=== PATIENT | female | born 1990 | race African-American/Black ===

== ENCOUNTER 2016-09-23 07:05 | Emergency (ER) | payer SELFPAY ==
[~2016-09-23] VITALS: Ht 162.6 cm; Wt 122.5 kg
[~2016-09-23 07:05] MED LIST: PANT40TA3 PO; PENI500T PO; TRAM-29 PO
[2016-09-23 07:33] VITALS: BP 146/69
[2016-09-23] MEDS ORDERED: IBUPROFEN 600 MG TABLET. PO ONE (07:45)
--- NOTE | 2016-09-23 08:17 | PHYS DOC ---
Past Medical History Past Medical History: Asthma, Hypertension Past Surgical History: , Tonsillectomy Additional Information: Nonsmoker Alcohol Use: Occasionally Drug Use: None Adult General Chief Complaint Chief Complaint: FLU SYMPTOM HPI HPI Patient is a 25 year old female who presents with fever and cough for 4 days. She's had a fever up to 102F. She has productive cough with nasal congestion and sore throat. She's had posttussive emesis without nausea, vomiting, or abdominal pain. She reports diffuse body aches. She denies difficulty breathing or ear pain. She has an inhaler that she has used approximately once daily. She last took Tylenol at 0200. She did not receive a flu shot this year. She does have multiple coworkers who have been diagnosed with the flu. She does not have a PCP. Review of Systems Review of Systems Constitutional: Reports fever. Eyes: Denies change in visual acuity, redness, or eye pain. [] HENT: Denies ear pain. Reports nasal congestion and sore throat. Respiratory: Denies shortness of breath. Reports productive cough. Cardiovascular: Denies chest pain, palpitations or edema. [] GI: Denies abdominal pain, nausea, bloody stools or diarrhea. Reports posttussive emesis. Musculoskeletal: Denies back pain or joint pain. Reports diffuse myalgias. Integument: Denies rash or skin lesions. [] Neurologic: Denies headache, focal weakness or sensory changes. [] Endocrine: Denies polyuria or polydipsia. [] Psych: Denies anxiety or depression. [] All systems reviewed and negative unless otherwise stated in the HPI. Current Medications Current Medications Current Medications Medications (Trade) Dose Ordered Sig/Kirti Start Time Stop Time Status Last Admin Dose Admin Ibuprofen (Motrin) 600 mg 1X ONCE 09/23/16 07:45 09/23/16 07:46 DC 09/23/16 07:49 600 MG Allergies Allergies Allergies Coded Allergies Type Severity Reaction Last Updated Verified No Known Drug Allergies 08/05/13 No Physical Exam Physical Exam Constitutional: Well developed, well nourished, no acute distress, non-toxic appearance. [] HENT: Normocephalic, atraumatic, bilateral external ears normal, oropharynx moist, no oral exudates, nose normal. Bilateral TMs without erythema or bulging. There is no posterior pharyngeal erythema or tonsillar edema. Bilateral nasal turbinates are swollen and erythematous with purulent drainage. Eyes: PERRLA, EOMI, conjunctiva normal, no discharge. [] Neck: Normal range of motion, no tenderness, supple, no stridor. [] Cardiovascular: Heart rate regular rhythm, no murmur [] Lungs & Thorax: Bilateral breath sounds clear to auscultation without wheezes, rales, or rhonchi. Skin: Warm, dry, no erythema, no rash. [] Neurologic: Alert and oriented X 3, normal motor function, normal sensory function, no focal deficits noted. [] Psychologic: Affect normal, judgement normal, mood normal. [] Current Patient Data Vital Signs Vital Signs Date Time Temp Pulse Resp B/P Pulse Ox O2 Delivery O2 Flow Rate FiO2 09/23/16 07:33 99.0 81 18 98 Room Air 99.0 Lab Values Laboratory Tests Test 09/23/16 07:30 Influenza Type A Antigen Negative (NEGATIVE) Influenza Type B Antigen Negative (NEGATIVE) EKG EKG [] Radiology/Procedures Radiology/Procedures [] Course & Med Decision Making Course & Med Decision Making Pertinent Labs and Imaging studies reviewed. (See chart for details) [] Dragon Disclaimer Dragon Disclaimer This electronic medical record was generated, in whole or in part, using a voice recognition dictation system. Departure Departure Impression: Primary Impression: Influenza-like illness Disposition: 01 HOME, SELF-CARE Condition: STABLE Referrals: NO PCP (PCP) Patient Instructions: Viral Infections, [id number], Viral Syndrome Additional Instructions: Your flu test was negative today. You appear to have another viral illness. Antibiotics do not help to treat viral infections. Please continue to use your inhaler as needed for cough or shortness of breath. Use as directed. Please take the prescribed cough medication as directed. Please take [id number] Tylenol and ibuprofen for fever and pain control. Please drink lots of water to stay hydrated and get plenty of rest. Please follow up with a primary care provider within the next week. Return to the emergency department if you have high fevers, difficulty breathing , or other new or concerning symptoms. Scripts Benzonatate 200 Mg Capsule1 Cap PO TID #30 CAP Prov:SONG MYERS 09/23/16 SONG MYERS Sep 23, 2016 08:17
[2016-09-23 08:18] LABS: OBC FLU VALID
[2016-09-23] MEDS ORDERED: BENZ200C39 PO (08:31)
== END 2016-09-23 09:11 | disposition home or self-care (01) ==
LOC: ER 07:05
DX: J11.1 Influenza due to unidentified influenza virus with other respiratory manifestations (principal); J45.909 Unspecified asthma, uncomplicated; I10 Essential (primary) hypertension; Z90.89 Acquired absence of other organs
CPT/HCPCS: 87804; 99284

== ENCOUNTER 2016-10-31 19:34 | Emergency (ER) | payer SELFPAY ==
[~2016-10-31] VITALS: Ht 162.6 cm; Wt 127.0 kg
[~2016-10-31 19:34] MED LIST changes: +BENZ200C39 PO
[2016-10-31 20:33] VITALS: BP 149/100
[2016-10-31] MEDS ORDERED: NAPR550T PO (21:03)
[2016-10-31] MEDS ORDERED: TRAM1TAB4 PO (21:03)
--- NOTE | 2016-10-31 21:03 | PHYS DOC ---
Past Medical History Past Medical History: Asthma, Hypertension Past Surgical History: , Tonsillectomy Alcohol Use: Occasionally Drug Use: None Adult General Chief Complaint Chief Complaint: KNEE SWELLING HPI HPI Patient is a 25 year old female presents with atraumatic left knee pain and swelling for the past 3 days. 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 She denies any history of bone forming disorders. She denies any history of inflammatory arthritide's. Review of Systems Review of Systems Constitutional: Denies fever or chills [] Eyes: Denies change in visual acuity, redness, or eye pain [] HENT: Denies nasal congestion or sore throat [] Respiratory: Denies cough or shortness of breath [] Cardiovascular: No additional information not addressed in HPI [] GI: Denies abdominal pain, nausea, vomiting, bloody stools or diarrhea [] : Denies dysuria or hematuria [] Musculoskeletal: Denies back pain or joint pain [] Integument: Denies rash or skin lesions [] Neurologic: Denies headache, focal weakness or sensory changes [] Endocrine: Denies polyuria or polydipsia [] Allergies Allergies Allergies Coded Allergies Type Severity Reaction Last Updated Verified No Known Drug Allergies 08/05/13 No Physical Exam Physical Exam Constitutional: Well developed, well nourished, no acute distress, non-toxic appearance. [] HENT: Normocephalic, atraumatic, bilateral external ears normal, oropharynx moist, no oral exudates, nose normal. [] Eyes: PERRLA, EOMI, conjunctiva normal, no discharge. [] Neck: Normal range of motion, no tenderness, supple, no stridor. [] Cardiovascular:Heart rate regular rhythm, no murmur [] Lungs & Thorax: Bilateral breath sounds clear to auscultation [] Abdomen: Bowel sounds normal, soft, no tenderness, no masses, no pulsatile masses. [] Skin: Warm, dry, no erythema, no rash. [] Back: No tenderness, no CVA tenderness. [] Extremities: Left knee with swelling and tenderness to the suprapatellar region. There is no palpable defect. Extensor mechanism is intact. There is no fusiform swelling or erythema. Neurologic: Alert and oriented X 3, normal motor function, normal sensory function, no focal deficits noted. [] Psychologic: Affect normal, judgement normal, mood normal. [] Current Patient Data Vital Signs Vital Signs Date Time Temp Pulse Resp B/P Pulse Ox O2 Delivery O2 Flow Rate FiO2 10/31/16 20:33 97.6 78 16 99 Room Air 97.6 Lab Values Laboratory Tests Test 10/31/16 19:31 POC Urine HCG, Qualitative Hcg negative (Negative) EKG EKG [] Radiology/Procedures Radiology/Procedures [] Course & Med Decision Making Course & Med Decision Making Pertinent Labs and Imaging studies reviewed. (See chart for details) [] Dragon Disclaimer Dragon Disclaimer This electronic medical record was generated, in whole or in part, using a voice recognition dictation system. Departure Departure Impression: Primary Impression: Bursitis Condition: GOOD Referrals: NO PCP (PCP) Patient Instructions: Bursitis, [id number] Additional Instructions: 1. Take the medication as prescribed. 2. Review the discharge instructions for self-care and reasons to return the emergency department. 3. Follow-up with a primary care doctor within the next 10-14 days. Use the pamphlet provided for assistance in finding one. Scripts Tramadol Hcl/Acetaminophen (Tramadol-Acetaminophn 37.5-325)1 Each Tablet1 Tab PO Q6H PAIN #20 TAB Ref 0 Prov:MARCOS HOWARD 10/31/16 Naproxen Sodium (Anaprox Ds)550 Mg [id number] Mg PO BID #30 Prov:MARCOS HOWARD 10/31/16 MARCOS HOWARD Oct 31, 2016 21:03
== END 2016-10-31 21:16 | disposition home or self-care (01) ==
LOC: ER 19:34
DX: M70.52 Other bursitis of knee, left knee (principal); J45.909 Unspecified asthma, uncomplicated; I10 Essential (primary) hypertension
CPT/HCPCS: 81025; 99283

== ENCOUNTER 2017-02-16 10:23 | Observation (INO) | payer SELFPAY ==
[~2017-02-16] VITALS: Ht 162.6 cm; Wt 127.0 kg
[~2017-02-16 10:23] MED LIST changes: -BENZ200C39 PO; +BENZ200C47 PO; +NAPR550T PO; -TRAM-29 PO; +TRAM-48 PO; +TRAM1TAB4 PO
[2017-02-16] MEDS ORDERED: PROMETHAZINE 12.5 MG in IV NORMAL SALINE 50ML 50 ML IV PRN (11:15)
[2017-02-16 11:26] LABS: BILIRUBIN,URINE NEGATIVE (NEG); GLUCOSE,URINE NEGATIVE (NEG); NITRITE,URINE NEGATIVE (NEG); PH,URINE 7.5; PROTEIN,URINE NEGATIVE (NEG-TRACE); UROBILINOGEN,URINE 0.2 mg/dL (0.2 mg/dL)
[2017-02-16] MEDS ORDERED: MORPHINE SULFATE 4 MG/ML DISP.SYRIN. IV ONE ×2 (11:30→13:45)
[2017-02-16 11:32] LABS: BACTERIA,URINE FEW /HPF (0-FEW); SQUAMOUS EPITHELIAL CELL,UR MANY /LPF
[2017-02-16 11:37] LABS: BASO # 0.1 x10^3/uL (0.0-0.2); BASO % 1 % (0-3); EOS % 1 % (0-3); HEMATOCRIT 40.9 % (36.0-47.0); HEMOGLOBIN 13.4 g/dL (12.0-15.5); LYMPH # 1.7 x10^3/uL (1.0-4.8); LYMPH % 13 % (24-48); MEAN CORPUSCULAR HEMOGLOBIN 29 pg (25-35); MEAN CORPUSCULAR HGB CONC 33 g/dL (31-37); MEAN CORPUSCULAR VOLUME 88 fL (79-100); MONO % 5 % (0-9); NEUT % 81 % (31-73); PLATELET COUNT 362 x10^3/uL (140-400); RED BLOOD COUNT 4.63 x10^6/uL (3.50-5.40); RED CELL DISTRIBUTION WIDTH 14.5 % (11.5-14.5); WHITE BLOOD COUNT 12.9 x10^3/uL (4.0-11.0)
[2017-02-16 11:43] LABS: CREATININE 0.8 mg/dL (0.6-1.0); GFR 103.3; POTASSIUM 3.7 mmol/L (3.5-5.1)
[2017-02-16 11:48] LABS: NEG OBC SER NEG; POS OBC SER POS
[2017-02-16 11:49] LABS: ALBUMIN 3.5 g/dL (3.4-5.0); ALBUMIN/GLOBULIN RATIO 0.8 (1.0-1.7); C-REACTIVE PROTEIN 12.8 mg/L (0-3.3); TOTAL BILIRUBIN 0.2 mg/dL (0.2-1.0); TOTAL PROTEIN 7.7 g/dL (6.4-8.2)
[2017-02-16] MEDS ORDERED: IOHEXOL 300 MG/ML 75 ML VIAL IV ONE (12:00)
[2017-02-16] MEDS ORDERED: CONTRAST GIVEN MC PRN (12:15)
--- NOTE | 2017-02-16 12:32 | ED.ADGEN ---
Past Medical History Past Medical History: Asthma, Hypertension Past Surgical History: , Tonsillectomy Alcohol Use: Occasionally Drug Use: None Adult General Chief Complaint Chief Complaint: ABDOMINAL PAIN HPI HPI Patient is a 26 year old -[place] female presents with diffuse umbilical pain with nausea vomiting, and diarrhea. Patient states symptom onset was several hours ago while at work. Patient reports persistence of diffuse abdominal pain. Nausea and diarrhea have gradually subsided. No fever chills or sweats. No urinary frequency urgency. No other acute symptoms or complaints. Patient has an IUD in place and does not have regular menstrual periods. No prior abdominal surgeries. Review of Systems Review of Systems ROS as per HPI. Current Medications Current Medications Current Medications Medications (Trade) Dose Ordered Sig/Kirti Start Time Stop Time Status Last Admin Dose Admin Info (Do NOT chart on this entry -- for MONITORING) 1 each PRN DAILY PRN 02/16/17 12:15 02/18/17 12:14 Iohexol (Omnipaque 300 Mg/ml) 75 ml 1X ONCE 02/16/17 12:00 02/16/17 12:01 DC 02/16/17 12:26 75 ML Morphine Sulfate 4 mg 1X ONCE 02/16/17 13:45 02/16/17 13:46 DC 02/16/17 13:44 4 MG Ondansetron HCl (Zofran) 8 mg 1X ONCE 02/16/17 14:00 02/16/17 14:01 DC 02/16/17 14:10 8 MG Promethazine HCl 12.5 mg/Sodium Chloride 50.5 ml @ 151.5 mls/ hr PRN Q6HRS PRN 02/16/17 11:15 02/16/17 11:32 151.5 MLS/HR Allergies Allergies Allergies Coded Allergies Type Severity Reaction Last Updated Verified No Known Drug Allergies 08/05/13 No Physical Exam Physical Exam Constitutional: Well developed, well nourished, moderate discomfort. HENT: Normocephalic, atraumatic, bilateral external ears normal, oropharynx moist, nose normal. Eyes: PERRLA, EOMI, conjunctiva normal. Neck: Normal range of motion, no tenderness, supple. Cardiovascular:Heart rate regular rhythm, no murmur. Lungs & Thorax: Bilateral breath sounds clear to auscultation. Abdomen: Bowel sounds normal, soft, these, diffuse abdominal pain and tenderness , mild distension with increased bowel sounds. Skin: Warm, dry, no erythema, no rash. Back: No tenderness. Extremities: No tenderness. Neurologic: Alert and oriented X 3, normal motor function, normal sensory function, no focal deficits noted. Psychologic: Affect normal, judgement normal, mood normal. Current Patient Data Vital Signs Vital Signs Date Time Temp Pulse Resp B/P (MAP) Pulse Ox O2 Delivery O2 Flow Rate FiO2 02/16/17 13:44 20 99 Room Air 02/16/17 12:00 70 150/87 (108) 02/16/17 10:35 98.5 98.5 Lab Values Laboratory Tests Test 02/16/17 09:48 02/16/17 10:36 02/16/17 11:25 POC Urine HCG, Qualitative Hcg negative (Negative) Urine Collection Type Void Urine Color Yellow Urine Clarity Cloudy Urine pH 7.5 Urine Specific [place] 1.020 Urine Protein Negative mg/dL (NEG-TRACE) Urine Glucose (UA) Negative mg/dL (NEG) Urine Ketones (Stick) Negative mg/dL (NEG) Urine Blood Trace (NEG) Urine Nitrite Negative (NEG) Urine Bilirubin Negative (NEG) Urine Urobilinogen Dipstick 0.2 mg/dL (0.2 mg/dL) Urine Leukocyte Esterase Negative (NEG) Urine RBC 3-5 /HPF (0-2) Urine WBC 1-4 /HPF (0-4) Urine Squamous Epithelial Cells Many /LPF Urine Amorphous Sediment Present /HPF Urine Bacteria Few /HPF (0-FEW) Urine Mucus Slight /LPF White Blood Count 12.9 x10^3/uL (4.0-11.0) H Red Blood Count 4.63 x10^6/uL (3.50-5.40) Hemoglobin 13.4 g/dL (12.0-15.5) Hematocrit 40.9 % (36.0-47.0) Mean Corpuscular Volume 88 fL (79-100) Mean Corpuscular Hemoglobin 29 pg (25-35) Mean Corpuscular Hemoglobin Concent 33 g/dL (31-37) Red Cell Distribution Width 14.5 % (11.5-14.5) Platelet Count 362 x10^3/uL (140-400) Neutrophils (%) (Auto) 81 % (31-73) H Lymphocytes (%) (Auto) 13 % (24-48) L Monocytes (%) (Auto) 5 % (0-9) Eosinophils (%) (Auto) 1 % (0-3) Basophils (%) (Auto) 1 % (0-3) Neutrophils # (Auto) 10.4 x10^3uL (1.8-7.7) H Lymphocytes # (Auto) 1.7 x10^3/uL (1.0-4.8) Monocytes # (Auto) 0.7 x10^3/uL (0.0-1.1) Eosinophils # (Auto) 0.1 x10^3/uL (0.0-0.7) Basophils # (Auto) 0.1 x10^3/uL (0.0-0.2) Sodium Level 140 mmol/L (136-145) Potassium Level 3.7 mmol/L (3.5-5.1) Chloride Level 105 mmol/L (98-107) Carbon Dioxide Level 31 mmol/L (21-32) Anion Gap 4 (6-14) L Blood Urea Nitrogen 9 mg/dL (7-20) Creatinine 0.8 mg/dL (0.6-1.0) Estimated GFR (Cockcroft-Gault) 103.3 BUN/Creatinine Ratio 11 (6-20) Glucose Level 117 mg/dL (70-99) H Calcium Level 8.0 mg/dL (8.5-10.1) L Total Bilirubin 0.2 mg/dL (0.2-1.0) Aspartate Amino Transferase (AST) 21 U/L (15-37) Alanine Aminotransferase (ALT) 16 U/L (14-59) Alkaline Phosphatase 49 U/L (46-116) C-Reactive Protein, Quantitative 12.8 mg/L (0-3.3) H Total Protein 7.7 g/dL (6.4-8.2) Albumin 3.5 g/dL (3.4-5.0) Albumin/Globulin Ratio 0.8 (1.0-1.7) L Lipase 86 U/L (73-393) Serum Test, Qualitative Negative (NEG) Laboratory Tests 02/16/17 11:25 Laboratory Tests 02/16/17 11:25 EKG EKG [] Radiology/Procedures Radiology/Procedures [CT abd/pelvis: Probable mild gallbladder wall thickening. Cholelithiasis present.] Course & Med Decision Making Course & Med Decision Making Pertinent Labs and Imaging studies reviewed. (See chart for details) [With persistent abdominal pain nausea vomiting despite repeated IV antiemetics. Lab work, CT reviewed and suggestive of possible cholecystitis. Will admit to the hospital service for further evaluation and treatment.] Dragon Disclaimer Dragon Disclaimer This electronic medical record was generated, in whole or in part, using a voice recognition dictation system. FREDIS WILD DO Feb 16, 2017 12:32
--- NOTE | 2017-02-16 13:23 | RAD ---
CT of the abdomen and pelvis with contrast, 02/16/2017: History: Abdominal pain Multidetector CT imaging was performed following an IV bolus injection of iodinated contrast material. No oral contrast material was administered for this study. No hepatic abnormality is seen. No dense gallstones are seen. A previous ultrasound study did demonstrate the presence of gallstones. There is a suggestion of mild gallbladder wall thickening. No pancreatic abnormality is detected. The spleen is of normal size. No renal abnormality is detected. The abdominal aorta is unremarkable. No adenopathy is seen in the abdomen or pelvis. An IUD is present centrally in the uterus. The bowel loops are not dilated. The appendix is visualized and shows no abnormality. No free fluid or free air is evident in the abdomen or pelvis. IMPRESSION: 1. An IUD is present centrally in the uterus. 2. Probable mild gallbladder wall thickening. Cholelithiasis was described on a prior gallbladder ultrasound exam. 3. Otherwise no acute abdominal or pelvic abnormality is detected. PQRS Compliance Statement: One or more of the following individualized dose reduction techniques were utilized for this examination: 1. Automated exposure control 2. Adjustment of the mA and/or kV according to patient size 3. Use of iterative reconstruction technique
[2017-02-16] MEDS ORDERED: ONDANSETRON PF 4 MG/2 ML VIAL. IV ONE (14:00)
[2017-02-16] MEDS ORDERED: ONDANSETRON PF 4 MG/2 ML VIAL. IV PRN ×2 (14:15→16:30)
[2017-02-16] MEDS: IV NORMAL SALINE 1000ML BAG 1,000 ML IV SCH ×3 (14:17→21:17)
[2017-02-16] MEDS ORDERED: CIPROFLOXACIN 400MG PREMIX 200 ML IV ONE (14:30)
--- NOTE | 2017-02-16 15:31 | PDOC2 ---
GI CONSULT Reason For Consult: Abd pain HPI: HPI: 26 y/o female under house arrest evaluated in ER w/ pending admission. Overnight onset of epigastric pain w/ some radiation to chest and back w/ associated n/v; occurred while at work at [place] [facility]. Fourth occurrence of similar symptoms, most recently 2 weeks ago (resolved), also twice during pregnancies. At that time apparently diagnosed w/ gallstones at . This episode is much worse; she feels like she's in labor. Says had EGD and colonoscopy at at some point, reportedly unrevealing. No diarrhea or constipation; no hematemesis, melena, or hematochezia. Occasional heartburn, untreated/not concerning to her. No dysphagia or weight loss. Occasional ibuprofen use. Labs w/ elevated WBC, glucose, and CRP. Normal Hgb, LFTs, and lipase. hCG neg. CT w/ mild gallbladder wall thickening, note IUD. Started on IV Cipro and Flagyl. PMH: PMH: HTN, asthma, tonsillectomy, x 2, IUD Social History: Smoke: No ALCOHOL: rare Drugs: None ROS: GEN: Denies fevers, chills, sweats HEENT: Denies blurred vision, sore throat CV: +chest pain RESP: Denies shortness of air, cough GI: Per HPI : Denies hematuria, dysuria ENDO: Denies weight changes NEURO: Denies confusion, dizziness MSK: +back pain SKIN: Denies jaundice, pruritus Vitals: Vitals: Vital Signs Date Time Temp Pulse Resp B/P (MAP) Pulse Ox O2 Delivery O2 Flow Rate FiO2 02/16/17 13:44 20 99 Room Air 02/16/17 12:00 70 150/87 (108) 02/16/17 10:35 98.5 98.5 Labs: Labs: Laboratory Tests Test 02/16/17 09:48 02/16/17 10:36 02/16/17 11:25 Bedside Urine HCG, Qualitative Hcg negative (Negative) Urine Collection Type Void Urine Color Yellow Urine Clarity Cloudy Urine pH 7.5 Urine Specific [place] 1.020 Urine Protein Negative mg/dL (NEG-TRACE) Urine Glucose (UA) Negative mg/dL (NEG) Urine Ketones (Stick) Negative mg/dL (NEG) Urine Blood Trace (NEG) Urine Nitrite Negative (NEG) Urine Bilirubin Negative (NEG) Urine Urobilinogen Dipstick 0.2 mg/dL (0.2 mg/dL) Urine Leukocyte Esterase Negative (NEG) Urine RBC 3-5 /HPF (0-2) Urine WBC 1-4 /HPF (0-4) Urine Squamous Epithelial Cells Many /LPF Urine Amorphous Sediment Present /HPF Urine Bacteria Few /HPF (0-FEW) Urine Mucus Slight /LPF White Blood Count 12.9 x10^3/uL (4.0-11.0) Red Blood Count 4.63 x10^6/uL (3.50-5.40) Hemoglobin 13.4 g/dL (12.0-15.5) Hematocrit 40.9 % (36.0-47.0) Mean Corpuscular Volume 88 fL (79-100) Mean Corpuscular Hemoglobin 29 pg (25-35) Mean Corpuscular Hemoglobin Concent 33 g/dL (31-37) Red Cell Distribution Width 14.5 % (11.5-14.5) Platelet Count 362 x10^3/uL (140-400) Neutrophils (%) (Auto) 81 % (31-73) Lymphocytes (%) (Auto) 13 % (24-48) Monocytes (%) (Auto) 5 % (0-9) Eosinophils (%) (Auto) 1 % (0-3) Basophils (%) (Auto) 1 % (0-3) Neutrophils # (Auto) 10.4 x10^3uL (1.8-7.7) Lymphocytes # (Auto) 1.7 x10^3/uL (1.0-4.8) Monocytes # (Auto) 0.7 x10^3/uL (0.0-1.1) Eosinophils # (Auto) 0.1 x10^3/uL (0.0-0.7) Basophils # (Auto) 0.1 x10^3/uL (0.0-0.2) Sodium Level 140 mmol/L (136-145) Potassium Level 3.7 mmol/L (3.5-5.1) Chloride Level 105 mmol/L (98-107) Carbon Dioxide Level 31 mmol/L (21-32) Anion Gap 4 (6-14) Blood Urea Nitrogen 9 mg/dL (7-20) Creatinine 0.8 mg/dL (0.6-1.0) Estimated GFR (Cockcroft-Gault) 103.3 BUN/Creatinine Ratio 11 (6-20) Glucose Level 117 mg/dL (70-99) Calcium Level 8.0 mg/dL (8.5-10.1) Total Bilirubin 0.2 mg/dL (0.2-1.0) Aspartate Amino Transf (AST/SGOT) 21 U/L (15-37) Alanine Aminotransferase (ALT/SGPT) 16 U/L (14-59) Alkaline Phosphatase 49 U/L (46-116) C-Reactive Protein, Quantitative 12.8 mg/L (0-3.3) Total Protein 7.7 g/dL (6.4-8.2) Albumin 3.5 g/dL (3.4-5.0) Albumin/Globulin Ratio 0.8 (1.0-1.7) Lipase 86 U/L (73-393) Serum Test, Qualitative Negative (NEG) Allergies: Coded Allergies: No Known Drug Allergies (Unverified , 08/05/13) Medications: Current Medications Medications (Trade) Dose Ordered Sig/Kirti Route PRN Reason Start Time Stop Time Status Last Admin Dose Admin Promethazine HCl 12.5 mg/Sodium Chloride 50.5 ml @ 151.5 mls/ hr PRN Q6HRS PRN IV NAUSEA/VOMITING 02/16/17 11:15 02/16/17 11:32 Morphine Sulfate 4 mg 1X ONCE IV 02/16/17 11:30 02/16/17 11:31 DC 02/16/17 11:32 Iohexol (Omnipaque 300 Mg/ml) 75 ml 1X ONCE IV 02/16/17 12:00 02/16/17 12:01 DC 02/16/17 12:26 Morphine Sulfate 4 mg 1X ONCE IV 02/16/17 13:45 02/16/17 13:46 DC 02/16/17 13:44 Ondansetron HCl (Zofran) 8 mg 1X ONCE IV 02/16/17 14:00 02/16/17 14:01 DC 02/16/17 14:10 Imaging: Imaging: CT A/P w/ IV contrast No hepatic abnormality is seen. No dense gallstones are seen. A previous ultrasound study did demonstrate the presence of gallstones. There is a suggestion of mild gallbladder wall thickening. No pancreatic abnormality is detected. The spleen is of normal size. No renal abnormality is detected. The abdominal aorta is unremarkable. No adenopathy is seen in the abdomen or pelvis. An IUD is present centrally in the uterus. The bowel loops are not dilated. The appendix is visualized and shows no abnormality. No free fluid or free air is evident in the abdomen or pelvis. IMPRESSION: 1. An IUD is present centrally in the uterus. 2. Probable mild gallbladder wall thickening. Cholelithiasis was described on a prior gallbladder ultrasound exam. 3. Otherwise no acute abdominal or pelvic abnormality is detected. PE: GEN: looks uncomfortable HEENT: Atraumatic, PERRL LUNGS: CTAB HEART: RRR ABD: S/ND, epigastric tenderness, obese EXTREMITY: No edema SKIN: No rashes, no jaundice NEURO/PSYCH: A & O 3 A/P: A/P: Upper abd pain, n/v H/o gallstones -three previous "attacks" - more severe this time Abnormal CT -as above, GB wall thickening Heartburn -occasionally, not concerning -reports previously normal EGD -occasional NSAID use CRC screen -reports previously normal colonoscopy, average risk Leukocytosis, HTN, obesity -- Check abd US, consult surgery. Keep NPO, will add acid legal receptionist empirically. MICHAEL GONZALEZ Feb 16, 2017 15:31
[2017-02-16 16:15] VITALS: BP 171/102
--- NOTE | 2017-02-16 16:18 | PDOC1 ---
History and Physical Date of Admission Date of Admission 02/16/2017 4:15 PM Identification/Chief Complaint Chief Complaint Chief complaint abdominal pain and epigastric region Problems: History of Present Illness History of Present Illness History of present illness: A 26-year-old -[place] female patient with prior history of gallstones presented to the ER with complaints of acute abdominal pain started last night with intractable nausea and vomiting. Symptoms improved with the IV medications in the ER however patient still complains of some more epigastric abdominal pain, got worse with food she ate in the restaurant. Patient had similar episodes in the past however her symptoms resolved by itself but this time pain is intractable in nature, 10 over 10, worse with food, located in the epigastric region. Denies any fever or chills or hematemesis or hematochezia denies any Past medical history gallstones, hypertension, asthma, Past surgical history: , Tonsillectomy Personal history no smoking, no alcohol, no drug abuse Family history: Unknown to patient no cancers as of her knowledge. Allergies NKDA Social History Smoke: No ALCOHOL: rare Drugs: None Current Problem List Problem List Problems Medical Problems: (1) Abdominal pain Status: Acute (2) Nausea and vomiting Status: Acute Current Medications Current Medications Current Medications Medications (Trade) Dose Ordered Sig/Kirti Start Time Stop Time Status Last Admin Dose Admin Ciprofloxacin Lactate 200 ml @ 200 mls/hr ONCE ONCE 02/16/17 14:30 02/16/17 15:29 DC 02/16/17 14:19 200 MLS/HR Famotidine (Pepcid) 20 mg QHS 02/16/17 21:00 Info (Do NOT chart on this entry -- for MONITORING) 1 each PRN DAILY PRN 02/16/17 12:15 02/18/17 12:14 Iohexol (Omnipaque 300 Mg/ml) 75 ml 1X ONCE 02/16/17 12:00 02/16/17 12:01 DC 02/16/17 12:26 75 ML Metronidazole 100 ml @ 100 mls/hr 1X ONCE 02/16/17 14:15 02/16/17 15:14 DC 02/16/17 15:35 100 MLS/HR Morphine Sulfate 2 mg PRN Q2HR PRN 02/16/17 14:15 02/17/17 14:14 Ondansetron HCl (Zofran) 4 mg PRN Q8HRS PRN 02/16/17 14:15 02/17/17 14:14 Promethazine HCl 12.5 mg/Sodium Chloride 50.5 ml @ 151.5 mls/ hr PRN Q6HRS PRN 02/16/17 11:15 02/16/17 11:32 151.5 MLS/HR Sodium Chloride 1,000 ml @ 150 mls/hr Q6H40M 02/16/17 14:30 02/17/17 14:29 02/16/17 14:17 150 MLS/HR Allergies Allergies Allergies Coded Allergies Type Severity Reaction Last Updated Verified No Known Drug Allergies 08/05/13 No ROS Review of System CONSTITUTIONAL: No fever or chills EYES: No recent changes SKIN: No rash or itching CARDIOVASCULAR: No chest pain, syncope, palpitations, or edema RESPIRATORY: No SOB or cough GASTROINTESTINAL: nausea, vomiting or abdominal pain NEUROLOGICAL: No headaches or weakness ENDOCRINE: No cold or heat intolerance GENITOURINARY: No urgency or frequency of urination MUSCULOSKELETAL: No back pain or joint pain LYMPHATICS: No enlarged lymph nodes PSYCHIATRIC: No anxiety or depression Physical Exam Physical Exam GEN.: Obese. Alert and oriented. 3 in mild distress HEENT: Head is normocephalic, atraumatic NECK: Supple. LUNGS: Clear to auscultation. HEART: RRR, S1, S2 present. Peripheral pulses intact ABDOMEN: Soft, epigastric tender. Positive bowel sounds. EXTREMITIES: Without any cyanosis. NEUROLOGIC: Normal speech, normal tone PSYCHIATRIC: Normal affect, normal mood. SKIN: No visible ulcerations Vitals Vitals Vital Signs Date Time Temp Pulse Resp B/P (MAP) Pulse Ox O2 Delivery O2 Flow Rate FiO2 02/16/17 13:44 20 99 Room Air 02/16/17 12:00 70 150/87 (108) 02/16/17 10:35 98.5 98.5 Labs Labs Laboratory Tests Test 02/16/17 09:48 02/16/17 10:36 02/16/17 11:25 Bedside Urine HCG, Qualitative Hcg negative (Negative) Urine Collection Type Void Urine Color Yellow Urine Clarity Cloudy Urine pH 7.5 Urine Specific [place] 1.020 Urine Protein Negative mg/dL (NEG-TRACE) Urine Glucose (UA) Negative mg/dL (NEG) Urine Ketones (Stick) Negative mg/dL (NEG) Urine Blood Trace (NEG) Urine Nitrite Negative (NEG) Urine Bilirubin Negative (NEG) Urine Urobilinogen Dipstick 0.2 mg/dL (0.2 mg/dL) Urine Leukocyte Esterase Negative (NEG) Urine RBC 3-5 /HPF (0-2) Urine WBC 1-4 /HPF (0-4) Urine Squamous Epithelial Cells Many /LPF Urine Amorphous Sediment Present /HPF Urine Bacteria Few /HPF (0-FEW) Urine Mucus Slight /LPF White Blood Count 12.9 x10^3/uL (4.0-11.0) Red Blood Count 4.63 x10^6/uL (3.50-5.40) Hemoglobin 13.4 g/dL (12.0-15.5) Hematocrit 40.9 % (36.0-47.0) Mean Corpuscular Volume 88 fL (79-100) Mean Corpuscular Hemoglobin 29 pg (25-35) Mean Corpuscular Hemoglobin Concent 33 g/dL (31-37) Red Cell Distribution Width 14.5 % (11.5-14.5) Platelet Count 362 x10^3/uL (140-400) Neutrophils (%) (Auto) 81 % (31-73) Lymphocytes (%) (Auto) 13 % (24-48) Monocytes (%) (Auto) 5 % (0-9) Eosinophils (%) (Auto) 1 % (0-3) Basophils (%) (Auto) 1 % (0-3) Neutrophils # (Auto) 10.4 x10^3uL (1.8-7.7) Lymphocytes # (Auto) 1.7 x10^3/uL (1.0-4.8) Monocytes # (Auto) 0.7 x10^3/uL (0.0-1.1) Eosinophils # (Auto) 0.1 x10^3/uL (0.0-0.7) Basophils # (Auto) 0.1 x10^3/uL (0.0-0.2) Sodium Level 140 mmol/L (136-145) Potassium Level 3.7 mmol/L (3.5-5.1) Chloride Level 105 mmol/L (98-107) Carbon Dioxide Level 31 mmol/L (21-32) Anion Gap 4 (6-14) Blood Urea Nitrogen 9 mg/dL (7-20) Creatinine 0.8 mg/dL (0.6-1.0) Estimated GFR (Cockcroft-Gault) 103.3 BUN/Creatinine Ratio 11 (6-20) Glucose Level 117 mg/dL (70-99) Calcium Level 8.0 mg/dL (8.5-10.1) Total Bilirubin 0.2 mg/dL (0.2-1.0) Aspartate Amino Transf (AST/SGOT) 21 U/L (15-37) Alanine Aminotransferase (ALT/SGPT) 16 U/L (14-59) Alkaline Phosphatase 49 U/L (46-116) C-Reactive Protein, Quantitative 12.8 mg/L (0-3.3) Total Protein 7.7 g/dL (6.4-8.2) Albumin 3.5 g/dL (3.4-5.0) Albumin/Globulin Ratio 0.8 (1.0-1.7) Lipase 86 U/L (73-393) Serum Test, Qualitative Negative (NEG) Laboratory Tests Test 02/16/17 09:48 02/16/17 10:36 02/16/17 11:25 Bedside Urine HCG, Qualitative Hcg negative (Negative) Urine Collection Type Void Urine Color Yellow Urine Clarity Cloudy Urine pH 7.5 Urine Specific [place] 1.020 Urine Protein Negative mg/dL (NEG-TRACE) Urine Glucose (UA) Negative mg/dL (NEG) Urine Ketones (Stick) Negative mg/dL (NEG) Urine Blood Trace (NEG) Urine Nitrite Negative (NEG) Urine Bilirubin Negative (NEG) Urine Urobilinogen Dipstick 0.2 mg/dL (0.2 mg/dL) Urine Leukocyte Esterase Negative (NEG) Urine RBC 3-5 /HPF (0-2) Urine WBC 1-4 /HPF (0-4) Urine Squamous Epithelial Cells Many /LPF Urine Amorphous Sediment Present /HPF Urine Bacteria Few /HPF (0-FEW) Urine Mucus Slight /LPF White Blood Count 12.9 x10^3/uL (4.0-11.0) Red Blood Count 4.63 x10^6/uL (3.50-5.40) Hemoglobin 13.4 g/dL (12.0-15.5) Hematocrit 40.9 % (36.0-47.0) Mean Corpuscular Volume 88 fL (79-100) Mean Corpuscular Hemoglobin 29 pg (25-35) Mean Corpuscular Hemoglobin Concent 33 g/dL (31-37) Red Cell Distribution Width 14.5 % (11.5-14.5) Platelet Count 362 x10^3/uL (140-400) Neutrophils (%) (Auto) 81 % (31-73) Lymphocytes (%) (Auto) 13 % (24-48) Monocytes (%) (Auto) 5 % (0-9) Eosinophils (%) (Auto) 1 % (0-3) Basophils (%) (Auto) 1 % (0-3) Neutrophils # (Auto) 10.4 x10^3uL (1.8-7.7) Lymphocytes # (Auto) 1.7 x10^3/uL (1.0-4.8) Monocytes # (Auto) 0.7 x10^3/uL (0.0-1.1) Eosinophils # (Auto) 0.1 x10^3/uL (0.0-0.7) Basophils # (Auto) 0.1 x10^3/uL (0.0-0.2) Sodium Level 140 mmol/L (136-145) Potassium Level 3.7 mmol/L (3.5-5.1) Chloride Level 105 mmol/L (98-107) Carbon Dioxide Level 31 mmol/L (21-32) Anion Gap 4 (6-14) Blood Urea Nitrogen 9 mg/dL (7-20) Creatinine 0.8 mg/dL (0.6-1.0) Estimated GFR (Cockcroft-Gault) 103.3 BUN/Creatinine Ratio 11 (6-20) Glucose Level 117 mg/dL (70-99) Calcium Level 8.0 mg/dL (8.5-10.1) Total Bilirubin 0.2 mg/dL (0.2-1.0) Aspartate Amino Transf (AST/SGOT) 21 U/L (15-37) Alanine Aminotransferase (ALT/SGPT) 16 U/L (14-59) Alkaline Phosphatase 49 U/L (46-116) C-Reactive Protein, Quantitative 12.8 mg/L (0-3.3) Total Protein 7.7 g/dL (6.4-8.2) Albumin 3.5 g/dL (3.4-5.0) Albumin/Globulin Ratio 0.8 (1.0-1.7) Lipase 86 U/L (73-393) Serum Test, Qualitative Negative (NEG) VTE Prophylaxis Ordered VTE Prophylaxis Devices: Yes VTE Pharmacological Prophylaxi: No Assessment/Plan Assessment/Plan Acute epigastric abdominal pain likely due to gallstones/questionable cholecystitis. Hypertension Asthma Obesity BMI 48 Plan Keep patient nothing by mouth, started on IV hydration with normal saline at 100 mL / hr Pain control with IV morphine 2 mg every 2 hours Continue ciprofloxacin and Flagyl. Consult gastroenterology and general surgery Symptomatic treatment for vomiting with IV Zofran When necessary hydralazine for hypertension, also start her on a low-dose metoprolol. When necessary nebulizations Ultrasound abdomen ordered and result pending Discharge planning based on patient's clinical improvement and the surgical recommendations and hemodynamic stability. Patient wants to go home tomorrow however it DC depends symptomatology and imaging studies. Labs, images reviewed Case discussed with ER physician. YOSELIN SHRESTHA MD Feb 16, 2017 16:18
[2017-02-16] MEDS ORDERED: hydrALAZINE 20 MG/ML VIAL. IVP PRN (16:30)
[2017-02-16] MEDS ORDERED: ACETAMINOPHEN 325 MG TABLET. PO PRN (16:30)
[2017-02-16] MEDS ORDERED: ALBUTEROL SULFATE 2.5 MG/3 ML NEBU. NEB PRN (16:30)
--- NOTE | 2017-02-16 16:34 | RAD ---
Gallbladder ultrasound, 02/16/2017: History: Abdominal pain, cholelithiasis There are multiple echogenic foci along the posterior wall the gallbladder. Posterior acoustic shadowing is not clearly seen due to adjacent bowel. These gallstones were also evident on an old study from 2009. The gallbladder wall is mildly thickened, best seen anteriorly. No pericholecystic edema is seen. The common hepatic duct is of normal caliber. No hepatic mass is seen. The liver was incompletely visualized in this large patient. The pancreas was obscured by overlying bowel. The visualized portions of the right kidney are unremarkable. IMPRESSION: Cholelithiasis with mild gallbladder wall thickening. The gallbladder wall thickening can be due to a variety of causes including acute or chronic cholecystitis, hypoproteinemia, liver disease or renal disease.
[2017-02-16] MEDS: HYDROcodone/APAP 5/325MG 1 TAB TABLET PO PRN ×2 (16:45→22:50)
[2017-02-16 17:05] VITALS: BP 151/104
[2017-02-16] MEDS: MORPHINE SULFATE 2 MG/ML DISP.SYRIN. IV PRN ×3 (18:06→22:56)
[2017-02-16 19:55] VITALS: BP 138/84
[2017-02-16] MEDS: METOPROLOL TART IMMED RELEASE 25 MG TABLET. PO SCH (20:17)
[2017-02-16] MEDS ORDERED: FAMOTIDINE 20 MG/2 ML VIAL IVP SCH (21:00)
[2017-02-16] MEDS: CIPROFLOXACIN 400MG PREMIX 200 ML IV SCH (22:50)
[2017-02-16 23:14] VITALS: BP 146/90
[2017-02-17] MEDS: MORPHINE SULFATE 2 MG/ML DISP.SYRIN. IV PRN ×3 (02:23→08:08)
[2017-02-17 03:16] VITALS: BP 132/67
[2017-02-17] MEDS: IV NORMAL SALINE 1000ML BAG 1,000 ML IV SCH ×2 (06:21→13:00)
[2017-02-17 07:00] VITALS: BP 149/93
[2017-02-17 07:10] LABS: CALCIUM 8.4 mg/dL (8.5-10.1); CREATININE 0.8 mg/dL (0.6-1.0); GFR 103.3; POTASSIUM 3.7 mmol/L (3.5-5.1)
[2017-02-17] MEDS ORDERED: SURGICEL HEMOSTAT 4X8 EACH. ONE (07:30)
[2017-02-17] MEDS ORDERED: BUPIVACAINE-EPI 0.25%-1:200000 50 ML VIAL. ONE (07:31)
[2017-02-17] MEDS ORDERED: IOHEXOL 300 MG/ML 50 ML VIAL. ONE (07:31)
[2017-02-17 07:37] LABS: BASO % 0 % (0-3); EOS % 2 % (0-3); HEMATOCRIT 38.1 % (36.0-47.0); HEMOGLOBIN 12.9 g/dL (12.0-15.5); LYMPH # 2.3 x10^3/uL (1.0-4.8); LYMPH % 22 % (24-48); MEAN CORPUSCULAR HEMOGLOBIN 29 pg (25-35); MEAN CORPUSCULAR HGB CONC 34 g/dL (31-37); MEAN CORPUSCULAR VOLUME 87 fL (79-100); MONO % 9 % (0-9); NEUT % 67 % (31-73); PLATELET COUNT 359 x10^3/uL (140-400); RED BLOOD COUNT 4.38 x10^6/uL (3.50-5.40); RED CELL DISTRIBUTION WIDTH 14.7 % (11.5-14.5); WHITE BLOOD COUNT 10.2 x10^3/uL (4.0-11.0)
[2017-02-17] MEDS: CIPROFLOXACIN 400MG PREMIX 200 ML IV SCH (08:07)
[2017-02-17] MEDS: METOPROLOL TART IMMED RELEASE 25 MG TABLET. PO SCH (08:08)
--- NOTE | 2017-02-17 08:42 | PDOC2 ---
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 Yesterday the pain returned after having chipotle for dinner. The pain was worse, associated nausea and emesis. Discussed surgery options, she is wanting to discharge home and return for surgery at later time Past Medical History Past Medical History obesity, cholelithiasis Past Surgical History Past Surgical History: (x2) Family History Family History: Hypertension Social History No ALCOHOL: rare Drugs: None Lives: with Family Current Problem List Problem List Problems Medical Problems: (1) Abdominal pain Status: Acute (2) Nausea and vomiting Status: Acute Current Medications Current Medications Current Medications Promethazine HCl 12.5 mg/Sodium Chloride 50.5 ml @ 151.5 mls/ hr PRN Q6HRS PRN IV NAUSEA/VOMITING Last administered on 02/16/17 11:32; Start 02/16/17 at 11:15 Morphine Sulfate 4 mg 1X ONCE IV Last administered on 02/16/17 11:32; Start 02/16/17 at 11:30; Stop 02/16/17 at 11:31; Status DC Iohexol (Omnipaque 300 Mg/ml) 75 ml 1X ONCE IV Last administered on 02/16/17 12:26; Start 02/16/17 at 12:00; Stop 02/16/17 at 12:01; Status DC Info (Do NOT chart on this entry -- for MONITORING) 1 each PRN DAILY PRN MC SEE COMMENTS; Start 02/16/17 at 12:15; Stop 02/18/17 at 12:14 Morphine Sulfate 4 mg 1X ONCE IV Last administered on 02/16/17 13:44; Start 02/16/17 at 13:45; Stop 02/16/17 at 13:46; Status DC Ondansetron HCl (Zofran) 8 mg 1X ONCE IV Last administered on 02/16/17 14:10 ; Start 02/16/17 at 14:00; Stop 02/16/17 at 14:01; Status DC Ciprofloxacin Lactate 200 ml @ 200 mls/hr Q12HR IV Last administered on 08:07; Start 02/16/17 at 23:00 Metronidazole 100 ml @ 100 mls/hr 1X ONCE IV Last administered on 02/16/17 15:35; Start 02/16/17 at 14:15; Stop 02/16/17 at 15:14; Status DC Ciprofloxacin Lactate 200 ml @ 200 mls/hr ONCE ONCE IV Last administered on 14:19; Start 02/16/17 at 14:30; Stop 02/16/17 at 15:29; Status DC Ondansetron HCl (Zofran) 4 mg PRN Q8HRS PRN IV NAUSEA/VOMITING Last administered on 02/16/17 20:24; Start 02/16/17 at 14:15; Stop 02/17/17 at 14:14 Morphine Sulfate 2 mg PRN Q2HR PRN IV PAIN Last administered on 02/17/17 08:08 ; Start 02/16/17 at 14:15; Stop 02/17/17 at 14:14 Sodium Chloride 1,000 ml @ 150 mls/hr Q6H40M IV Last administered on 14:17; Start 02/16/17 at 14:30; Stop 02/16/17 at 22:47; Status DC Famotidine (Pepcid) 20 mg QHS IVP Last administered on 02/16/17 20:16; Start 02/16/17 at 21:00 Metoprolol Tartrate (Lopressor) 12.5 mg BID PO Last administered on 02/17/17 08:08; Start 02/16/17 at 21:00 Acetaminophen (Tylenol) 325 mg PRN Q6HRS PRN PO MILD PAIN / TEMP; Start at 16:30 Acetaminophen/ Hydrocodone Bitart (Lortab 5/325) 1 tab PRN Q6HRS PRN PO MODERATE TO SEVERE PAIN Last administered on 02/16/17 22:50; Start 02/16/17 at 16:30 Hydralazine HCl (Apresoline) 10 mg PRN Q4HRS PRN IVP ELEVATED BP, SEE COMMENTS Last administered on 7/13/17at 17:36; Start 02/16/17 at 16:30 Ondansetron HCl (Zofran) 4 mg PRN Q8HRS PRN IV NAUSEA/VOMITING; Start 02/16/17 at 16:30 Albuterol Sulfate (Ventolin Neb Soln) 2.5 mg PRN Q4HRS PRN NEB SHORTNESS OF BREATH; Start 02/16/17 at 16:30 Sodium Chloride 1,000 ml @ 100 mls/hr Q10H IV Last administered on 02/17/17t 06:21; Start 02/16/17 at 17:00 Cefazolin Sodium/ Dextrose 50 ml @ 100 mls/hr 1X PREOP IV ; Start 02/17/17 at 06:15; Stop 02/18/17 at 18:00 Cellulose 1 each STK-MED ONCE .ROUTE ; Start 02/17/17 at 07:30; Stop 02/17/17 at 07:31; Status DC Iohexol (Omnipaque 300 Mg/ml) 50 ml STK-MED ONCE .ROUTE ; Start 02/17/17 at 07: 31; Stop 02/17/17 at 07:32; Status DC Bupivacaine HCl/ Epinephrine Bitart (Marcaine-Epi 0.25%-1:[id number]) 50 ml STK-MED ONCE .ROUTE ; Start 02/17/17 at 07:31; Stop 02/17/17 at 07:32; Status DC Active Scripts Active Tramadol-Acetaminophn 37.5-325 (Tramadol Hcl/Acetaminophen) 1 Each Tablet 1 Tab PO Q6H Anaprox Ds (Naproxen Sodium) 550 Mg Tablet 550 Mg PO BID Benzonatate 200 Mg Capsule 1 Cap PO TID Ultram (Tramadol Hcl) 50 Mg Tablet 50 Mg PO Q6H PRN Penicillin V Potassium 500 Mg Tablet 1 Tab PO TID Protonix (Pantoprazole Sodium) 40 Mg Tablet.dr 40 Mg PO DAILY Allergies Allergies: Coded Allergies: No Known Drug Allergies (Unverified , 08/05/13) ROS General: No: Chills, Other (fevers) PSYCHOLOGICAL ROS: No: Anxiety, Depression Eyes: No Blurry vision, No Double vision HEENT: No: Heacaches, Sore Throat Hematological and Lymphatic: No: Bleeding Problems, Blood Clots Respiratory: YES: Shortness of breath, No: Cough Cardiovascular: yes Chest Pain (acute abdominal pain), No Palpitations Gastrointestinal: Yes Other (see hpi), No Diarrhea, No Constipation Genitourinary: No Dysuria, No Hematuria Musculoskeletal: No Joint Pain, No Muscle Pain Neurological: No Confusion, No Numbness/Tingling Skin: No Pruritus, No Rash Physical Exam General: Alert, Oriented X3, Cooperative, No acute distress HEENT: PERRLA, Mucous membr. moist/pink Lungs: Clear to auscultation, Normal air movement Heart: Regular rate, Normal S1, Normal S2, No murmurs Abdomen: Soft, Other (ND, + RUQ and epigastric pain) Extremities: No clubbing, No cyanosis Skin: No rashes, No breakdown Neuro: Normal speech, Sensation intact Psych/Mental Status: Mental status NL, Mood NL MUSCULOSKELETAL: No deformity, No swelling Vitals VITALS Vital Signs Date Time Temp Pulse Resp B/P (MAP) Pulse Ox O2 Delivery O2 Flow Rate FiO2 02/17/17 08:08 92 149/93 02/17/17 08:08 Room Air 02/17/17 07:00 98.8 18 96 98.8 Labs Labs Laboratory Tests Test 02/16/17 09:48 02/16/17 10:36 02/16/17 11:25 02/17/17 06:05 Bedside Urine HCG, Qualitative Hcg negative (Negative) Urine Collection Type Void Urine Color Yellow Urine Clarity Cloudy Urine pH 7.5 Urine Specific [place] 1.020 Urine Protein Negative mg/dL (NEG-TRACE) Urine Glucose (UA) Negative mg/dL (NEG) Urine Ketones (Stick) Negative mg/dL (NEG) Urine Blood Trace (NEG) Urine Nitrite Negative (NEG) Urine Bilirubin Negative (NEG) Urine Urobilinogen Dipstick 0.2 mg/dL (0.2 mg/dL) Urine Leukocyte Esterase Negative (NEG) Urine RBC 3-5 /HPF (0-2) Urine WBC 1-4 /HPF (0-4) Urine Squamous Epithelial Cells Many /LPF Urine Amorphous Sediment Present /HPF Urine Bacteria Few /HPF (0-FEW) Urine Mucus Slight /LPF White Blood Count 12.9 x10^3/uL (4.0-11.0) 10.2 x10^3/uL (4.0-11.0) Red Blood Count 4.63 x10^6/uL (3.50-5.40) 4.38 x10^6/uL (3.50-5.40) Hemoglobin 13.4 g/dL (12.0-15.5) 12.9 g/dL (12.0-15.5) Hematocrit 40.9 % (36.0-47.0) 38.1 % (36.0-47.0) Mean Corpuscular Volume 88 fL (79-100) 87 fL (79-100) Mean Corpuscular Hemoglobin 29 pg (25-35) 29 pg (25-35) Mean Corpuscular Hemoglobin Concent 33 g/dL (31-37) 34 g/dL (31-37) Red Cell Distribution Width 14.5 % (11.5-14.5) 14.7 % (11.5-14.5) Platelet Count 362 x10^3/uL (140-400) 359 x10^3/uL (140-400) Neutrophils (%) (Auto) 81 % (31-73) 67 % (31-73) Lymphocytes (%) (Auto) 13 % (24-48) 22 % (24-48) Monocytes (%) (Auto) 5 % (0-9) 9 % (0-9) Eosinophils (%) (Auto) 1 % (0-3) 2 % (0-3) Basophils (%) (Auto) 1 % (0-3) 0 % (0-3) Neutrophils # (Auto) 10.4 x10^3uL (1.8-7.7) 6.8 x10^3uL (1.8-7.7) Lymphocytes # (Auto) 1.7 x10^3/uL (1.0-4.8) 2.3 x10^3/uL (1.0-4.8) Monocytes # (Auto) 0.7 x10^3/uL (0.0-1.1) 0.9 x10^3/uL (0.0-1.1) Eosinophils # (Auto) 0.1 x10^3/uL (0.0-0.7) 0.2 x10^3/uL (0.0-0.7) Basophils # (Auto) 0.1 x10^3/uL (0.0-0.2) 0.0 x10^3/uL (0.0-0.2) Sodium Level 140 mmol/L (136-145) 142 mmol/L (136-145) Potassium Level 3.7 mmol/L (3.5-5.1) 3.7 mmol/L (3.5-5.1) Chloride Level 105 mmol/L (98-107) 107 mmol/L (98-107) Carbon Dioxide Level 31 mmol/L (21-32) 27 mmol/L (21-32) Anion Gap 4 (6-14) 8 (6-14) Blood Urea Nitrogen 9 mg/dL (7-20) 4 mg/dL (7-20) Creatinine 0.8 mg/dL (0.6-1.0) 0.8 mg/dL (0.6-1.0) Estimated GFR (Cockcroft-Gault) 103.3 103.3 BUN/Creatinine Ratio 11 (6-20) Glucose Level 117 mg/dL (70-99) 89 mg/dL (70-99) Calcium Level 8.0 mg/dL (8.5-10.1) 8.4 mg/dL (8.5-10.1) Total Bilirubin 0.2 mg/dL (0.2-1.0) Aspartate Amino Transf (AST/SGOT) 21 U/L (15-37) Alanine Aminotransferase (ALT/SGPT) 16 U/L (14-59) Alkaline Phosphatase 49 U/L (46-116) C-Reactive Protein, Quantitative 12.8 mg/L (0-3.3) Total Protein 7.7 g/dL (6.4-8.2) Albumin 3.5 g/dL (3.4-5.0) Albumin/Globulin Ratio 0.8 (1.0-1.7) Lipase 86 U/L (73-393) Serum Test, Qualitative Negative (NEG) Laboratory Tests Test 02/16/17 09:48 02/16/17 10:36 02/16/17 11:25 02/17/17 06:05 Bedside Urine HCG, Qualitative Hcg negative (Negative) Urine Collection Type Void Urine Color Yellow Urine Clarity Cloudy Urine pH 7.5 Urine Specific [place] 1.020 Urine Protein Negative mg/dL (NEG-TRACE) Urine Glucose (UA) Negative mg/dL (NEG) Urine Ketones (Stick) Negative mg/dL (NEG) Urine Blood Trace (NEG) Urine Nitrite Negative (NEG) Urine Bilirubin Negative (NEG) Urine Urobilinogen Dipstick 0.2 mg/dL (0.2 mg/dL) Urine Leukocyte Esterase Negative (NEG) Urine RBC 3-5 /HPF (0-2) Urine WBC 1-4 /HPF (0-4) Urine Squamous Epithelial Cells Many /LPF Urine Amorphous Sediment Present /HPF Urine Bacteria Few /HPF (0-FEW) Urine Mucus Slight /LPF White Blood Count 12.9 x10^3/uL (4.0-11.0) 10.2 x10^3/uL (4.0-11.0) Red Blood Count 4.63 x10^6/uL (3.50-5.40) 4.38 x10^6/uL (3.50-5.40) Hemoglobin 13.4 g/dL (12.0-15.5) 12.9 g/dL (12.0-15.5) Hematocrit 40.9 % (36.0-47.0) 38.1 % (36.0-47.0) Mean Corpuscular Volume 88 fL (79-100) 87 fL (79-100) Mean Corpuscular Hemoglobin 29 pg (25-35) 29 pg (25-35) Mean Corpuscular Hemoglobin Concent 33 g/dL (31-37) 34 g/dL (31-37) Red Cell Distribution Width 14.5 % (11.5-14.5) 14.7 % (11.5-14.5) Platelet Count 362 x10^3/uL (140-400) 359 x10^3/uL (140-400) Neutrophils (%) (Auto) 81 % (31-73) 67 % (31-73) Lymphocytes (%) (Auto) 13 % (24-48) 22 % (24-48) Monocytes (%) (Auto) 5 % (0-9) 9 % (0-9) Eosinophils (%) (Auto) 1 % (0-3) 2 % (0-3) Basophils (%) (Auto) 1 % (0-3) 0 % (0-3) Neutrophils # (Auto) 10.4 x10^3uL (1.8-7.7) 6.8 x10^3uL (1.8-7.7) Lymphocytes # (Auto) 1.7 x10^3/uL (1.0-4.8) 2.3 x10^3/uL (1.0-4.8) Monocytes # (Auto) 0.7 x10^3/uL (0.0-1.1) 0.9 x10^3/uL (0.0-1.1) Eosinophils # (Auto) 0.1 x10^3/uL (0.0-0.7) 0.2 x10^3/uL (0.0-0.7) Basophils # (Auto) 0.1 x10^3/uL (0.0-0.2) 0.0 x10^3/uL (0.0-0.2) Sodium Level 140 mmol/L (136-145) 142 mmol/L (136-145) Potassium Level 3.7 mmol/L (3.5-5.1) 3.7 mmol/L (3.5-5.1) Chloride Level 105 mmol/L (98-107) 107 mmol/L (98-107) Carbon Dioxide Level 31 mmol/L (21-32) 27 mmol/L (21-32) Anion Gap 4 (6-14) 8 (6-14) Blood Urea Nitrogen 9 mg/dL (7-20) 4 mg/dL (7-20) Creatinine 0.8 mg/dL (0.6-1.0) 0.8 mg/dL (0.6-1.0) Estimated GFR (Cockcroft-Gault) 103.3 103.3 BUN/Creatinine Ratio 11 (6-20) Glucose Level 117 mg/dL (70-99) 89 mg/dL (70-99) Calcium Level 8.0 mg/dL (8.5-10.1) 8.4 mg/dL (8.5-10.1) Total Bilirubin 0.2 mg/dL (0.2-1.0) Aspartate Amino Transf (AST/SGOT) 21 U/L (15-37) Alanine Aminotransferase (ALT/SGPT) 16 U/L (14-59) Alkaline Phosphatase 49 U/L (46-116) C-Reactive Protein, Quantitative 12.8 mg/L (0-3.3) Total Protein 7.7 g/dL (6.4-8.2) Albumin 3.5 g/dL (3.4-5.0) Albumin/Globulin Ratio 0.8 (1.0-1.7) Lipase 86 U/L (73-393) Serum Test, Qualitative Negative (NEG) Assessment/Plan Assessment/Plan abdominal pain, cholelithiasis, mild gallbladder wall thickening obesity BMI 48 she is not willing to have surgery today, she would like to discharge home and FU for outpt surgery. Discussed risks for choledocholithiasis, cholecystitis, pancreatitis Seen by Dr Michel will leave contact information to FU MARIANN MICHEL MD 02/17/17 0915: CONSULT Allergies Allergies: Coded Allergies: No Known Drug Allergies (Unverified , 08/05/13) Assessment/Plan Assessment/Plan Patient seen and examined. Feeling better this morning. Morbid obesity. Mild TTP RUQ. U/S showing Gallstones. Patient needs to attend and wants to F/ U outpatient for elective surgery. Agree with Leanne's assessment and plan. TERRI CARMEN APRN Feb 17, 2017 08:42 MARIANN MICHEL MD Feb 17, 2017 09:15
--- NOTE | 2017-02-17 10:52 | PDOC ---
Subjective: Subjective: No n/v, ate a few bites, still abd pain, says needs "two pain pills at the same time." Objective: Objective: D/w Kiana. Refused surgery. Vital Signs: Vital Signs Date Time Temp Pulse Resp B/P (MAP) Pulse Ox O2 Delivery O2 Flow Rate FiO2 02/17/17 08:53 Room Air 02/17/17 08:08 92 149/93 02/17/17 07:00 98.8 18 96 98.8 Labs: Laboratory Tests Test 02/16/17 11:25 02/17/17 06:05 White Blood Count 12.9 x10^3/uL 10.2 x10^3/uL Red Blood Count 4.63 x10^6/uL 4.38 x10^6/uL Hemoglobin 13.4 g/dL 12.9 g/dL Hematocrit 40.9 % 38.1 % Mean Corpuscular Volume 88 fL 87 fL Mean Corpuscular Hemoglobin 29 pg 29 pg Mean Corpuscular Hemoglobin Concent 33 g/dL 34 g/dL Red Cell Distribution Width 14.5 % 14.7 % Platelet Count 362 x10^3/uL 359 x10^3/uL Neutrophils (%) (Auto) 81 % 67 % Lymphocytes (%) (Auto) 13 % 22 % Monocytes (%) (Auto) 5 % 9 % Eosinophils (%) (Auto) 1 % 2 % Basophils (%) (Auto) 1 % 0 % Neutrophils # (Auto) 10.4 x10^3uL 6.8 x10^3uL Lymphocytes # (Auto) 1.7 x10^3/uL 2.3 x10^3/uL Monocytes # (Auto) 0.7 x10^3/uL 0.9 x10^3/uL Eosinophils # (Auto) 0.1 x10^3/uL 0.2 x10^3/uL Basophils # (Auto) 0.1 x10^3/uL 0.0 x10^3/uL Sodium Level 140 mmol/L 142 mmol/L Potassium Level 3.7 mmol/L 3.7 mmol/L Chloride Level 105 mmol/L 107 mmol/L Carbon Dioxide Level 31 mmol/L 27 mmol/L Anion Gap 4 8 Blood Urea Nitrogen 9 mg/dL 4 mg/dL Creatinine 0.8 mg/dL 0.8 mg/dL Estimated GFR (Cockcroft-Gault) 103.3 103.3 BUN/Creatinine Ratio 11 Glucose Level 117 mg/dL 89 mg/dL Calcium Level 8.0 mg/dL 8.4 mg/dL Total Bilirubin 0.2 mg/dL Aspartate Amino Transf (AST/SGOT) 21 U/L Alanine Aminotransferase (ALT/SGPT) 16 U/L Alkaline Phosphatase 49 U/L C-Reactive Protein, Quantitative 12.8 mg/L Total Protein 7.7 g/dL Albumin 3.5 g/dL Albumin/Globulin Ratio 0.8 Lipase 86 U/L Serum Test, Qualitative Negative PE: GEN: NAD, obese ABD: epigastric tenderness NEURO/PSYCH: A & O 3 A/P: Cholelithiasis, GB wall thickening Upper abd pain -- Fourth gallbladder attack. Declined surgery as inpt. DC per primary. MICHAEL GONZALEZ Feb 17, 2017 10:52
[2017-02-17 11:00] VITALS: BP 148/96
[2017-02-17] MEDS: HYDROcodone/APAP 5/325MG 1 TAB TABLET PO PRN (11:10)
--- NOTE | 2017-02-17 11:50 | PDOC ---
PROGRESS NOTES Chief Complaint Chief Complaint 1. Cholelithiasis 2. Cholecystitis 3. Abdominal Pain 4. HTN 5. Asthma 6. Obesity History of Present Illness History of Present Illness pt is resting comfortably in bed this morning, discussed possibility of going home and doing cholescystectomy outpt as she is feeling a lot better, will wait for approval from subspecialties Vitals Vitals Vital Signs Date Time Temp Pulse Resp B/P (MAP) Pulse Ox O2 Delivery O2 Flow Rate FiO2 02/17/17 11:10 Room Air 02/17/17 08:08 92 149/93 02/17/17 07:00 98.8 18 96 98.8 Physical Exam General: Alert, Oriented X3, Cooperative, No acute distress Heart: Regular rate, Normal S1, Normal S2, No murmurs Lungs: Clear Abdomen: Normal bowel sounds, Soft, No tenderness Extremities: No clubbing, No cyanosis, No edema Skin: No rashes, No breakdown, No significant lesion Labs LABS Laboratory Tests Test 02/17/17 06:05 White Blood Count 10.2 x10^3/uL (4.0-11.0) Red Blood Count 4.38 x10^6/uL (3.50-5.40) Hemoglobin 12.9 g/dL (12.0-15.5) Hematocrit 38.1 % (36.0-47.0) Mean Corpuscular Volume 87 fL (79-100) Mean Corpuscular Hemoglobin 29 pg (25-35) Mean Corpuscular Hemoglobin Concent 34 g/dL (31-37) Red Cell Distribution Width 14.7 % (11.5-14.5) Platelet Count 359 x10^3/uL (140-400) Neutrophils (%) (Auto) 67 % (31-73) Lymphocytes (%) (Auto) 22 % (24-48) Monocytes (%) (Auto) 9 % (0-9) Eosinophils (%) (Auto) 2 % (0-3) Basophils (%) (Auto) 0 % (0-3) Neutrophils # (Auto) 6.8 x10^3uL (1.8-7.7) Lymphocytes # (Auto) 2.3 x10^3/uL (1.0-4.8) Monocytes # (Auto) 0.9 x10^3/uL (0.0-1.1) Eosinophils # (Auto) 0.2 x10^3/uL (0.0-0.7) Basophils # (Auto) 0.0 x10^3/uL (0.0-0.2) Sodium Level 142 mmol/L (136-145) Potassium Level 3.7 mmol/L (3.5-5.1) Chloride Level 107 mmol/L (98-107) Carbon Dioxide Level 27 mmol/L (21-32) Anion Gap 8 (6-14) Blood Urea Nitrogen 4 mg/dL (7-20) Creatinine 0.8 mg/dL (0.6-1.0) Estimated GFR (Cockcroft-Gault) 103.3 Glucose Level 89 mg/dL (70-99) Calcium Level 8.4 mg/dL (8.5-10.1) Review of Systems Review of Systems denies N/V/D and OSORIO Assessment and Plan Assessmemt and Plan Assessment 1. Cholelithiasis 2. Cholecystitis 3. Abdominal Pain 4. HTN 5. Asthma 6. Obesity Plan 1. Consulted GI and surgery, await input 2. Outpt cholecystectomy if okay per subspecialty 3. Continue home meds 4. PT/OT 5. Appreciate subspecialty input 6. Discussed plan of care with nursing 7. Zofran for nausea 8. Reviewed imaging: US and abd/pelv CT showed gallstones and possible inflammation of gallbladder 9. Possible dc today if okay with subspecialty Problems: Comment Review of Relevant I have reviewed the following items shweta (where applicable) has been applied. Labs Laboratory Tests Test 02/16/17 09:48 02/16/17 10:36 02/16/17 11:25 02/17/17 06:05 Bedside Urine HCG, Qualitative Hcg negative (Negative) Urine Collection Type Void Urine Color Yellow Urine Clarity Cloudy Urine pH 7.5 Urine Specific [place] 1.020 Urine Protein Negative mg/dL (NEG-TRACE) Urine Glucose (UA) Negative mg/dL (NEG) Urine Ketones (Stick) Negative mg/dL (NEG) Urine Blood Trace (NEG) Urine Nitrite Negative (NEG) Urine Bilirubin Negative (NEG) Urine Urobilinogen Dipstick 0.2 mg/dL (0.2 mg/dL) Urine Leukocyte Esterase Negative (NEG) Urine RBC 3-5 /HPF (0-2) Urine WBC 1-4 /HPF (0-4) Urine Squamous Epithelial Cells Many /LPF Urine Amorphous Sediment Present /HPF Urine Bacteria Few /HPF (0-FEW) Urine Mucus Slight /LPF White Blood Count 12.9 x10^3/uL (4.0-11.0) 10.2 x10^3/uL (4.0-11.0) Red Blood Count 4.63 x10^6/uL (3.50-5.40) 4.38 x10^6/uL (3.50-5.40) Hemoglobin 13.4 g/dL (12.0-15.5) 12.9 g/dL (12.0-15.5) Hematocrit 40.9 % (36.0-47.0) 38.1 % (36.0-47.0) Mean Corpuscular Volume 88 fL (79-100) 87 fL (79-100) Mean Corpuscular Hemoglobin 29 pg (25-35) 29 pg (25-35) Mean Corpuscular Hemoglobin Concent 33 g/dL (31-37) 34 g/dL (31-37) Red Cell Distribution Width 14.5 % (11.5-14.5) 14.7 % (11.5-14.5) Platelet Count 362 x10^3/uL (140-400) 359 x10^3/uL (140-400) Neutrophils (%) (Auto) 81 % (31-73) 67 % (31-73) Lymphocytes (%) (Auto) 13 % (24-48) 22 % (24-48) Monocytes (%) (Auto) 5 % (0-9) 9 % (0-9) Eosinophils (%) (Auto) 1 % (0-3) 2 % (0-3) Basophils (%) (Auto) 1 % (0-3) 0 % (0-3) Neutrophils # (Auto) 10.4 x10^3uL (1.8-7.7) 6.8 x10^3uL (1.8-7.7) Lymphocytes # (Auto) 1.7 x10^3/uL (1.0-4.8) 2.3 x10^3/uL (1.0-4.8) Monocytes # (Auto) 0.7 x10^3/uL (0.0-1.1) 0.9 x10^3/uL (0.0-1.1) Eosinophils # (Auto) 0.1 x10^3/uL (0.0-0.7) 0.2 x10^3/uL (0.0-0.7) Basophils # (Auto) 0.1 x10^3/uL (0.0-0.2) 0.0 x10^3/uL (0.0-0.2) Sodium Level 140 mmol/L (136-145) 142 mmol/L (136-145) Potassium Level 3.7 mmol/L (3.5-5.1) 3.7 mmol/L (3.5-5.1) Chloride Level 105 mmol/L (98-107) 107 mmol/L (98-107) Carbon Dioxide Level 31 mmol/L (21-32) 27 mmol/L (21-32) Anion Gap 4 (6-14) 8 (6-14) Blood Urea Nitrogen 9 mg/dL (7-20) 4 mg/dL (7-20) Creatinine 0.8 mg/dL (0.6-1.0) 0.8 mg/dL (0.6-1.0) Estimated GFR (Cockcroft-Gault) 103.3 103.3 BUN/Creatinine Ratio 11 (6-20) Glucose Level 117 mg/dL (70-99) 89 mg/dL (70-99) Calcium Level 8.0 mg/dL (8.5-10.1) 8.4 mg/dL (8.5-10.1) Total Bilirubin 0.2 mg/dL (0.2-1.0) Aspartate Amino Transf (AST/SGOT) 21 U/L (15-37) Alanine Aminotransferase (ALT/SGPT) 16 U/L (14-59) Alkaline Phosphatase 49 U/L (46-116) C-Reactive Protein, Quantitative 12.8 mg/L (0-3.3) Total Protein 7.7 g/dL (6.4-8.2) Albumin 3.5 g/dL (3.4-5.0) Albumin/Globulin Ratio 0.8 (1.0-1.7) Lipase 86 U/L (73-393) Serum Test, Qualitative Negative (NEG) Laboratory Tests Test 02/17/17 06:05 White Blood Count 10.2 x10^3/uL (4.0-11.0) Red Blood Count 4.38 x10^6/uL (3.50-5.40) Hemoglobin 12.9 g/dL (12.0-15.5) Hematocrit 38.1 % (36.0-47.0) Mean Corpuscular Volume 87 fL (79-100) Mean Corpuscular Hemoglobin 29 pg (25-35) Mean Corpuscular Hemoglobin Concent 34 g/dL (31-37) Red Cell Distribution Width 14.7 % (11.5-14.5) Platelet Count 359 x10^3/uL (140-400) Neutrophils (%) (Auto) 67 % (31-73) Lymphocytes (%) (Auto) 22 % (24-48) Monocytes (%) (Auto) 9 % (0-9) Eosinophils (%) (Auto) 2 % (0-3) Basophils (%) (Auto) 0 % (0-3) Neutrophils # (Auto) 6.8 x10^3uL (1.8-7.7) Lymphocytes # (Auto) 2.3 x10^3/uL (1.0-4.8) Monocytes # (Auto) 0.9 x10^3/uL (0.0-1.1) Eosinophils # (Auto) 0.2 x10^3/uL (0.0-0.7) Basophils # (Auto) 0.0 x10^3/uL (0.0-0.2) Sodium Level 142 mmol/L (136-145) Potassium Level 3.7 mmol/L (3.5-5.1) Chloride Level 107 mmol/L (98-107) Carbon Dioxide Level 27 mmol/L (21-32) Anion Gap 8 (6-14) Blood Urea Nitrogen 4 mg/dL (7-20) Creatinine 0.8 mg/dL (0.6-1.0) Estimated GFR (Cockcroft-Gault) 103.3 Glucose Level 89 mg/dL (70-99) Calcium Level 8.4 mg/dL (8.5-10.1) Medications Current Medications Promethazine HCl 12.5 mg/Sodium Chloride 50.5 ml @ 151.5 mls/ hr PRN Q6HRS PRN IV NAUSEA/VOMITING Last administered on 02/16/17 11:32; Start 02/16/17 at 11:15 Morphine Sulfate 4 mg 1X ONCE IV Last administered on 02/16/17 11:32; Start 02/16/17 at 11:30; Stop 02/16/17 at 11:31; Status DC Iohexol (Omnipaque 300 Mg/ml) 75 ml 1X ONCE IV Last administered on 02/16/17 12:26; Start 02/16/17 at 12:00; Stop 02/16/17 at 12:01; Status DC Info (Do NOT chart on this entry -- for MONITORING) 1 each PRN DAILY PRN MC SEE COMMENTS; Start 02/16/17 at 12:15; Stop 02/18/17 at 12:14 Morphine Sulfate 4 mg 1X ONCE IV Last administered on 02/16/17 13:44; Start 02/16/17 at 13:45; Stop 02/16/17 at 13:46; Status DC Ondansetron HCl (Zofran) 8 mg 1X ONCE IV Last administered on 02/16/17 14:10 ; Start 02/16/17 at 14:00; Stop 02/16/17 at 14:01; Status DC Ciprofloxacin Lactate 200 ml @ 200 mls/hr Q12HR IV Last administered on 08:07; Start 02/16/17 at 23:00 Metronidazole 100 ml @ 100 mls/hr 1X ONCE IV Last administered on 02/16/17 15:35; Start 02/16/17 at 14:15; Stop 02/16/17 at 15:14; Status DC Ciprofloxacin Lactate 200 ml @ 200 mls/hr ONCE ONCE IV Last administered on 14:19; Start 02/16/17 at 14:30; Stop 02/16/17 at 15:29; Status DC Ondansetron HCl (Zofran) 4 mg PRN Q8HRS PRN IV NAUSEA/VOMITING Last administered on 02/16/17 20:24; Start 02/16/17 at 14:15; Stop 02/17/17 at 14:14 Morphine Sulfate 2 mg PRN Q2HR PRN IV PAIN Last administered on 02/17/17 08:08 ; Start 02/16/17 at 14:15; Stop 02/17/17 at 14:14 Sodium Chloride 1,000 ml @ 150 mls/hr Q6H40M IV Last administered on 14:17; Start 02/16/17 at 14:30; Stop 02/16/17 at 22:47; Status DC Famotidine (Pepcid) 20 mg QHS IVP Last administered on 02/16/17 20:16; Start 02/16/17 at 21:00 Metoprolol Tartrate (Lopressor) 12.5 mg BID PO Last administered on 02/17/17 08:08; Start 02/16/17 at 21:00 Acetaminophen (Tylenol) 325 mg PRN Q6HRS PRN PO MILD PAIN / TEMP; Start at 16:30 Acetaminophen/ Hydrocodone Bitart (Lortab 5/325) 1 tab PRN Q6HRS PRN PO MODERATE TO SEVERE PAIN Last administered on 02/17/17 11:10; Start 02/16/17 at 16:30 Hydralazine HCl (Apresoline) 10 mg PRN Q4HRS PRN IVP ELEVATED BP, SEE COMMENTS Last administered on 02/16/17 17:36; Start 02/16/17 at 16:30 Ondansetron HCl (Zofran) 4 mg PRN Q8HRS PRN IV NAUSEA/VOMITING; Start 02/16/17 at 16:30 Albuterol Sulfate (Ventolin Neb Soln) 2.5 mg PRN Q4HRS PRN NEB SHORTNESS OF BREATH; Start 02/16/17 at 16:30 Sodium Chloride 1,000 ml @ 100 mls/hr Q10H IV Last administered on 02/17/17 06:21; Start 02/16/17 at 17:00 Cefazolin Sodium/ Dextrose 50 ml @ 100 mls/hr 1X PREOP IV ; Start 02/17/17 at 06:15; Stop 02/18/17 at 18:00 Cellulose 1 each STK-MED ONCE .ROUTE ; Start 02/17/17 at 07:30; Stop 02/17/17 at 07:31; Status DC Iohexol (Omnipaque 300 Mg/ml) 50 ml STK-MED ONCE .ROUTE ; Start 02/17/17 at 07: 31; Stop 02/17/17 at 07:32; Status DC Bupivacaine HCl/ Epinephrine Bitart (Marcaine-Epi 0.25%-[id number]) 50 ml STK-MED ONCE .ROUTE ; Start 02/17/17 at 07:31; Stop 02/17/17 at 07:32; Status DC Active Scripts Active Tramadol-Acetaminophn 37.5-325 (Tramadol Hcl/Acetaminophen) 1 Each Tablet 1 Tab PO Q6H Anaprox Ds (Naproxen Sodium) 550 Mg Tablet 550 Mg PO BID Benzonatate 200 Mg Capsule 1 Cap PO TID Ultram (Tramadol Hcl) 50 Mg Tablet 50 Mg PO Q6H PRN Penicillin V Potassium 500 Mg Tablet 1 Tab PO TID Protonix (Pantoprazole Sodium) 40 Mg Tablet.dr 40 Mg PO DAILY Vitals/I & O Vital Sign - Last 24 Hours 02/16/17 02/16/17 02/16/17 02/16/17 12:00 13:30 13:44 16:15 Temp 98.8 98.8 Pulse 70 74 80 Resp 18 17 20 20 B/P (MAP) 150/87 (108) 180/127 (144) 171/102 (125) Pulse Ox 100 99 99 100 O2 Delivery Room Air Room Air Room Air Room Air 02/16/17 02/16/17 02/16/17 02/16/17 16:45 17:05 17:36 18:06 Pulse 80 B/P (MAP) 151/104 (120) 151/104 Pulse Ox 99 99 02/16/17 02/16/17 02/16/17 02/16/17 19:55 20:05 20:10 20:16 Temp 97.9 97.9 Pulse 91 Resp 18 18 B/P (MAP) 138/84 (102) Pulse Ox 99 98 98 O2 Delivery Room Air Room Air Room Air Room Air 02/16/17 02/16/17 02/16/17 02/16/17 20:17 22:50 22:56 23:14 Temp 97.9 97.9 Pulse 91 94 Resp 20 18 18 B/P (MAP) 138/84 146/90 (108) Pulse Ox 98 98 100 O2 Delivery Room Air Room Air Room Air 02/16/17 02/17/17 02/17/17 02/17/17 23:54 02:23 02:55 03:16 Temp 97.9 97.9 Pulse 95 Resp 20 18 18 18 B/P (MAP) 132/67 (88) Pulse Ox 100 100 98 98 O2 Delivery Room Air Room Air Room Air 02/17/17 02/17/17 02/17/17 02/17/17 06:21 07:00 07:20 08:08 Temp 98.8 98.8 Pulse 92 Resp 18 18 B/P (MAP) 149/93 (111) Pulse Ox 98 96 O2 Delivery Room Air Room Air Room Air Room Air 02/17/17 02/17/17 02/17/17 08:08 08:53 11:10 Pulse 92 B/P (MAP) 149/93 O2 Delivery Room Air Room Air Intake and Output 02/16/17 02/16/17 02/17/17 15:00 23:00 07:00 Intake Total 50.5 ml 420 ml 1623 ml Balance 50.5 ml 420 ml 1623 ml ASIA LANDIS III DO Feb 17, 2017 11:50
--- NOTE | 2017-02-17 15:20 | PDOC3 ---
Discharge Summary Visit Information Date of Discharge: Feb 17, 2017 Admitting Diagnosis: gallstones Final Diagnosis Problems Medical Problems: (1) Abdominal pain Status: Acute (2) Nausea and vomiting Status: Acute Brief Hospital Course Allergies Allergies Coded Allergies Type Severity Reaction Last Updated Verified No Known Drug Allergies 08/05/13 No Vital Signs Vital Signs Date Time Temp Pulse Resp B/P (MAP) Pulse Ox O2 Delivery O2 Flow Rate FiO2 02/17/17 12:21 Room Air 02/17/17 11:00 98.9 56 20 148/96 (113) 93 98.9 Lab Results Laboratory Tests Test 02/16/17 09:48 02/16/17 10:36 02/16/17 11:25 02/17/17 06:05 Bedside Urine HCG, Qualitative Hcg negative (Negative) Urine Collection Type Void Urine Color Yellow Urine Clarity Cloudy Urine pH 7.5 Urine Specific [place] 1.020 Urine Protein Negative mg/dL (NEG-TRACE) Urine Glucose (UA) Negative mg/dL (NEG) Urine Ketones (Stick) Negative mg/dL (NEG) Urine Blood Trace (NEG) Urine Nitrite Negative (NEG) Urine Bilirubin Negative (NEG) Urine Urobilinogen Dipstick 0.2 mg/dL (0.2 mg/dL) Urine Leukocyte Esterase Negative (NEG) Urine RBC 3-5 /HPF (0-2) Urine WBC 1-4 /HPF (0-4) Urine Squamous Epithelial Cells Many /LPF Urine Amorphous Sediment Present /HPF Urine Bacteria Few /HPF (0-FEW) Urine Mucus Slight /LPF White Blood Count 12.9 x10^3/uL (4.0-11.0) 10.2 x10^3/uL (4.0-11.0) Red Blood Count 4.63 x10^6/uL (3.50-5.40) 4.38 x10^6/uL (3.50-5.40) Hemoglobin 13.4 g/dL (12.0-15.5) 12.9 g/dL (12.0-15.5) Hematocrit 40.9 % (36.0-47.0) 38.1 % (36.0-47.0) Mean Corpuscular Volume 88 fL (79-100) 87 fL (79-100) Mean Corpuscular Hemoglobin 29 pg (25-35) 29 pg (25-35) Mean Corpuscular Hemoglobin Concent 33 g/dL (31-37) 34 g/dL (31-37) Red Cell Distribution Width 14.5 % (11.5-14.5) 14.7 % (11.5-14.5) Platelet Count 362 x10^3/uL (140-400) 359 x10^3/uL (140-400) Neutrophils (%) (Auto) 81 % (31-73) 67 % (31-73) Lymphocytes (%) (Auto) 13 % (24-48) 22 % (24-48) Monocytes (%) (Auto) 5 % (0-9) 9 % (0-9) Eosinophils (%) (Auto) 1 % (0-3) 2 % (0-3) Basophils (%) (Auto) 1 % (0-3) 0 % (0-3) Neutrophils # (Auto) 10.4 x10^3uL (1.8-7.7) 6.8 x10^3uL (1.8-7.7) Lymphocytes # (Auto) 1.7 x10^3/uL (1.0-4.8) 2.3 x10^3/uL (1.0-4.8) Monocytes # (Auto) 0.7 x10^3/uL (0.0-1.1) 0.9 x10^3/uL (0.0-1.1) Eosinophils # (Auto) 0.1 x10^3/uL (0.0-0.7) 0.2 x10^3/uL (0.0-0.7) Basophils # (Auto) 0.1 x10^3/uL (0.0-0.2) 0.0 x10^3/uL (0.0-0.2) Sodium Level 140 mmol/L (136-145) 142 mmol/L (136-145) Potassium Level 3.7 mmol/L (3.5-5.1) 3.7 mmol/L (3.5-5.1) Chloride Level 105 mmol/L (98-107) 107 mmol/L (98-107) Carbon Dioxide Level 31 mmol/L (21-32) 27 mmol/L (21-32) Anion Gap 4 (6-14) 8 (6-14) Blood Urea Nitrogen 9 mg/dL (7-20) 4 mg/dL (7-20) Creatinine 0.8 mg/dL (0.6-1.0) 0.8 mg/dL (0.6-1.0) Estimated GFR (Cockcroft-Gault) 103.3 103.3 BUN/Creatinine Ratio 11 (6-20) Glucose Level 117 mg/dL (70-99) 89 mg/dL (70-99) Calcium Level 8.0 mg/dL (8.5-10.1) 8.4 mg/dL (8.5-10.1) Total Bilirubin 0.2 mg/dL (0.2-1.0) Aspartate Amino Transf (AST/SGOT) 21 U/L (15-37) Alanine Aminotransferase (ALT/SGPT) 16 U/L (14-59) Alkaline Phosphatase 49 U/L (46-116) C-Reactive Protein, Quantitative 12.8 mg/L (0-3.3) Total Protein 7.7 g/dL (6.4-8.2) Albumin 3.5 g/dL (3.4-5.0) Albumin/Globulin Ratio 0.8 (1.0-1.7) Lipase 86 U/L (73-393) Serum Test, Qualitative Negative (NEG) Laboratory Tests Test 02/17/17 06:05 White Blood Count 10.2 x10^3/uL (4.0-11.0) Red Blood Count 4.38 x10^6/uL (3.50-5.40) Hemoglobin 12.9 g/dL (12.0-15.5) Hematocrit 38.1 % (36.0-47.0) Mean Corpuscular Volume 87 fL (79-100) Mean Corpuscular Hemoglobin 29 pg (25-35) Mean Corpuscular Hemoglobin Concent 34 g/dL (31-37) Red Cell Distribution Width 14.7 % (11.5-14.5) Platelet Count 359 x10^3/uL (140-400) Neutrophils (%) (Auto) 67 % (31-73) Lymphocytes (%) (Auto) 22 % (24-48) Monocytes (%) (Auto) 9 % (0-9) Eosinophils (%) (Auto) 2 % (0-3) Basophils (%) (Auto) 0 % (0-3) Neutrophils # (Auto) 6.8 x10^3uL (1.8-7.7) Lymphocytes # (Auto) 2.3 x10^3/uL (1.0-4.8) Monocytes # (Auto) 0.9 x10^3/uL (0.0-1.1) Eosinophils # (Auto) 0.2 x10^3/uL (0.0-0.7) Basophils # (Auto) 0.0 x10^3/uL (0.0-0.2) Sodium Level 142 mmol/L (136-145) Potassium Level 3.7 mmol/L (3.5-5.1) Chloride Level 107 mmol/L (98-107) Carbon Dioxide Level 27 mmol/L (21-32) Anion Gap 8 (6-14) Blood Urea Nitrogen 4 mg/dL (7-20) Creatinine 0.8 mg/dL (0.6-1.0) Estimated GFR (Cockcroft-Gault) 103.3 Glucose Level 89 mg/dL (70-99) Calcium Level 8.4 mg/dL (8.5-10.1) Brief Hospital Course Ms. Mcmillan is a 26 old [sex] who presented with ]symptomatic gallstones. Admitted Consulted GI and Surgery Pt refused surgery until next week. Pt seen and examined this am Plan is dc with close out pt fu Total time 31 minutes Discharge Information Scheduled Benzonatate (Benzonatate), 1 CAP PO TID Naproxen Sodium (Anaprox Ds), 550 MG PO BID Pantoprazole Sodium (Protonix), 40 MG PO DAILY Penicillin V Potassium (Penicillin V Potassium), 1 TAB PO TID Tramadol Hcl/Acetaminophen (Tramadol-Acetaminophn 37.5-325), 1 TAB PO Q6H Scheduled PRN Tramadol Hcl (Ultram), 50 MG PO Q6H PRN for PAIN ASIA LANDIS III DO Feb 17, 2017 15:20
== END 2017-02-17 13:30 | disposition home or self-care (01) ==
LOC: ER 10:23 → 4 NORTH 14:00
PROVIDERS: ADMIT Internal Medicine; ATTEND Internal Medicine
DX: R10.0 Acute abdomen (principal); R11.2 Nausea with vomiting, unspecified; E66.01 Morbid (severe) obesity due to excess calories; I10 Essential (primary) hypertension; J45.909 Unspecified asthma, uncomplicated; K80.10 Calculus of gallbladder with chronic cholecystitis without obstruction; Z53.20 Procedure and treatment not carried out because of patient's decision for unspecified reasons; Z68.42 Body mass index [BMI] 45.0-49.9, adult; Z82.49 Family history of ischemic heart disease and other diseases of the circulatory system; Z97.5 Presence of (intrauterine) contraceptive device
CPT/HCPCS: 36415; 74177; 76705; 80048; 80053; 81001; 81025; 83690; 84703; 85027; 86140; 94250; 96361; 96365; 96366; 96367; 96375; 96376; 99285; G0378; J0360; J0690; J0744; J2270; J2405; J2550; J3490; J7030; Q9967; S0028; G0379

== ENCOUNTER 2017-02-21 14:19 | Inpatient (IN) | payer SELFPAY ==
[~2017-02-21] VITALS: Ht 162.6 cm; Wt 137.0 kg
[2017-02-21] MEDS ORDERED: IV NORMAL SALINE 1000ML BAG 1,000 ML IV SCH (15:04)
--- NOTE | 2017-02-21 15:10 | PHYS DOC ---
Past Medical History Past Medical History: Asthma, Hypertension Past Surgical History: , Tonsillectomy Alcohol Use: Occasionally Drug Use: None Adult General Chief Complaint Chief Complaint: ABDOMINAL PAIN HPI HPI This is a pleasant 26-year-old -[place] female with a known history cholelithiasis who was seen and admitted to our hospital 4 days ago for cholelithiasis exacerbation. She left the hospital on Monday because she needed to attend a for her family member. She called the surgery clinic earlier today wanted to speak to the surgeon was not able to get her scheduled for her cholecystectomy until . Given her continued pain and the nurse advised her to go to the ER. Patient has had continued pain since being released the hospital 2 days ago is described as sharp and stabbing that waxes and wanes to the epigastric region. It is increased with food and now radiates to the back. She denies any fevers or chills she does complains of nausea and intermittent vomiting. She denies diarrhea, UTI symptoms, vaginal discharge. She denies any recent sick contacts or antibiotic use. She denies any recent travel outside the country. She denies having any lightheaded dizziness or other systemic symptoms. Review of Systems Review of Systems Constitutional: Denies fever or chills [] Eyes: Denies change in visual acuity, redness, or eye pain [] HENT: Denies nasal congestion or sore throat [] Respiratory: Denies cough or shortness of breath [] Cardiovascular: No additional information not addressed in HPI [] GI: She does complain of abdominal pain with nausea and vomiting but no bloody stools constipation or diarrhea. : Denies dysuria or hematuria [] Musculoskeletal: Does complain of pain that radiates from the abdomen to the back. It was not maximal in onset and it is not ripping and tearing in nature Integument: Denies rash or skin lesions [] Neurologic: Denies headache, focal weakness or sensory changes [] Endocrine: Denies polyuria or polydipsia [] Current Medications Current Medications Current Medications Medications (Trade) Dose Ordered Sig/Kirti Start Time Stop Time Status Last Admin Dose Admin Hydromorphone HCl (Dilaudid) 1 mg PRN Q15MIN PRN 02/21/17 15:15 02/22/17 15:14 02/21/17 17:45 1 MG Ondansetron HCl (Zofran) 4 mg 1X ONCE 02/21/17 15:15 02/21/17 15:16 DC 02/21/17 15:35 4 MG Sodium Chloride (Normal Saline Flush) 10 ml QSHIFT PRN 02/21/17 15:15 Allergies Allergies Allergies Coded Allergies Type Severity Reaction Last Updated Verified No Known Drug Allergies 08/05/13 No Physical Exam Physical Exam Constitutional: Well developed, well nourished, no acute distress, non-toxic appearance. [] HENT: Normocephalic, atraumatic, bilateral external ears normal, oropharynx moist, no oral exudates, nose normal. [] Eyes: PERRLA, EOMI, conjunctiva normal, no discharge. [] Neck: Normal range of motion, no tenderness, supple, no stridor. [] Cardiovascular:Heart rate regular rhythm, no murmur [] Lungs & Thorax: Bilateral breath sounds clear to auscultation [] Abdomen: Increased active bowel sounds abdomen is soft but tender to palpation in the right upper quadrant with no specific Kaiser's there is some voluntary guarding of the epigastric region. There is no Shannon Posada sign, no McBurney's point tenderness to palpation. Skin: Warm, dry, no erythema, no rash. [] Back: No tenderness, no CVA tenderness. [] Extremities: No tenderness, no cyanosis, no clubbing, ROM intact, no edema. [] Current Patient Data Vital Signs Vital Signs Date Time Temp Pulse Resp B/P (MAP) Pulse Ox O2 Delivery O2 Flow Rate FiO2 02/21/17 17:45 Room Air 02/21/17 14:28 98.6 84 20 165/101 (122) 97 98.6 Lab Values Laboratory Tests Test 02/21/17 13:48 02/21/17 14:20 02/21/17 14:28 POC Urine HCG, Qualitative Hcg negative (Negative) White Blood Count 10.9 x10^3/uL (4.0-11.0) Red Blood Count 4.54 x10^6/uL (3.50-5.40) Hemoglobin 13.2 g/dL (12.0-15.5) Hematocrit 39.9 % (36.0-47.0) Mean Corpuscular Volume 88 fL (79-100) Mean Corpuscular Hemoglobin 29 pg (25-35) Mean Corpuscular Hemoglobin Concent 33 g/dL (31-37) Red Cell Distribution Width 14.4 % (11.5-14.5) Platelet Count 410 x10^3/uL (140-400) H Neutrophils (%) (Auto) 68 % (31-73) Lymphocytes (%) (Auto) 21 % (24-48) L Monocytes (%) (Auto) 6 % (0-9) Eosinophils (%) (Auto) 5 % (0-3) H Basophils (%) (Auto) 1 % (0-3) Neutrophils # (Auto) 7.4 x10^3uL (1.8-7.7) Lymphocytes # (Auto) 2.3 x10^3/uL (1.0-4.8) Monocytes # (Auto) 0.6 x10^3/uL (0.0-1.1) Eosinophils # (Auto) 0.5 x10^3/uL (0.0-0.7) Basophils # (Auto) 0.1 x10^3/uL (0.0-0.2) Sodium Level 139 mmol/L (136-145) Potassium Level 3.6 mmol/L (3.5-5.1) Chloride Level 101 mmol/L (98-107) Carbon Dioxide Level 28 mmol/L (21-32) Anion Gap 10 (6-14) Blood Urea Nitrogen 6 mg/dL (7-20) L Creatinine 0.8 mg/dL (0.6-1.0) Estimated GFR (Cockcroft-Gault) 103.3 BUN/Creatinine Ratio 8 (6-20) Glucose Level 84 mg/dL (70-99) Calcium Level 9.1 mg/dL (8.5-10.1) Total Bilirubin 0.3 mg/dL (0.2-1.0) Aspartate Amino Transferase (AST) 22 U/L (15-37) Alanine Aminotransferase (ALT) 19 U/L (14-59) Alkaline Phosphatase 52 U/L (46-116) Total Protein 8.1 g/dL (6.4-8.2) Albumin 3.3 g/dL (3.4-5.0) L Albumin/Globulin Ratio 0.7 (1.0-1.7) L Lipase 74 U/L (73-393) Urine Collection Type Unknown Urine Color Yellow Urine Clarity Clear Urine pH 7.5 Urine Specific [place] 1.015 Urine Protein Negative mg/dL (NEG-TRACE) Urine Glucose (UA) Negative mg/dL (NEG) Urine Ketones (Stick) Negative mg/dL (NEG) Urine Blood Large (NEG) Urine Nitrite Negative (NEG) Urine Bilirubin Negative (NEG) Urine Urobilinogen Dipstick 1.0 mg/dL (0.2 mg/dL) Urine Leukocyte Esterase Negative (NEG) Urine RBC 3-5 /HPF (0-2) Urine WBC 1-4 /HPF (0-4) Urine Squamous Epithelial Cells Mod /LPF Urine Bacteria Few /HPF (0-FEW) Urine Mucus Slight /LPF Laboratory Tests 02/21/17 14:20 Laboratory Tests 02/21/17 14:20 EKG EKG [] Radiology/Procedures Radiology/Procedures [] IMAGING REPORT Signed PATIENT: DANIEL PARADA ACCOUNT: [id number] : 1990 LOCATION: ER AGE: 26 SEX: F EXAM STATUS: REG ER ORD. PHYSICIAN: LUPIS ELLSWORTH MD REASON: ruq ab pain PROCEDURE: ABDOMEN LTD INDICATION: Abdominal pain. COMPARISON: 02/16/2017 TECHNIQUE: Grayscale and color ultrasound images obtained through the abdomen. FINDINGS: Aorta/IVC: Poorly seen Pancreas: Poorly seen Liver: Echotexture within normal limits. Regions are not well seen. Gallbladder: Gallstones are visualized. Common Bile Duct: Not dilated. Right Kidney: No hydronephrosis. IMPRESSION: Gallstones are identified as well as gallbladder wall thickening. This gallbladder wall thickening is nonspecific but can be seen with primary gallbladder inflammation, reactive to adjacent hepatic inflammation or a systemic process such as hypoproteinemia. If there is clinical concern for cholecystitis and more information is desired a follow-up nuclear hepatobiliary scan could be helpful to further evaluate given the presence of the patient's gallstones and gallbladder wall thickening. DICTATED and SIGNED BY: DOMENICA JEWELL MD DATE: 02/21/17 1534 CC: LUPIS ELLSWORTH MD; NO PCP ~ Course & Med Decision Making Course & Med Decision Making Pertinent Labs and Imaging studies reviewed. (See chart for details) upon arrival my concern is for her right upper quadrant pain is cholelithiasis working in the cholecystitis or ascending cholangitis. She is afebrile she is not jaundiced and she's not having an altered mental status. test on arrival is negative. Doubt ectopic . Time is now 3 PM Time is now 3:45 PM Patient tells me that their symptoms given during CC are improved. We reviewed labs patient does not have a white count and urinalysis is clear signs of infection. Still pending CMP and blood lipase. Patient tells me that their symptoms given during CC are improved. Ultrasound reviewed at bedside with patient 3:54 pm demonstrates mild gallbladder wall thickening possible cholelithiasis likely cholecystitis. Time is now 6:30 PM Patient tells me that their symptoms given during CC are improved. Her LFTs are normal patient's white blood cell count is normal patient is still having abdominal pain. She would like to be admitted to the hospital for surgical consultation and cholecystectomy. Executive Director Of Nursing note: Internal medicine paged at approximately 6:20 PM Executive Director Of Nursing called at of the service Dr. Vyas Consult called back at 6:23 Discussed the case I presented and they agreed with admission. Time of acceptance 6:23 Impression: Abdominal pain, cholelithiasis symptomatically. Disposition: Admission to the hospital [] Dragon Disclaimer Dragon Disclaimer This electronic medical record was generated, in whole or in part, using a voice recognition dictation system. Departure Departure Impression: Primary Impression: Cholelithiasis Additional Impression: Abdominal pain Disposition: ADMITTED INPATIENT Admitting Physician: Karolyn Deluna Condition: GUARDED Referrals: NO PCP (PCP) Problem Qualifiers LUPIS ELLSWORTH MD Feb 21, 2017 15:10
[2017-02-21] MEDS ORDERED: ONDANSETRON PF 4 MG/2 ML VIAL. IV ONE (15:15)
[2017-02-21] MEDS ORDERED: 0.9 % SODIUM CHLORIDE 10 ML DISP.SYRIN. IV PRN (15:15)
[2017-02-21 15:16] LABS: BILIRUBIN,URINE NEGATIVE (NEG); GLUCOSE,URINE NEGATIVE (NEG); NITRITE,URINE NEGATIVE (NEG); PH,URINE 7.5; PROTEIN,URINE NEGATIVE (NEG-TRACE)
[2017-02-21 15:24] LABS: BACTERIA,URINE FEW /HPF (0-FEW); SQUAMOUS EPITHELIAL CELL,UR MOD /LPF
[2017-02-21 15:28] LABS: BASO # 0.1 x10^3/uL (0.0-0.2); BASO % 1 % (0-3); EOS % 5 % (0-3); HEMATOCRIT 39.9 % (36.0-47.0); HEMOGLOBIN 13.2 g/dL (12.0-15.5); LYMPH # 2.3 x10^3/uL (1.0-4.8); LYMPH % 21 % (24-48); MEAN CORPUSCULAR HEMOGLOBIN 29 pg (25-35); MEAN CORPUSCULAR HGB CONC 33 g/dL (31-37); MEAN CORPUSCULAR VOLUME 88 fL (79-100); MONO % 6 % (0-9); NEUT % 68 % (31-73); PLATELET COUNT 410 x10^3/uL (140-400); RED BLOOD COUNT 4.54 x10^6/uL (3.50-5.40); RED CELL DISTRIBUTION WIDTH 14.4 % (11.5-14.5); WHITE BLOOD COUNT 10.9 x10^3/uL (4.0-11.0)
[2017-02-21] MEDS: HYDROmorphone 2 MG/ML VIAL IV/SQ PRN ×4 (15:36→23:39)
--- NOTE | 2017-02-21 15:40 | RAD ---
INDICATION: Abdominal pain. COMPARISON: 02/16/2017 TECHNIQUE: Grayscale and color ultrasound images obtained through the abdomen. FINDINGS: Aorta/IVC: Poorly seen Pancreas: Poorly seen Liver: Echotexture within normal limits. Regions are not well seen. Gallbladder: Gallstones are visualized. Common Bile Duct: Not dilated. Right Kidney: No hydronephrosis. IMPRESSION: Gallstones are identified as well as gallbladder wall thickening. This gallbladder wall thickening is nonspecific but can be seen with primary gallbladder inflammation, reactive to adjacent hepatic inflammation or a systemic process such as hypoproteinemia. If there is clinical concern for cholecystitis and more information is desired a follow-up nuclear hepatobiliary scan could be helpful to further evaluate given the presence of the patient's gallstones and gallbladder wall thickening.
[2017-02-21 18:11] LABS: CALCIUM 9.1 mg/dL (8.5-10.1); CREATININE 0.8 mg/dL (0.6-1.0); GFR 103.3; POTASSIUM 3.6 mmol/L (3.5-5.1)
[2017-02-21 18:16] LABS: ALBUMIN 3.3 g/dL (3.4-5.0); ALBUMIN/GLOBULIN RATIO 0.7 (1.0-1.7); TOTAL BILIRUBIN 0.3 mg/dL (0.2-1.0); TOTAL PROTEIN 8.1 g/dL (6.4-8.2)
[2017-02-21] MEDS ORDERED: fentaNYL PF VIAL 100 MCG/2 ML VIAL IV PRN (18:45)
[2017-02-21] MEDS ORDERED: ONDANSETRON PF 4 MG/2 ML VIAL. IV PRN ×2 (18:45→19:02)
--- NOTE | 2017-02-21 19:10 | PDOC1 ---
History and Physical Date of Admission Date of Admission DATE: 02/21/17 TIME: 19:04 Identification/Chief Complaint Chief Complaint abd pain, upper Problems: Source Source: Caregiver, Chart review, Patient History of Present Illness History of Present Illness 26 y.o AA female, very obese, weighs 280 lbs, was just here few days ago with acute tanvir, but needed to go home for a of one of her parents, admitted this time for same issues, epigastric pain, not localized yet to RUQ, nausea and emesis, no fevers. NO rpt imaging done. GB stones evident/reviewed base don last scans, Agreeable to sx - was planned on sx the last time but had to leave for the . Now her personal issues have been settled and is ready for sx this admission Past Medical History Cardiovascular: No pertinent hx Pulmonary: No pertinent hx GI: No pertinent hx Heme/Onc: No pertinent hx Hepatobiliary: No pertinent hx Psych: No pertinent hx Rheumatologic: No pertinent hx Infectious disease: No pertinent hx ENT: No pertinent hx Renal/: No pertinent hx Endocrine: No pertinent hx Dermatology: No pertinent hx Past Surgical History Past Surgical History: Family History Family History: Hypertension Social History Smoke: No ALCOHOL: rare Drugs: None Current Problem List Problem List Problems Medical Problems: (1) Abdominal pain Status: Acute Problems: Current Medications Current Medications Current Medications Hydromorphone HCl (Dilaudid) 1 mg PRN Q15MIN PRN IV/SQ PAIN GREATER THAN 3/10 Last administered on 02/21/17 17:45; Start 02/21/17 at 15:15; Stop 02/22/17 at 15:14 Sodium Chloride 1,000 ml @ 1,000 mls/hr Q1H IV Last administered on 02/21/17 15:35; Start 02/21/17 at 15:04; Stop 02/21/17 at 16:03; Status DC Sodium Chloride (Normal Saline Flush) 10 ml QSHIFT PRN IV AFTER MEDS AND BLOOD DRAWS; Start 02/21/17 at 15:15 Ondansetron HCl (Zofran) 4 mg 1X ONCE IV Last administered on 02/21/17 15:35 ; Start 02/21/17 at 15:15; Stop 02/21/17 at 15:16; Status DC Ondansetron HCl (Zofran) 4 mg PRN Q8HRS PRN IV NAUSEA/VOMITING; Start 02/21/17 at 18:45; Stop 02/22/17 at 18:44 Fentanyl Citrate (Fentanyl 2ml Vial) 50 mcg PRN Q1HR PRN IV PAIN; Start at 18:45; Stop 02/22/17 at 18:44 Sodium Chloride 1,000 ml @ 120 mls/hr Q8H20M IV ; Start 02/21/17 at 18:35; Stop 02/22/17 at 18:34 Active Scripts Active Tramadol-Acetaminophn 37.5-325 (Tramadol Hcl/Acetaminophen) 1 Each Tablet 1 Tab PO Q6H Anaprox Ds (Naproxen Sodium) 550 Mg Tablet 550 Mg PO BID Benzonatate 200 Mg Capsule 1 Cap PO TID Ultram (Tramadol Hcl) 50 Mg Tablet 50 Mg PO Q6H PRN Penicillin V Potassium 500 Mg Tablet 1 Tab PO TID Protonix (Pantoprazole Sodium) 40 Mg Tablet.dr 40 Mg PO DAILY Allergies Allergies: Coded Allergies: No Known Drug Allergies (Unverified , 08/05/13) ROS Review of System all 14 pt reveiwed, neg except for in HPI Physical Exam General: Alert, Oriented X3, Cooperative, No acute distress HEENT: Atraumatic, PERRLA, EOMI Lungs: Clear to auscultation, Normal air movement Heart: S1S2, RRR, no thrills, no rubs, no gallops, no murmurs Cardiovascular: S1, S2 Breasts: Normal Abdomen: Soft, Other (epiagstric pain tenderness appreciable on exam,. no rebound, no guarding, NABS) Male Genitals Exam: normal genitalia, normal prostate Rectal Exam: not examined PELVIC: Nml ext genitalia Extremities: No clubbing, No cyanosis, No edema, Normal pulses, No tenderness/ swelling Skin: No rashes, No breakdown, No significant lesion Neuro: Normal gait, Normal speech, Strength at 5/5 X4 ext, Normal tone, Sensation intact, Cranial nerves 3-12 NL, Reflexes 2+ Psych/Mental Status: Mental status NL, Mood NL Vitals Vitals Vital Signs Date Time Temp Pulse Resp B/P (MAP) Pulse Ox O2 Delivery O2 Flow Rate FiO2 02/21/17 17:45 Room Air 02/21/17 14:28 98.6 84 20 165/101 (122) 97 98.6 Labs Labs Laboratory Tests Test 02/21/17 13:48 02/21/17 14:20 02/21/17 14:28 Bedside Urine HCG, Qualitative Hcg negative (Negative) White Blood Count 10.9 x10^3/uL (4.0-11.0) Red Blood Count 4.54 x10^6/uL (3.50-5.40) Hemoglobin 13.2 g/dL (12.0-15.5) Hematocrit 39.9 % (36.0-47.0) Mean Corpuscular Volume 88 fL (79-100) Mean Corpuscular Hemoglobin 29 pg (25-35) Mean Corpuscular Hemoglobin Concent 33 g/dL (31-37) Red Cell Distribution Width 14.4 % (11.5-14.5) Platelet Count 410 x10^3/uL (140-400) Neutrophils (%) (Auto) 68 % (31-73) Lymphocytes (%) (Auto) 21 % (24-48) Monocytes (%) (Auto) 6 % (0-9) Eosinophils (%) (Auto) 5 % (0-3) Basophils (%) (Auto) 1 % (0-3) Neutrophils # (Auto) 7.4 x10^3uL (1.8-7.7) Lymphocytes # (Auto) 2.3 x10^3/uL (1.0-4.8) Monocytes # (Auto) 0.6 x10^3/uL (0.0-1.1) Eosinophils # (Auto) 0.5 x10^3/uL (0.0-0.7) Basophils # (Auto) 0.1 x10^3/uL (0.0-0.2) Sodium Level 139 mmol/L (136-145) Potassium Level 3.6 mmol/L (3.5-5.1) Chloride Level 101 mmol/L (98-107) Carbon Dioxide Level 28 mmol/L (21-32) Anion Gap 10 (6-14) Blood Urea Nitrogen 6 mg/dL (7-20) Creatinine 0.8 mg/dL (0.6-1.0) Estimated GFR (Cockcroft-Gault) 103.3 BUN/Creatinine Ratio 8 (6-20) Glucose Level 84 mg/dL (70-99) Calcium Level 9.1 mg/dL (8.5-10.1) Total Bilirubin 0.3 mg/dL (0.2-1.0) Aspartate Amino Transf (AST/SGOT) 22 U/L (15-37) Alanine Aminotransferase (ALT/SGPT) 19 U/L (14-59) Alkaline Phosphatase 52 U/L (46-116) Total Protein 8.1 g/dL (6.4-8.2) Albumin 3.3 g/dL (3.4-5.0) Albumin/Globulin Ratio 0.7 (1.0-1.7) Lipase 74 U/L (73-393) Urine Collection Type Unknown Urine Color Yellow Urine Clarity Clear Urine pH 7.5 Urine Specific [place] 1.015 Urine Protein Negative mg/dL (NEG-TRACE) Urine Glucose (UA) Negative mg/dL (NEG) Urine Ketones (Stick) Negative mg/dL (NEG) Urine Blood Large (NEG) Urine Nitrite Negative (NEG) Urine Bilirubin Negative (NEG) Urine Urobilinogen Dipstick 1.0 mg/dL (0.2 mg/dL) Urine Leukocyte Esterase Negative (NEG) Urine RBC 3-5 /HPF (0-2) Urine WBC 1-4 /HPF (0-4) Urine Squamous Epithelial Cells Mod /LPF Urine Bacteria Few /HPF (0-FEW) Urine Mucus Slight /LPF Laboratory Tests Test 02/21/17 13:48 02/21/17 14:20 02/21/17 14:28 Bedside Urine HCG, Qualitative Hcg negative (Negative) White Blood Count 10.9 x10^3/uL (4.0-11.0) Red Blood Count 4.54 x10^6/uL (3.50-5.40) Hemoglobin 13.2 g/dL (12.0-15.5) Hematocrit 39.9 % (36.0-47.0) Mean Corpuscular Volume 88 fL (79-100) Mean Corpuscular Hemoglobin 29 pg (25-35) Mean Corpuscular Hemoglobin Concent 33 g/dL (31-37) Red Cell Distribution Width 14.4 % (11.5-14.5) Platelet Count 410 x10^3/uL (140-400) Neutrophils (%) (Auto) 68 % (31-73) Lymphocytes (%) (Auto) 21 % (24-48) Monocytes (%) (Auto) 6 % (0-9) Eosinophils (%) (Auto) 5 % (0-3) Basophils (%) (Auto) 1 % (0-3) Neutrophils # (Auto) 7.4 x10^3uL (1.8-7.7) Lymphocytes # (Auto) 2.3 x10^3/uL (1.0-4.8) Monocytes # (Auto) 0.6 x10^3/uL (0.0-1.1) Eosinophils # (Auto) 0.5 x10^3/uL (0.0-0.7) Basophils # (Auto) 0.1 x10^3/uL (0.0-0.2) Sodium Level 139 mmol/L (136-145) Potassium Level 3.6 mmol/L (3.5-5.1) Chloride Level 101 mmol/L (98-107) Carbon Dioxide Level 28 mmol/L (21-32) Anion Gap 10 (6-14) Blood Urea Nitrogen 6 mg/dL (7-20) Creatinine 0.8 mg/dL (0.6-1.0) Estimated GFR (Cockcroft-Gault) 103.3 BUN/Creatinine Ratio 8 (6-20) Glucose Level 84 mg/dL (70-99) Calcium Level 9.1 mg/dL (8.5-10.1) Total Bilirubin 0.3 mg/dL (0.2-1.0) Aspartate Amino Transf (AST/SGOT) 22 U/L (15-37) Alanine Aminotransferase (ALT/SGPT) 19 U/L (14-59) Alkaline Phosphatase 52 U/L (46-116) Total Protein 8.1 g/dL (6.4-8.2) Albumin 3.3 g/dL (3.4-5.0) Albumin/Globulin Ratio 0.7 (1.0-1.7) Lipase 74 U/L (73-393) Urine Collection Type Unknown Urine Color Yellow Urine Clarity Clear Urine pH 7.5 Urine Specific [place] 1.015 Urine Protein Negative mg/dL (NEG-TRACE) Urine Glucose (UA) Negative mg/dL (NEG) Urine Ketones (Stick) Negative mg/dL (NEG) Urine Blood Large (NEG) Urine Nitrite Negative (NEG) Urine Bilirubin Negative (NEG) Urine Urobilinogen Dipstick 1.0 mg/dL (0.2 mg/dL) Urine Leukocyte Esterase Negative (NEG) Urine RBC 3-5 /HPF (0-2) Urine WBC 1-4 /HPF (0-4) Urine Squamous Epithelial Cells Mod /LPF Urine Bacteria Few /HPF (0-FEW) Urine Mucus Slight /LPF VTE Prophylaxis Ordered VTE Prophylaxis Devices: Yes VTE Pharmacological Prophylaxi: Yes Assessment/Plan Assessment/Plan 1. Symptomatic acute cholelithiasis 2. Morbid obesity 3. REactive thrombocytosis (410) 4. 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
[2017-02-21] MEDS ORDERED: ALBUTEROL SULFATE 2.5 MG/3 ML NEBU. NEB PRN (19:15)
[2017-02-21] MEDS: fentaNYL PF VIAL 100 MCG/2 ML VIAL IV PRN (20:22)
[2017-02-21] MEDS: IV NORMAL SALINE 1000ML BAG 1,000 ML IV SCH (20:33)
[2017-02-21 21:06] VITALS: BP 153/101
[2017-02-21 23:10] VITALS: BP 127/76
[2017-02-22] VITALS (7 sets, daily range): BP systolic 141–180; BP diastolic 87–115
[2017-02-22] MEDS ORDERED: diphenhydrAMINE 50 MG/ML VIAL IVP PRN (00:45)
[2017-02-22] MEDS ORDERED: diphenhydrAMINE HCL 25 MG CAPSULE PO PRN (00:45)
[2017-02-22] MEDS: fentaNYL PF VIAL 100 MCG/2 ML VIAL IV PRN ×3 (01:17→17:45)
[2017-02-22] MEDS: HYDROmorphone 2 MG/ML VIAL IV/SQ PRN ×2 (03:55→06:11)
[2017-02-22] MEDS: IV NORMAL SALINE 1000ML BAG 1,000 ML IV SCH ×2 (03:57→11:46)
[2017-02-22] MEDS: PANTOPRAZOLE 40 MG TABLET.DR. PO SCH (07:00)
[2017-02-22] MEDS: HYDROmorphone 2 MG/ML VIAL IV PRN ×3 (10:55→19:56)
[2017-02-22] MEDS: traMADol 50 MG TABLET PO PRN ×2 (16:26→23:21)
--- NOTE | 2017-02-22 19:21 | PDOC ---
PROGRESS NOTES Chief Complaint Chief Complaint 1. Symptomatic acute cholelithiasis 2. Morbid obesity 3. Reactive thrombocytosis (410) 4. Asthma on prn albuterol - chronic stable 5. 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 no rebound, no guarding, NABS) Extremities: No clubbing, No cyanosis, No edema, Normal pulses, No tenderness/ swelling Skin: No rashes, No breakdown, No significant lesion Review of Systems Review of Systems co weakness co pain Assessment and Plan Assessmemt and Plan Problems Medical Problems: (1) Abdominal pain Status: Acute 1. Symptomatic acute cholelithiasis 2. Morbid obesity 3. REactive thrombocytosis (410) 4. Asthma on prn albuterol - chronic stable 5. 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 Resume prn albuterol Recheck labs Problems: Comment Review of Relevant I have reviewed the following items shweta (where applicable) has been applied. Labs Laboratory Tests Test 02/21/17 13:48 02/21/17 14:20 02/21/17 14:28 Bedside Urine HCG, Qualitative Hcg negative (Negative) White Blood Count 10.9 x10^3/uL (4.0-11.0) Red Blood Count 4.54 x10^6/uL (3.50-5.40) Hemoglobin 13.2 g/dL (12.0-15.5) Hematocrit 39.9 % (36.0-47.0) Mean Corpuscular Volume 88 fL (79-100) Mean Corpuscular Hemoglobin 29 pg (25-35) Mean Corpuscular Hemoglobin Concent 33 g/dL (31-37) Red Cell Distribution Width 14.4 % (11.5-14.5) Platelet Count 410 x10^3/uL (140-400) Neutrophils (%) (Auto) 68 % (31-73) Lymphocytes (%) (Auto) 21 % (24-48) Monocytes (%) (Auto) 6 % (0-9) Eosinophils (%) (Auto) 5 % (0-3) Basophils (%) (Auto) 1 % (0-3) Neutrophils # (Auto) 7.4 x10^3uL (1.8-7.7) Lymphocytes # (Auto) 2.3 x10^3/uL (1.0-4.8) Monocytes # (Auto) 0.6 x10^3/uL (0.0-1.1) Eosinophils # (Auto) 0.5 x10^3/uL (0.0-0.7) Basophils # (Auto) 0.1 x10^3/uL (0.0-0.2) Sodium Level 139 mmol/L (136-145) Potassium Level 3.6 mmol/L (3.5-5.1) Chloride Level 101 mmol/L (98-107) Carbon Dioxide Level 28 mmol/L (21-32) Anion Gap 10 (6-14) Blood Urea Nitrogen 6 mg/dL (7-20) Creatinine 0.8 mg/dL (0.6-1.0) Estimated GFR (Cockcroft-Gault) 103.3 BUN/Creatinine Ratio 8 (6-20) Glucose Level 84 mg/dL (70-99) Calcium Level 9.1 mg/dL (8.5-10.1) Total Bilirubin 0.3 mg/dL (0.2-1.0) Aspartate Amino Transf (AST/SGOT) 22 U/L (15-37) Alanine Aminotransferase (ALT/SGPT) 19 U/L (14-59) Alkaline Phosphatase 52 U/L (46-116) Total Protein 8.1 g/dL (6.4-8.2) Albumin 3.3 g/dL (3.4-5.0) Albumin/Globulin Ratio 0.7 (1.0-1.7) Lipase 74 U/L (73-393) Urine Collection Type Unknown Urine Color Yellow Urine Clarity Clear Urine pH 7.5 Urine Specific [place] 1.015 Urine Protein Negative mg/dL (NEG-TRACE) Urine Glucose (UA) Negative mg/dL (NEG) Urine Ketones (Stick) Negative mg/dL (NEG) Urine Blood Large (NEG) Urine Nitrite Negative (NEG) Urine Bilirubin Negative (NEG) Urine Urobilinogen Dipstick 1.0 mg/dL (0.2 mg/dL) Urine Leukocyte Esterase Negative (NEG) Urine RBC 3-5 /HPF (0-2) Urine WBC 1-4 /HPF (0-4) Urine Squamous Epithelial Cells Mod /LPF Urine Bacteria Few /HPF (0-FEW) Urine Mucus Slight /LPF Medications Current Medications Hydromorphone HCl (Dilaudid) 1 mg PRN Q15MIN PRN IV/SQ PAIN GREATER THAN 3/10 Last administered on 02/21/17 17:45; Start 02/21/17 at 15:15; Stop 02/21/17 at 21:27; Status DC Sodium Chloride 1,000 ml @ 1,000 mls/hr Q1H IV Last administered on 02/21/17 15:35; Start 02/21/17 at 15:04; Stop 02/21/17 at 16:03; Status DC Sodium Chloride (Normal Saline Flush) 10 ml QSHIFT PRN IV AFTER MEDS AND BLOOD DRAWS; Start 02/21/17 at 15:15 Ondansetron HCl (Zofran) 4 mg 1X ONCE IV Last administered on 02/21/17 15:35 ; Start 02/21/17 at 15:15; Stop 02/21/17 at 15:16; Status DC Ondansetron HCl (Zofran) 4 mg PRN Q8HRS PRN IV NAUSEA/VOMITING; Start 02/21/17 at 18:45; Stop 02/21/17 at 19:04; Status DC Fentanyl Citrate (Fentanyl 2ml Vial) 50 mcg PRN Q1HR PRN IV PAIN; Start at 18:45; Stop 02/21/17 at 19:04; Status DC Sodium Chloride 1,000 ml @ 120 mls/hr Q8H20M IV Last administered on 11:46; Start 02/21/17 at 18:35; Stop 02/22/17 at 18:34; Status DC Fentanyl Citrate (Fentanyl 2ml Vial) 50 mcg PRN Q2HR PRN IV PAIN Last administered on 02/22/17 17:45; Start 02/21/17 at 19:02; Stop 02/22/17 at 19:01 ; Status DC Ondansetron HCl (Zofran) 4 mg PRN Q6HRS PRN IV NAUSEA/VOMITING Last administered on 02/22/17 01:17; Start 02/21/17 at 19:02; Stop 02/22/17 at 19:01 ; Status DC Pantoprazole Sodium (Protonix) 40 mg 0700 PO ; Start 02/22/17 at 07:00 Tramadol HCl (Ultram) 50 mg PRN Q6HRS PRN PO PAIN Last administered on 16:26; Start 02/21/17 at 19:15 Albuterol Sulfate (Ventolin Neb Soln) 2.5 mg PRN Q2HRS PRN NEB soa; Start 02/21 at 19:15 Hydromorphone HCl (Dilaudid) 1 mg PRN Q2HRS PRN IV/SQ PAIN GREATER THAN 3/10 Last administered on 02/22/17 06:11; Start 02/21/17 at 21:30; Stop 02/22/17 at 10:50; Status DC Diphenhydramine HCl (Benadryl) 25 mg PRN Q6HRS PRN IVP ITCHING Last administered on 02/22/17 01:12; Start 02/22/17 at 00:45 Diphenhydramine HCl (Benadryl) 25 mg PRN Q6HRS PRN PO ITCHING; Start 02/22/17 at 00:45 Hydromorphone HCl (Dilaudid) 1 mg PRN Q4HRS PRN IV PAIN Last administered on 15:29; Start 02/22/17 at 11:00 Ondansetron HCl (Zofran) 4 mg PRN Q6HRS PRN IV NAUSEA/VOMITING; Start 02/23/17 at 07:00; Stop 02/24/17 at 06:59 Fentanyl Citrate (Fentanyl 2ml Vial) 25 mcg PRN Q5MIN PRN IV MILD PAIN; Start 02/23/17 at 07:00; Stop 02/24/17 at 06:59 Fentanyl Citrate (Fentanyl 2ml Vial) 50 mcg PRN Q5MIN PRN IV MODERATE PAIN; Start 02/23/17 at 07:00; Stop 02/24/17 at 06:59 Morphine Sulfate 1 mg PRN Q10MIN PRN IV SEVERE PAIN; Start 02/23/17 at 07:00; Stop 02/24/17 at 06:59 Ringer's Solution 1,000 ml @ 30 mls/hr Q24H IV ; Start 02/23/17 at 07:00; Stop 02/23/17 at 18:59 Lidocaine HCl 2 ml PRN 1X PRN ID PRIOR TO IV START; Start 02/23/17 at 07:00; Stop 02/24/17 at 06:59 Hydromorphone HCl (Dilaudid) 0.5 mg PRN Q10MIN PRN IV SEV PAIN, Second choice; Start 02/23/17 at 07:00; Stop 02/24/17 at 06:59 Prochlorperazine Edisylate (Compazine) 5 mg PACU PRN PRN IV NAUSEA, MRX1; Start 02/23/17 at 07:00; Stop 02/24/17 at 06:59 Active Scripts Active Tramadol-Acetaminophn 37.5-325 (Tramadol Hcl/Acetaminophen) 1 Each Tablet 1 Tab PO Q6H Anaprox Ds (Naproxen Sodium) 550 Mg Tablet 550 Mg PO BID Benzonatate 200 Mg Capsule 1 Cap PO TID Ultram (Tramadol Hcl) 50 Mg Tablet 50 Mg PO Q6H PRN Penicillin V Potassium 500 Mg Tablet 1 Tab PO TID Protonix (Pantoprazole Sodium) 40 Mg Tablet.dr 40 Mg PO DAILY Vitals/I & O Vital Sign - Last 24 Hours 02/21/17 02/21/17 02/21/17 02/21/17 19:52 20:10 20:22 21:06 Temp 97.9 97.9 Pulse 82 Resp 18 B/P (MAP) 153/101 (118) Pulse Ox 99 O2 Delivery Room Air Room Air Room Air Room Air 02/21/17 02/21/17 02/21/17 02/22/17 21:37 23:10 23:39 01:17 Temp 97.9 97.9 Pulse 82 Resp 18 B/P (MAP) 127/76 (93) Pulse Ox 94 O2 Delivery Room Air Room Air Room Air Room Air 02/22/17 02/22/17 02/22/17 02/22/17 03:18 03:55 06:11 06:11 Temp 97.9 97.9 Pulse 91 Resp 18 B/P (MAP) 141/87 (105) Pulse Ox 97 O2 Delivery Room Air Room Air Room Air Room Air 02/22/17 02/22/17 02/22/17 02/22/17 07:00 07:38 08:30 08:45 Temp 98.5 98.5 Pulse 91 Resp 22 16 B/P (MAP) 141/92 (108) Pulse Ox 95 99 O2 Delivery Room Air Room Air Room Air Room Air 02/22/17 02/22/17 02/22/17 02/22/17 10:55 11:00 15:00 15:29 Temp 98.5 98.6 98.5 98.6 Pulse 92 95 Resp 16 20 20 16 B/P (MAP) 174/113 (133) 156/101 (119) Pulse Ox 97 96 O2 Delivery Room Air Room Air Room Air Room Air 02/22/17 02/22/17 02/22/17 02/22/17 15:45 15:59 16:26 17:26 Pulse 96 Resp 16 16 16 16 B/P (MAP) 158/94 (115) O2 Delivery Room Air Room Air Room Air Room Air 02/22/17 02/22/17 17:45 18:15 Resp 16 16 O2 Delivery Room Air Room Air Intake and Output 02/21/17 02/21/17 02/22/17 15:00 23:00 07:00 Intake Total 1180 ml 895 ml Balance 1180 ml 895 ml ASIA LANDIS III DO Feb 22, 2017 19:21
[2017-02-22] MEDS ORDERED: hydrALAZINE 20 MG/ML VIAL. IVP PRN (23:15)
[2017-02-23] VITALS (13 sets, daily range): BP systolic 144–167; BP diastolic 84–112
[2017-02-23] MEDS: HYDROmorphone 2 MG/ML VIAL IV PRN ×4 (01:42→20:31)
--- NOTE | 2017-02-23 04:09 | ACF ---
Admission Forms Criteria GALLBLADDER OR BILE DUCT INFLAMMATION OR STONE Clinical Indications for Admission to Inpatient Care ( Place 'X' for any and all applicable criteria): Admission is indicated for patients with ANY ONE of the following(1)(2)(3)(4)(5) : [ ]I. Acute cholecystitis as indicated by ALL of the following: [ ]a) Right upper quadrant pain, mass, or tenderness [ ]b) Systemic signs of inflammation indicated by ANY ONE of the following: [ ]i) Fever [ ]ii) C-reactive protein level greater than 10 mg/L (95 nmol/L) [ ]iii) White blood cell count greater than 10,000/mm3 (10 x109/L) or less than 4000/mm3 (4 x109/L) [X]II. Inpatient admission required rather than observation care (Also use Gallbladder or Bile Duct Inflammation or Stone: Observation Care as appropriate) because of ANY ONE of the following: [ ]a) Common bile duct obstruction diagnosed [ ]b) Vomiting that is severe or persistent [X]c) Severe pain requiring acute inpatient management [ ]d) Signs of intestinal obstruction or peritonitis [A] [ ]e) Severe electrolyte abnormalities requiring inpatient care [ ]f) Absent bowel sounds with complete ileus(8) [ ]g) Hemodynamic instability [ ]h) High fever or infection requiring inpatient admission as indicated by ANY ONE of the following (9): [ ]1) Appropriate outpatient or observation care antimicrobial Treatment. unavailable, not effective, or not feasible [ ]2) Temperature greater than 104.9 degrees F (40.5 degrees C) (oral) [ ]3) Temperature greater than 103.1 degrees F (39.5 degrees C) (oral) or less than 96.8 degrees F (36 degrees C) (rectal) that does not respond to all emergency treatment measures [ ]4) Documented bacteremia [ ]i) IV fluid to replace significant ongoing losses (greater than 3 L/m2 per day) [ ]j) Percutaneous or open drainage (eg, abscess, biliary tract) procedures [ ]k) Immediate inpatient surgery [ ]l) Other condition, treatment or monitoring requiring inpatient admission [ ]III. Acute cholangitis as indicated by ALL of the following(9)(10): [ ]a) Systemic signs of inflammation indicated by ANY ONE of the following: [ ]i) Fever [ ]ii) C-reactive protein level greater than 10 mg/L (95 nmol /L) [ ]iii) White blood cell count greater than 10,000/mm3 (10 x109/L) or less than 4000/mm3 (4 x109/L) [ ]b) Evidence of common bile duct disease indicated by ANY ONE of the following: [ ]i) Total serum bilirubin level greater than or equal to 2 mg/dL (34 micromoles/L) [ ]ii) Liver function test (alkaline phosphatase (ALP), r- glutamyltransferase (GGT), aspartate aminotransferase (AST), or alanine aminotransferase (ALT)) greater than 1.5 times the upper limit of normal[B] [ ]iii) Hepatobiliary imaging showing biliary dilatation or evidence of etiology (eg, stricture, stone, previously placed stent) Extended stay beyond goal length of stay may be needed for (1)(2)): [ ]a) Bacteremia or Hemodynamic instability [ ]b) Cholecystectomy [ ]c) Other surgical procedure(24) [ ]d) Percutaneous or endoscopic ultrasound-guided cholecystostomy The original [facility] content created by [facility] has been revised. The portions of the content which have been revised are identified through the use of italic text or in bold, and [facility] has neither reviewed nor approved the modified material. All other unmodified content is copyright [facility]. Please see references footnoted in the original [facility] edition 2016 Admission Criteria Met?: Yes ERMELINDA WORKMAN Feb 23, 2017 04:09
[2017-02-23] MEDS ORDERED: HYDROmorphone 2 MG/ML VIAL IV PRN (07:00)
[2017-02-23] MEDS ORDERED: MORPHINE SULFATE 2 MG/ML DISP.SYRIN. IV PRN (07:00)
[2017-02-23] MEDS ORDERED: fentaNYL PF VIAL 100 MCG/2 ML VIAL IV PRN (07:00)
[2017-02-23] MEDS ORDERED: PROCHLORPERAZINE 10 MG/2 ML VIAL. IV PRN (07:00)
[2017-02-23] MEDS ORDERED: ONDANSETRON PF 4 MG/2 ML VIAL. IV PRN (07:00)
[2017-02-23] MEDS: PANTOPRAZOLE 40 MG TABLET.DR. PO SCH ×2 (07:00→07:10)
[2017-02-23] MEDS ORDERED: LIDOCAINE 1% 1 ML SYRINGE. ID PRN (07:00)
[2017-02-23] MEDS ORDERED: BUPIVACAINE-EPI 0.25%-1:200000 50 ML VIAL. ONE (07:15)
--- NOTE | 2017-02-23 07:44 | PDOC2 ---
CONSULT Date of Consult Date of Consult DATE: 02/23/17 TIME: 07:37 Reason for Consult Reason for Consult: Abd pain Referring Physician Referring Physician: Matt Identification/Chief Complaint Chief Complaint Abd pain Problems: Source Source: Patient History of Present Illness Reason for Visit: 26 yo female with several episodes of abdominal pain, seen last week in the hospital with symptomatic cholelithiasis but had to leave due to family issues. Returned yesterday with similar problems. Past Medical History Cardiovascular: No pertinent hx Pulmonary: No pertinent hx GI: No pertinent hx Heme/Onc: No pertinent hx Hepatobiliary: No pertinent hx Psych: No pertinent hx Rheumatologic: No pertinent hx Infectious disease: No pertinent hx ENT: No pertinent hx Renal/: No pertinent hx Endocrine: No pertinent hx Dermatology: No pertinent hx Past Surgical History Past Surgical History: Family History Family History: Hypertension Social History No ALCOHOL: rare Drugs: None Lives: with Family Current Problem List Problem List Problems Medical Problems: (1) Abdominal pain Status: Acute Current Medications Current Medications Current Medications Hydromorphone HCl (Dilaudid) 1 mg PRN Q15MIN PRN IV/SQ PAIN GREATER THAN 3/10 Last administered on 02/21/17 17:45; Start 02/21/17 at 15:15; Stop 02/21/17 at 21:27; Status DC Sodium Chloride 1,000 ml @ 1,000 mls/hr Q1H IV Last administered on 02/21/17 15:35; Start 02/21/17 at 15:04; Stop 02/21/17 at 16:03; Status DC Sodium Chloride (Normal Saline Flush) 10 ml QSHIFT PRN IV AFTER MEDS AND BLOOD DRAWS; Start 02/21/17 at 15:15 Ondansetron HCl (Zofran) 4 mg 1X ONCE IV Last administered on 02/21/17t 15:35 ; Start 02/21/17 at 15:15; Stop 02/21/17 at 15:16; Status DC Ondansetron HCl (Zofran) 4 mg PRN Q8HRS PRN IV NAUSEA/VOMITING; Start 02/21/17 at 18:45; Stop 02/21/17 at 19:04; Status DC Fentanyl Citrate (Fentanyl 2ml Vial) 50 mcg PRN Q1HR PRN IV PAIN; Start at 18:45; Stop 02/21/17 at 19:04; Status DC Sodium Chloride 1,000 ml @ 120 mls/hr Q8H20M IV Last administered on 11:46; Start 02/21/17 at 18:35; Stop 02/22/17 at 18:34; Status DC Fentanyl Citrate (Fentanyl 2ml Vial) 50 mcg PRN Q2HR PRN IV PAIN Last administered on 02/22/17 17:45; Start 02/21/17 at 19:02; Stop 02/22/17 at 19:01 ; Status DC Ondansetron HCl (Zofran) 4 mg PRN Q6HRS PRN IV NAUSEA/VOMITING Last administered on 02/22/17 01:17; Start 02/21/17 at 19:02; Stop 02/22/17 at 19:01 ; Status DC Pantoprazole Sodium (Protonix) 40 mg 0700 PO ; Start 02/22/17 at 07:00 Tramadol HCl (Ultram) 50 mg PRN Q6HRS PRN PO PAIN Last administered on 23:21; Start 02/21/17 at 19:15 Albuterol Sulfate (Ventolin Neb Soln) 2.5 mg PRN Q2HRS PRN NEB soa; Start 02/21 at 19:15 Hydromorphone HCl (Dilaudid) 1 mg PRN Q2HRS PRN IV/SQ PAIN GREATER THAN 3/10 Last administered on 02/22/17 06:11; Start 02/21/17 at 21:30; Stop 02/22/17 at 10:50; Status DC Diphenhydramine HCl (Benadryl) 25 mg PRN Q6HRS PRN IVP ITCHING Last administered on 02/22/17 01:12; Start 02/22/17 at 00:45 Diphenhydramine HCl (Benadryl) 25 mg PRN Q6HRS PRN PO ITCHING; Start 02/22/17 at 00:45 Hydromorphone HCl (Dilaudid) 1 mg PRN Q4HRS PRN IV PAIN Last administered on 01:42; Start 02/22/17 at 11:00 Ondansetron HCl (Zofran) 4 mg PRN Q6HRS PRN IV NAUSEA/VOMITING; Start 02/23/17 at 07:00; Stop 02/24/17 at 06:59 Fentanyl Citrate (Fentanyl 2ml Vial) 25 mcg PRN Q5MIN PRN IV MILD PAIN; Start 02/23/17 at 07:00; Stop 02/24/17 at 06:59 Fentanyl Citrate (Fentanyl 2ml Vial) 50 mcg PRN Q5MIN PRN IV MODERATE PAIN; Start 02/23/17 at 07:00; Stop 02/24/17 at 06:59 Morphine Sulfate 1 mg PRN Q10MIN PRN IV SEVERE PAIN; Start 02/23/17 at 07:00; Stop 02/24/17 at 06:59 Ringer's Solution 1,000 ml @ 30 mls/hr Q24H IV ; Start 02/23/17 at 07:00; Stop 02/23/17 at 18:59 Lidocaine HCl 2 ml PRN 1X PRN ID PRIOR TO IV START; Start 02/23/17 at 07:00; Stop 02/24/17 at 06:59 Hydromorphone HCl (Dilaudid) 0.5 mg PRN Q10MIN PRN IV SEV PAIN, Second choice; Start 02/23/17 at 07:00; Stop 02/24/17 at 06:59 Prochlorperazine Edisylate (Compazine) 5 mg PACU PRN PRN IV NAUSEA, MRX1; Start 02/23/17 at 07:00; Stop 02/24/17 at 06:59 Hydralazine HCl (Apresoline) 10 mg PRN Q4HRS PRN IVP ELEVATED BP, SEE COMMENTS Last administered on 02/22/17t 23:24; Start 02/22/17 at 23:15 Bupivacaine HCl/ Epinephrine Bitart (Marcaine-Epi 0.25%-1:[id number]) 50 ml STK-MED ONCE .ROUTE ; Start 02/23/17 at 07:15; Stop 02/23/17 at 07:16; Status DC Active Scripts Active Tramadol-Acetaminophn 37.5-325 (Tramadol Hcl/Acetaminophen) 1 Each Tablet 1 Tab PO Q6H Anaprox Ds (Naproxen Sodium) 550 Mg Tablet 550 Mg PO BID Benzonatate 200 Mg Capsule 1 Cap PO TID Ultram (Tramadol Hcl) 50 Mg Tablet 50 Mg PO Q6H PRN Penicillin V Potassium 500 Mg Tablet 1 Tab PO TID Protonix (Pantoprazole Sodium) 40 Mg Tablet.dr 40 Mg PO DAILY Allergies Allergies: Coded Allergies: No Known Drug Allergies (Unverified , 08/05/13) ROS Gastrointestinal: Yes Nausea, Yes Vomiting, Yes Abdominal Pain Physical Exam General: Alert, Oriented X3, Cooperative, mild distress HEENT: Atraumatic, PERRLA, EOMI Lungs: Clear to auscultation, Normal air movement Heart: Regular rate, No murmurs Abdomen: Normal bowel sounds, Soft, Other (ruq TTP) Extremities: No edema Skin: No significant lesion Psych/Mental Status: Mental status NL Vitals VITALS Vital Signs Date Time Temp Pulse Resp B/P (MAP) Pulse Ox O2 Delivery O2 Flow Rate FiO2 02/23/17 03:08 98.6 97 18 148/90 (109) 97 Room Air 98.6 Labs Labs Laboratory Tests Test 02/21/17 13:48 02/21/17 14:20 02/21/17 14:28 Bedside Urine HCG, Qualitative Hcg negative (Negative) White Blood Count 10.9 x10^3/uL (4.0-11.0) Red Blood Count 4.54 x10^6/uL (3.50-5.40) Hemoglobin 13.2 g/dL (12.0-15.5) Hematocrit 39.9 % (36.0-47.0) Mean Corpuscular Volume 88 fL (79-100) Mean Corpuscular Hemoglobin 29 pg (25-35) Mean Corpuscular Hemoglobin Concent 33 g/dL (31-37) Red Cell Distribution Width 14.4 % (11.5-14.5) Platelet Count 410 x10^3/uL (140-400) Neutrophils (%) (Auto) 68 % (31-73) Lymphocytes (%) (Auto) 21 % (24-48) Monocytes (%) (Auto) 6 % (0-9) Eosinophils (%) (Auto) 5 % (0-3) Basophils (%) (Auto) 1 % (0-3) Neutrophils # (Auto) 7.4 x10^3uL (1.8-7.7) Lymphocytes # (Auto) 2.3 x10^3/uL (1.0-4.8) Monocytes # (Auto) 0.6 x10^3/uL (0.0-1.1) Eosinophils # (Auto) 0.5 x10^3/uL (0.0-0.7) Basophils # (Auto) 0.1 x10^3/uL (0.0-0.2) Sodium Level 139 mmol/L (136-145) Potassium Level 3.6 mmol/L (3.5-5.1) Chloride Level 101 mmol/L (98-107) Carbon Dioxide Level 28 mmol/L (21-32) Anion Gap 10 (6-14) Blood Urea Nitrogen 6 mg/dL (7-20) Creatinine 0.8 mg/dL (0.6-1.0) Estimated GFR (Cockcroft-Gault) 103.3 BUN/Creatinine Ratio 8 (6-20) Glucose Level 84 mg/dL (70-99) Calcium Level 9.1 mg/dL (8.5-10.1) Total Bilirubin 0.3 mg/dL (0.2-1.0) Aspartate Amino Transf (AST/SGOT) 22 U/L (15-37) Alanine Aminotransferase (ALT/SGPT) 19 U/L (14-59) Alkaline Phosphatase 52 U/L (46-116) Total Protein 8.1 g/dL (6.4-8.2) Albumin 3.3 g/dL (3.4-5.0) Albumin/Globulin Ratio 0.7 (1.0-1.7) Lipase 74 U/L (73-393) Urine Collection Type Unknown Urine Color Yellow Urine Clarity Clear Urine pH 7.5 Urine Specific [place] 1.015 Urine Protein Negative mg/dL (NEG-TRACE) Urine Glucose (UA) Negative mg/dL (NEG) Urine Ketones (Stick) Negative mg/dL (NEG) Urine Blood Large (NEG) Urine Nitrite Negative (NEG) Urine Bilirubin Negative (NEG) Urine Urobilinogen Dipstick 1.0 mg/dL (0.2 mg/dL) Urine Leukocyte Esterase Negative (NEG) Urine RBC 3-5 /HPF (0-2) Urine WBC 1-4 /HPF (0-4) Urine Squamous Epithelial Cells Mod /LPF Urine Bacteria Few /HPF (0-FEW) Urine Mucus Slight /LPF Images Images U/S showing gallstones with mildly thickened GB wall Assessment/Plan Assessment/Plan Symptomatic cholelithiasis Plan L/S Cholecystectomy today. MARIANN MICHEL MD Feb 23, 2017 07:44
[2017-02-23] MEDS ORDERED: fentaNYL PF VIAL 100 MCG/2 ML VIAL ONE ×3 (09:39→10:45)
[2017-02-23] MEDS: IV RINGERS,LACTATED 1000ML 1,000 ML IV SCH ×2 (09:40→12:24)
[2017-02-23] MEDS: fentaNYL PF VIAL 100 MCG/2 ML VIAL IV PRN ×4 (09:45→12:41)
[2017-02-23] MEDS ORDERED: ROCURONIUM 50 MG/5 ML VIAL. ONE (09:46)
[2017-02-23] MEDS ORDERED: DEXAMETHASONE SOD PHOS 20 MG/5 ML VIAL. ONE (09:46)
[2017-02-23] MEDS ORDERED: NEOSTIGMINE METHYLSULFATE 5 MG/5 ML SYRINGE. ONE (09:46)
[2017-02-23] MEDS ORDERED: PROPOFOL 20 ML IV ONE ×2 (09:46→11:01)
[2017-02-23] MEDS ORDERED: GLYCOPYRROLATE 1 MG/5 ML VIAL. ONE (09:46)
[2017-02-23] MEDS ORDERED: MIDAZOLAM HCL/PF 2 MG/2 ML VIAL. ONE (09:46)
[2017-02-23] MEDS ORDERED: ONDANSETRON PF 4 MG/2 ML VIAL. ONE (09:46)
[2017-02-23] MEDS ORDERED: LIDOCAINE 2% PF Vial for OR 5 ML VIAL. ONE (09:46)
[2017-02-23] MEDS ORDERED: SURGICEL HEMOSTAT 4X8 EACH. ONE (10:10)
[2017-02-23] MEDS ORDERED: ESMOLOL 100 MG/10 ML VIAL. IV ONE (10:59)
[2017-02-23] MEDS ORDERED: PHENYLEPHRINE in 0.9% NACL PF 1 MG/10 ML DISP.SYRIN. IV ONE (11:17)
[2017-02-23] MEDS ORDERED: ceFAZolin 2GM PREMIX 2 GM/50 ML BAG IV ONE (11:30)
[2017-02-23] MEDS ORDERED: DESFLURANE 61 TO 120 MINUTES IH ONE (11:50)
[2017-02-23] MEDS ORDERED: DESFLURANE > 120 MINUTES IH ONE (11:50)
--- NOTE | 2017-02-23 11:55 | PDOC4 ---
Operative Note Operative Note Date: 03/03/2017 Preoperative diagnosis: Cholecystitis cholelithiasis Postoperative diagnosis: Same Procedure: Laparoscopic cholecystectomy Surgeon: Escobar Dictation: Patient is a 26-year-old female is admitted to the hospital with right upper quadrant abdominal pain nausea and ultrasound showing gallstones with a mildly thickened gallbladder wall. The procedure of laparoscopic cholecystectomy was explained to the patient in detail was benefits were also discussed including bleeding infection injury to intra-abdominal contents possibly necessitating further or open operations. The patient seemed understanding gave both verbal and written consent to have the procedure performed. Patient was taken to the operating room placed in the supine position general anesthesia was initiated once the patient was asleep and intubated her abdomen was prepped and draped usual sterile fashion using ChloraPrep. An area just above the umbilicus was injected with quarter percent Marcaine with epinephrine and incision was made with 11 blade scalpel and a varies needle was placed within the abdomen. A pneumoperitoneum was achieved once this complete a 11 mm port was placed in fibromata camera was placed within the abdomen abdomen was inspected did show quite a few adhesions from the omentum to the gallbladder. At this point 3, 5mm ports were placed under direct visualization one in the epigastrium and 2 in the right upper quadrant the dome of the gallbladder was grasped retracted cephalad adherent tissues from the omentum to the gallbladder were taken down with blunt dissection the infundibulum and was then grasped retracted laterally exposing the triangle. There is quite a bit of inflammation within the triangle with the triangle structures were exposed cystic duct was doubly clipped as well as the cystic artery were transected and the gallbladder was taken off the liver with hook electrocautery. The gallbladder was removed from the umbilicus and the right upper quadrant was irrigated and suctioned dry, hemostasis was deemed to be appropriate and the pneumoperitoneum was reduced. All ports were removed the fascial defect at the umbilicus closed [id number] Vicryl suture and the skin was were approximated all port sites for septic or Monocryl Mastisol Steri- Strips and Band-Aids were applied as dressings. Patient was awakened and extubated in the operating room taken to recovery in stable condition all sponge instrument counts were stated as correct. Estimated blood loss 20 mL MARIANN MICHEL MD Feb 23, 2017 11:55
[2017-02-23] MEDS ORDERED: oxyCODONE/APAP 5/325 1 TAB TABLET PO PRN (12:00)
--- NOTE | 2017-02-23 15:24 | PDOC ---
PROGRESS NOTES Chief Complaint Chief Complaint 1. Symptomatic acute cholelithiasis 2. Morbid obesity, BMI 52 3. Reactive thrombocytosis 4. Asthma on prn albuterol - chronic stable 5. MIld PCM History of Present Illness History of Present Illness seen post-op pain, mild distress Vitals Vitals Vital Signs Date Time Temp Pulse Resp B/P (MAP) Pulse Ox O2 Delivery O2 Flow Rate FiO2 02/23/17 14:34 18 96 Nasal Cannula 2.0 02/23/17 12:44 78 156/85 02/23/17 11:59 97.6 97.6 Physical Exam General: Alert, Oriented X3, Cooperative, mild distress Heart: Regular rate, No murmurs Lungs: Clear Abdomen: Normal bowel sounds, Soft, Other (ruq TTP) Extremities: No clubbing, No edema Skin: No rashes, No significant lesion Review of Systems Review of Systems moderate pain post-op pain is soreness, a little better with IV pain meds on freq vitals Assessment and Plan Assessmemt and Plan Problems Medical Problems: (1) Abdominal pain Status: Acute Problems: Comment Review of Relevant I have reviewed the following items shweta (where applicable) has been applied. Medications Current Medications Hydromorphone HCl (Dilaudid) 1 mg PRN Q15MIN PRN IV/SQ PAIN GREATER THAN 3/10 Last administered on 02/21/17 17:45; Start 02/21/17 at 15:15; Stop 02/21/17 at 21:27; Status DC Sodium Chloride 1,000 ml @ 1,000 mls/hr Q1H IV Last administered on 02/21/17 15:35; Start 02/21/17 at 15:04; Stop 02/21/17 at 16:03; Status DC Sodium Chloride (Normal Saline Flush) 10 ml QSHIFT PRN IV AFTER MEDS AND BLOOD DRAWS Last administered on 02/23/17 07:55; Start 02/21/17 at 15:15 Ondansetron HCl (Zofran) 4 mg 1X ONCE IV Last administered on 02/21/17 15:35 ; Start 02/21/17 at 15:15; Stop 02/21/17 at 15:16; Status DC Ondansetron HCl (Zofran) 4 mg PRN Q8HRS PRN IV NAUSEA/VOMITING; Start 02/21/17 at 18:45; Stop 02/21/17 at 19:04; Status DC Fentanyl Citrate (Fentanyl 2ml Vial) 50 mcg PRN Q1HR PRN IV PAIN; Start at 18:45; Stop 02/21/17 at 19:04; Status DC Sodium Chloride 1,000 ml @ 120 mls/hr Q8H20M IV Last administered on 11:46; Start 02/21/17 at 18:35; Stop 02/22/17 at 18:34; Status DC Fentanyl Citrate (Fentanyl 2ml Vial) 50 mcg PRN Q2HR PRN IV PAIN Last administered on 02/22/17 17:45; Start 02/21/17 at 19:02; Stop 02/22/17 at 19:01 ; Status DC Ondansetron HCl (Zofran) 4 mg PRN Q6HRS PRN IV NAUSEA/VOMITING Last administered on 02/22/17 01:17; Start 02/21/17 at 19:02; Stop 02/22/17 at 19:01 ; Status DC Pantoprazole Sodium (Protonix) 40 mg 0700 PO ; Start 02/22/17 at 07:00 Tramadol HCl (Ultram) 50 mg PRN Q6HRS PRN PO MILD PAIN Last administered on 23:21; Start 02/21/17 at 19:15 Albuterol Sulfate (Ventolin Neb Soln) 2.5 mg PRN Q2HRS PRN NEB soa; Start 02/21 at 19:15 Hydromorphone HCl (Dilaudid) 1 mg PRN Q2HRS PRN IV/SQ PAIN GREATER THAN 3/10 Last administered on 02/22/17 06:11; Start 02/21/17 at 21:30; Stop 02/22/17 at 10:50; Status DC Diphenhydramine HCl (Benadryl) 25 mg PRN Q6HRS PRN IVP ITCHING Last administered on 02/22/17 01:12; Start 02/22/17 at 00:45 Diphenhydramine HCl (Benadryl) 25 mg PRN Q6HRS PRN PO ITCHING; Start 02/22/17 at 00:45 Hydromorphone HCl (Dilaudid) 1 mg PRN Q4HRS PRN IV PAIN Last administered on 14:04; Start 02/22/17 at 11:00 Ondansetron HCl (Zofran) 4 mg PRN Q6HRS PRN IV NAUSEA/VOMITING; Start 02/23/17 at 07:00; Stop 02/24/17 at 06:59 Fentanyl Citrate (Fentanyl 2ml Vial) 25 mcg PRN Q5MIN PRN IV MILD PAIN; Start 02/23/17 at 07:00; Stop 02/24/17 at 06:59 Fentanyl Citrate (Fentanyl 2ml Vial) 50 mcg PRN Q5MIN PRN IV MODERATE PAIN Last administered on 02/23/17 12:41; Start 02/23/17 at 07:00; Stop 02/24/17 at 06:59 Morphine Sulfate 1 mg PRN Q10MIN PRN IV SEVERE PAIN; Start 02/23/17 at 07:00; Stop 02/24/17 at 06:59 Ringer's Solution 1,000 ml @ 30 mls/hr Q24H IV Last administered on 02/23/17 12:24; Start 02/23/17 at 07:00; Stop 02/23/17 at 18:59 Lidocaine HCl 2 ml PRN 1X PRN ID PRIOR TO IV START; Start 02/23/17 at 07:00; Stop 02/24/17 at 06:59 Hydromorphone HCl (Dilaudid) 0.5 mg PRN Q10MIN PRN IV SEV PAIN, Second choice; Start 02/23/17 at 07:00; Stop 02/24/17 at 06:59 Prochlorperazine Edisylate (Compazine) 5 mg PACU PRN PRN IV NAUSEA, MRX1; Start 02/23/17 at 07:00; Stop 02/24/17 at 06:59 Hydralazine HCl (Apresoline) 10 mg PRN Q4HRS PRN IVP ELEVATED BP, SEE COMMENTS Last administered on 02/22/17 23:24; Start 02/22/17 at 23:15 Bupivacaine HCl/ Epinephrine Bitart (Marcaine-Epi 0.25%-1:057420) 50 ml STK-MED ONCE .ROUTE Last administered on 02/23/17 10:50; Start 02/23/17 at 07:15; Stop 02/23/17 at 07:16; Status DC Fentanyl Citrate (Fentanyl 2ml Vial) 100 mcg STK-MED ONCE .ROUTE ; Start at 09:39; Stop 02/23/17 at 09:40; Status DC Fentanyl Citrate (Fentanyl 2ml Vial) 50 mcg PREOP PRN PRN IV PAIN Last administered on 02/23/17t 09:59; Start 02/23/17 at 09:45 Dexamethasone Sodium Phosphate (Decadron) 20 mg STK-MED ONCE .ROUTE ; Start at 09:46; Stop 02/23/17 at 09:47; Status DC Ondansetron HCl (Zofran) 4 mg STK-MED ONCE .ROUTE ; Start 02/23/17 at 09:46; Stop 02/23/17 at 09:47; Status DC Propofol 20 ml @ As Directed STK-MED ONCE IV ; Start 02/23/17 at 09:46; Stop at 09:47; Status DC Lidocaine HCl (Lidocaine Pf 2% Vial) 5 ml STK-MED ONCE .ROUTE ; Start 02/23/17 at 09:46; Stop 02/23/17 at 09:47; Status DC Midazolam HCl (Versed) 2 mg STK-MED ONCE .ROUTE ; Start 02/23/17 at 09:46; Stop 02/23/17 at 09:47; Status DC Glycopyrrolate (Robinul) 1 mg STK-MED ONCE .ROUTE ; Start 02/23/17 at 09:46; Stop 02/23/17 at 09:47; Status DC Neostigmine Methylsulfate 5 mg STK-MED ONCE .ROUTE ; Start 02/23/17 at 09:46; Stop 02/23/17 at 09:47; Status DC Rocuronium [place] (Zemuron) 50 mg STK-MED ONCE .ROUTE ; Start 02/23/17 at 09:46 ; Stop 02/23/17 at 09:47; Status DC Fentanyl Citrate (Fentanyl 2ml Vial) 100 mcg STK-MED ONCE .ROUTE ; Start at 09:46; Stop 02/23/17 at 09:47; Status DC Cellulose 1 each STK-MED ONCE .ROUTE ; Start 02/23/17 at 10:10; Stop 02/23/17 at 10:11; Status DC Cefazolin Sodium 0 ml @ As Directed STK-MED ONCE IV ; Start 02/23/17 at 10:28; Stop 02/23/17 at 10:29; Status DC Fentanyl Citrate (Fentanyl 2ml Vial) 100 mcg STK-MED ONCE .ROUTE ; Start at 10:45; Stop 02/23/17 at 10:46; Status DC Esmolol HCl (Brevibloc) 100 mg STK-MED ONCE IV ; Start 02/23/17 at 10:59; Stop 02/23/17 at 11:00; Status DC Propofol 20 ml @ As Directed STK-MED ONCE IV ; Start 02/23/17 at 11:01; Stop at 11:02; Status DC Cefazolin Sodium/ Dextrose 50 ml @ 100 mls/hr 1X ONCE IV Last administered on 02/23/17t 10:44; Start 02/23/17 at 11:15; Stop 02/23/17 at 11:44; Status DC Phenylephrine HCl 1 mg STK-MED ONCE IV ; Start 02/23/17 at 11:17; Stop 02/23/17 at 11:18; Status DC Desflurane (Suprane) 90 ml STK-MED ONCE IH ; Start 02/23/17 at 11:50; Stop 02/23 at 11:51; Status DC Desflurane (Suprane) 60 ml STK-MED ONCE IH ; Start 02/23/17 at 11:50; Stop 02/23 at 11:51; Status DC Oxycodone/ Acetaminophen (Percocet 5/325) 1 tab PRN Q4HRS PRN PO MODERATE PAIN ; Start 02/23/17 at 12:00 Oxycodone/ Acetaminophen (Percocet 5/325) 2 tab PRN Q4HRS PRN PO SEVERE PAIN; Start 02/23/17 at 12:00 Active Scripts Active Tramadol-Acetaminophn 37.5-325 (Tramadol Hcl/Acetaminophen) 1 Each Tablet 1 Tab PO Q6H Anaprox Ds (Naproxen Sodium) 550 Mg Tablet 550 Mg PO BID Benzonatate 200 Mg Capsule 1 Cap PO TID Ultram (Tramadol Hcl) 50 Mg Tablet 50 Mg PO Q6H PRN Penicillin V Potassium 500 Mg Tablet 1 Tab PO TID Protonix (Pantoprazole Sodium) 40 Mg Tablet.dr 40 Mg PO DAILY Vitals/I & O Vital Sign - Last 24 Hours 02/22/17 02/22/17 02/22/17 02/22/17 15:29 15:45 16:26 17:45 Pulse 96 Resp 16 16 16 16 B/P (MAP) 158/94 (115) O2 Delivery Room Air Room Air Room Air Room Air 02/22/17 02/22/17 02/22/17 02/22/17 18:15 19:15 19:56 20:00 Temp 97.9 97.9 Pulse 88 Resp 16 18 17 B/P (MAP) 149/102 (118) Pulse Ox 98 O2 Delivery Room Air Room Air Room Air Room Air 02/22/17 02/22/17 02/22/17 02/23/17 23:05 23:21 23:24 00:21 Temp 98.4 98.4 Pulse 90 Resp 18 16 16 B/P (MAP) 180/115 (136) 180/115 Pulse Ox 97 O2 Delivery Room Air Room Air Room Air 02/23/17 02/23/17 02/23/17 02/23/17 01:42 03:08 07:00 07:52 Temp 98.6 98.8 98.6 98.8 Pulse 97 90 Resp 16 18 20 16 B/P (MAP) 148/90 (109) 153/84 (107) Pulse Ox 97 98 O2 Delivery Room Air Room Air Room Air Room Air 02/23/17 02/23/17 02/23/17 02/23/17 08:30 09:45 09:46 09:59 Temp 98.8 98.8 Pulse 89 Resp 15 12 14 B/P (MAP) 174/112 Pulse Ox 98 96 96 O2 Delivery Nasal Cannula Room Air Room Air Room Air 02/23/17 02/23/17 02/23/17 02/23/17 11:59 11:59 12:14 12:18 Temp 97.6 97.6 Pulse 89 90 Resp 20 20 22 B/P (MAP) 147/82 152/82 Pulse Ox 100 96 96 O2 Delivery Mask Simple Mask Simple Mask Simple Mask O2 Flow Rate 10 10 10 10.0 02/23/17 02/23/17 02/23/17 02/23/17 12:29 12:41 12:44 12:55 Pulse 89 78 Resp 20 20 20 B/P (MAP) 150/80 156/85 Pulse Ox 95 99 96 O2 Delivery Simple Mask Nasal Cannula Nasal Cannula Nasal Cannula O2 Flow Rate 10 2.0 2 2 02/23/17 02/23/17 14:04 14:34 Resp 20 18 Pulse Ox 96 96 O2 Delivery BiPAP/CPAP Nasal Cannula O2 Flow Rate 2.0 2.0 Intake and Output 02/22/17 02/22/17 02/23/17 15:00 23:00 07:00 Intake Total 250 ml 0 ml Balance 250 ml 0 ml CRISSY CLEMENS MD Feb 23, 2017 15:24
[2017-02-23] MEDS: oxyCODONE/APAP 5/325 1 TAB TABLET PO PRN (16:51)
[2017-02-24] MEDS: oxyCODONE/APAP 5/325 1 TAB TABLET PO PRN ×3 (03:01→13:03)
[2017-02-24 03:05] VITALS: BP 148/100
[2017-02-24 07:00] VITALS: BP 138/83
--- NOTE | 2017-02-24 09:22 | PDOC ---
SURGICAL PROGRESS NOTE Subjective Doing ok, tolerating diet Vital Signs Vital Signs Date Time Temp Pulse Resp B/P (MAP) Pulse Ox O2 Delivery O2 Flow Rate FiO2 02/24/17 09:04 18 Room Air 02/24/17 07:00 97.9 86 138/83 (101) 96 97.9 02/23/17 17:51 2.0 I&O Intake and Output 02/24/17 07:00 Intake Total 2550 ml Output Total 20 ml Balance 2530 ml Intake Oral 900 ml IV Total 1650 ml Output Urine Total 0 ml Estimated Blood Loss 20 ml # Voids 5 PATIENT HAS A ZAMORA: No General: Alert, Oriented X3, Cooperative, mild distress Abdomen: Normal bowel sounds, Soft, Other (wound c/d/i mild RUQ tenderness) Problem List Problems Medical Problems: (1) Abdominal pain Status: Acute Assessment/Plan S/P L/S Cholecystectomy Doing fine OK to D/C home when ok with medicine Problems: MARIANN MICHEL MD Feb 24, 2017 09:22
--- NOTE | 2017-02-24 09:30 | DISCH ---
DISCHARGE INSTRUCTIONS Condition on Discharge Condition on Discharge: Stable Activity After Discharge Activity Instructions for Disc: Avoid exertion Other activity instructions: No lifting >20lbs for 2 weeks Diet after Discharge Diet after Discharge: Low Fat Wound Incision Care Other wound/incision instructi: Kiara caceres Contacting the after DC Call your doctor for: If your condition worsens Follow-Up Follow up with: Dr Michel in 2 weeks MARIANN MICHEL MD Feb 24, 2017 09:30
[2017-02-24 11:00] VITALS: BP 124/72
[2017-02-24 15:00] VITALS: BP 127/75
--- NOTE | 2017-02-26 10:48 | PDOC3 ---
Discharge Summary Visit Information Date of Admission: Feb 22, 2017 Date of Discharge: Feb 24, 2017 Admitting Diagnosis: acute abd pain Final Diagnosis acute cholecystitis morbid obesity, BMI 52 .Problems Medical Problems: (1) Abdominal pain Status: Acute Brief Hospital Course Allergies Allergies Coded Allergies Type Severity Reaction Last Updated Verified No Known Drug Allergies 08/05/13 No Brief Hospital Course Ms. Mcmillan is a 26 old had been seen a week priro for acute tanvir, left due to family issues (). returned with same pain, RUQ and epigastric pain taken to OR by Dr. Cody, did well, pain OK after DC home, lifting limitations 2 mos. Discharge Information Condition at Discharge: Improved Follow Up: Weeks Disposition/Orders: D/C to Home Scheduled Benzonatate (Benzonatate), 1 CAP PO TID Pantoprazole Sodium (Protonix), 40 MG PO DAILY Tramadol Hcl/Acetaminophen (Tramadol-Acetaminophn 37.5-325), 1 TAB PO Q6H Scheduled PRN Tramadol Hcl (Ultram), 50 MG PO Q6H PRN for PAIN Discontinued Medications Naproxen Sodium (Anaprox Ds), 550 MG PO BID Penicillin V Potassium (Penicillin V Potassium), 1 TAB PO TID Patient Instructions Patient Instructions time, , 30 min f.u CRISSY Harding MD Feb 26, 2017 10:48
--- NOTE | 2017-02-27 13:35 | PATHOLOGY ---
PATHOLOGY REPORT * * * * * * * * FINAL DIAGNOSIS: Gallbladder, laparoscopic cholecystectomy: - Cholelithiasis. - Acute and chronic cholecystitis with numerous eosinophils. COMMENT: There is no evidence of malignancy. (JPM:mgr; 02/27/2017) REPORT ELECTRONICALLY SIGNED BY: Liam Barrera M.D. DATE/TIME: 02/27/2017 13:34 * * * * * * * * GROSS PATHOLOGY: Received in formalin labeled "Daniel Parada, gallbladder," is a 9.7 x 3.2 x 2.4 cm, partially opened gallbladder with reddish gil to gil brown serosal surfaces. Opening the gallbladder reveals dark reddish brown, velvety, focally necrotic appearing mucosa and an average wall thickness of 0.7 cm. Calculi are present and no masses are noted grossly. Preventive Maintenance Coordinator sections from the body and fundus are submitted along with the proximal margin in cassette A1. (JPM; 02/24/17) INITIAL CPT CODE(S): A; 99093 Professional services [place] [address] Technical services performed by [facility] at [address] [place] [address] [address] [address]. SPECIMEN(S) RECEIVED: A.Gallbladder and contents CLINICAL HISTORY: Abdominal pain PATIENT: DANIEL PARADA /AGE: 4 1990 (Age: 26) PATIENT #: [id number] ALT CASE #: SPECIMEN COLLECTION DATE: 02/23/2017 SPECIMEN RECEIVED DATE: 02/24/2017 [facility] - [address] [place] [address] - PHONE: [phone] * * * END OF REPORT * * *
== END 2017-02-24 17:00 | disposition home or self-care (01) | DRG 418 ==
LOC: ER 14:19 → 4 NORTH 18:30 → OBSVTOIN 02-22 14:41
PROVIDERS: ADMIT Internal Medicine; ATTEND Internal Medicine
PROC: 5A09357 Assistance with Respiratory Ventilation, Less than 24 Consecutive Hours, Continuous Positive Airway Pressure (ICD-10-PCS; 2017-02-23)
PROC: 0FT44ZZ Resection of Gallbladder, Percutaneous Endoscopic Approach (ICD-10-PCS; principal; 2017-02-23 12:00)
DX: K80.00 Calculus of gallbladder with acute cholecystitis without obstruction (principal); E44.1 Mild protein-calorie malnutrition; Z68.43 Body mass index [BMI] 50.0-59.9, adult; I10 Essential (primary) hypertension; E66.01 Morbid (severe) obesity due to excess calories; J45.909 Unspecified asthma, uncomplicated; D75.89 Other specified diseases of blood and blood-forming organs; Z90.89 Acquired absence of other organs; Z79.899 Other long term (current) drug therapy; Z82.49 Family history of ischemic heart disease and other diseases of the circulatory system
CPT/HCPCS: 36415; 76705; 80053; 81001; 81025; 83690; 85027; 88304; 94250; 94760; 96361; 96374; 96375; G0378; G0379; J0360; J0690; J1100; J1170; J1200; J2001; J2250; J2370; J2405; J2704; J2710; J3010; J3490; J7030; J7120; 99285-25

== ENCOUNTER 2017-03-23 17:39 | Emergency (ER) | payer SELFPAY ==
[~2017-03-23 17:39] MED LIST changes: +hydroCHLOROthiazide 25 MG TABLET PO ONE
[2017-03-23 18:20] LABS: BASO % 0 % (0-3); EOS % 5 % (0-3); HEMATOCRIT 38.1 % (36.0-47.0); HEMOGLOBIN 12.3 g/dL (12.0-15.5); LYMPH % 35 % (24-48); MEAN CORPUSCULAR HEMOGLOBIN 28 pg (25-35); MEAN CORPUSCULAR HGB CONC 32 g/dL (31-37); MEAN CORPUSCULAR VOLUME 88 fL (79-100); MONO % 6 % (0-9); NEUT % 53 % (31-73); PLATELET COUNT 268 x10^3/uL (140-400); RED BLOOD COUNT 4.33 x10^6/uL (3.50-5.40); RED CELL DISTRIBUTION WIDTH 15.2 % (11.5-14.5); WHITE BLOOD COUNT 8.5 x10^3/uL (4.0-11.0)
[2017-03-23 18:22] VITALS: BP 149/90
[2017-03-23 18:33] LABS: CALCIUM 8.4 mg/dL (8.5-10.1); CREATININE 0.9 mg/dL (0.6-1.0); GFR 90.2
[2017-03-23 18:39] LABS: ALBUMIN 3.2 g/dL (3.4-5.0); ALBUMIN/GLOBULIN RATIO 0.8 (1.0-1.7); TOTAL BILIRUBIN 0.3 mg/dL (0.2-1.0); TOTAL PROTEIN 7.3 g/dL (6.4-8.2)
[2017-03-23] MEDS ORDERED: IBUP-1007 PO (19:28)
[2017-03-23] MEDS ORDERED: HYDR50TA6 PO (19:28)
--- NOTE | 2017-03-23 19:28 | PHYS DOC ---
Past Medical History Past Medical History: Asthma Additional Past Medical Histor: HTN WITH Past Surgical History: Cholecystectomy, , Tonsillectomy Alcohol Use: Occasionally Drug Use: None Adult General Chief Complaint Chief Complaint: CHEST PAIN HPI HPI Patient is a 26 year old female who presents here today secondary to elevated blood pressure and headache. Patient reports that she took one of her medications that she was given when she was for hypertension but she does not recall the name of the medicine was that she took today. Patient reports after taking it she had an episode of emesis. Patient reports no history of hypertension other than gestational hypertension, no history of diabetes liver lung or kidney pals. No coronary disease or strokes. Patient does not smoke or do drugs. Patient is allergic to medications. Patient reports she had a cholecystectomy 2 weeks ago was told that her blood pressure was elevated however she was not given any medications to go home with. Patient does not have a primary care physician. Patient denies any fevers shakes chills nausea vomiting diarrhea chest pain shortness of breath cough cold runny nose. Patient reports that she had chest discomfort earlier today however that has since resolved. Patient denies any dyspnea on exertion lower extremity edema PND or orthopnea. Review of systems: Constitutional: Denies fever or chills Eyes: Denies change in visual acuity, redness, or eye pain HENT: Denies nasal congestion or sore throat All other review systems are negative except as documented in the history of present illness portion. Physical exam: Constitutional: Well developed, well nourished, no acute distress, non-toxic appearance. HENT: Normocephalic, atraumatic, bilateral external ears normal, oropharynx moist, no oral exudates, nose normal. Eyes: EOMI, conjunctiva normal, no discharge. Neck: Normal range of motion, no tenderness, supple, no stridor. Cardiovascular:Heart rate regular rhythm Lungs & Thorax: No respiratory distress Abdomen: Bowel sounds normal, soft, no masses, no pulsatile masses. Skin: Warm, dry, no erythema, no rash. Back: No tenderness, no CVA tenderness. Extremities: No tenderness, no cyanosis, no clubbing, ROM intact, no edema. Neurologic: Alert and oriented X 3, normal motor function, normal sensory function, no focal deficits noted. Psychologic: Affect normal, judgement normal, mood normal. Patient's physical exam the ED is unremarkable. Patient's funduscopic exam was within normal limits. There was no papilledema. Patient's blood pressure in the ER is currently 162/96. Patient's heart rate is 76. EKG: Normal sinus rhythm at a heart rate of [address]-T wave abnormalities. No evidence of ST elevation [place]. Chest x-ray reveals normal heart size. No infiltrates or effusions. No evidence of pulmonary edema. Assessment and plan 26-year-old female with headache and hypertension. Patient has no primary care physician. Patient reports her blood pressure was elevated 2 weeks ago when she was here but was never discharged with any indications prior to discharge. Discharged home on hydrochlorothiazide will be instructed to follow-up with her primary care physician for further evaluation and treatment of her hypertension. Patient's ER workup is been unremarkable. Allergies Allergies Allergies Coded Allergies Type Severity Reaction Last Updated Verified No Known Drug Allergies 08/05/13 No Current Patient Data Vital Signs Vital Signs Date Time Temp Pulse Resp B/P (MAP) Pulse Ox O2 Delivery O2 Flow Rate FiO2 03/23/17 18:22 70 149/90 (109) 98 Room Air 03/23/17 17:46 98.7 18 98.7 Lab Values Laboratory Tests Test 03/23/17 17:06 03/23/17 18:05 POC Urine HCG, Qualitative Hcg negative (Negative) White Blood Count 8.5 x10^3/uL (4.0-11.0) Red Blood Count 4.33 x10^6/uL (3.50-5.40) Hemoglobin 12.3 g/dL (12.0-15.5) Hematocrit 38.1 % (36.0-47.0) Mean Corpuscular Volume 88 fL (79-100) Mean Corpuscular Hemoglobin 28 pg (25-35) Mean Corpuscular Hemoglobin Concent 32 g/dL (31-37) Red Cell Distribution Width 15.2 % (11.5-14.5) H Platelet Count 268 x10^3/uL (140-400) Neutrophils (%) (Auto) 53 % (31-73) Lymphocytes (%) (Auto) 35 % (24-48) Monocytes (%) (Auto) 6 % (0-9) Eosinophils (%) (Auto) 5 % (0-3) H Basophils (%) (Auto) 0 % (0-3) Neutrophils # (Auto) 4.5 x10^3uL (1.8-7.7) Lymphocytes # (Auto) 3.0 x10^3/uL (1.0-4.8) Monocytes # (Auto) 0.5 x10^3/uL (0.0-1.1) Eosinophils # (Auto) 0.5 x10^3/uL (0.0-0.7) Basophils # (Auto) 0.0 x10^3/uL (0.0-0.2) Sodium Level 143 mmol/L (136-145) Potassium Level 4.0 mmol/L (3.5-5.1) Chloride Level 107 mmol/L (98-107) Carbon Dioxide Level 31 mmol/L (21-32) Anion Gap 5 (6-14) L Blood Urea Nitrogen 11 mg/dL (7-20) Creatinine 0.9 mg/dL (0.6-1.0) Estimated GFR (Cockcroft-Gault) 90.2 BUN/Creatinine Ratio 12 (6-20) Glucose Level 88 mg/dL (70-99) Calcium Level 8.4 mg/dL (8.5-10.1) L Total Bilirubin 0.3 mg/dL (0.2-1.0) Aspartate Amino Transferase (AST) 21 U/L (15-37) Alanine Aminotransferase (ALT) 33 U/L (14-59) Alkaline Phosphatase 50 U/L (46-116) Troponin I Quantitative < 0.017 ng/mL (0.000-0.055) Total Protein 7.3 g/dL (6.4-8.2) Albumin 3.2 g/dL (3.4-5.0) L Albumin/Globulin Ratio 0.8 (1.0-1.7) L Laboratory Tests 03/23/17 18:05 Laboratory Tests 03/23/17 18:05 EKG EKG [] Radiology/Procedures Radiology/Procedures [] Course & Med Decision Making Course & Med Decision Making Pertinent Labs and Imaging studies reviewed. (See chart for details) [] Dragon Disclaimer Dragon Disclaimer This electronic medical record was generated, in whole or in part, using a voice recognition dictation system. Departure Departure Impression: Primary Impression: Atypical chest pain Additional Impressions: Headache Hypertension Disposition: HOME, SELF-CARE Condition: IMPROVED Referrals: NO PCP (PCP) Patient Instructions: General Headache Without Cause, Hypertension Scripts Ibuprofen (IBUPROFEN) 600 Mg Tablet 600 MG PO PRN Q6HRS Y for PAIN, #20 TAB Prov: EMILE RODGERS MD 03/23/17 Hydrochlorothiazide (HYDROCHLOROTHIAZIDE TABLET) 50 Mg Tablet 1 TAB PO DAILY, #30 TAB 5 Refills Prov: EMILE RODGERS MD 03/23/17 Problem Qualifiers EMILE RODGERS MD Mar 23, 2017 19:28
[2017-03-23] MEDS ORDERED: KETOROLAC 15 MG/ML VIAL. IV ONE (19:30)
[2017-03-23] MEDS ORDERED: hydroCHLOROthiazide 12.5 MG CAPSULE PO ONE (19:45)
--- NOTE | 2017-03-24 06:14 | EKG ---
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
--- NOTE | 2017-03-24 07:31 | RAD ---
Chest radiograph 03/23/2017 8:09 PM Indication: Nontraumatic chest pain, hypertension and asthma. Comparison: Chest radiograph 04/12/2016 Technique: PA and lateral views of the chest are provided. Findings: Cardiomediastinal silhouette is within normal limits. No pleural effusions, pulmonary vascular congestion or pneumothorax. The lungs are clear. Osseous structures are normal. Cholecystectomy clips are noted in the right upper quadrant. Impression: No acute cardiopulmonary process.
== END 2017-03-23 19:46 | disposition home or self-care (01) ==
LOC: ER 17:39
DX: R07.89 Other chest pain (principal); R51 Headache; I10 Essential (primary) hypertension; J45.909 Unspecified asthma, uncomplicated; Z90.49 Acquired absence of other specified parts of digestive tract
CPT/HCPCS: 36415; 71020; 80053; 81025; 84484; 85025; 93005; 96374; 99285; J1885

== ENCOUNTER 2017-06-28 04:55 | Emergency (ER) | payer SELFPAY ==
[2017-06-28 04:55] VITALS: BP 170/89
[~2017-06-28 04:55] MED LIST changes: +HYDR50TA6 PO; +IBUP-1007 PO; +NAPR-682 PO; -NAPR550T PO; -hydroCHLOROthiazide 25 MG TABLET PO ONE
[2017-06-28] MEDS ORDERED: METH4TAB2 PO (05:11)
[2017-06-28] MEDS ORDERED: PROAIR HFA8.5 GM INH (05:11)
--- NOTE | 2017-06-28 05:12 | PHYS DOC ---
Past Medical History Past Medical History: Asthma Additional Past Medical Histor: HTN WITH Past Surgical History: Cholecystectomy, , Tonsillectomy Additional Information: Non smoker Alcohol Use: Occasionally Drug Use: None Social History Narrative: Works at [employer] Adult General Chief Complaint Chief Complaint: COUGH HPI HPI Patient is a 26 year old female who presents with cough. She has had a "cold" and has been exposed to "many sick" at work. She works at a [employer]. She denies recent travel. No vomiting. She is a non smoker. She has an inhaler at home "but I can't find it." She does request a work note. No leg pain or swelling; no chest pain. No fever. Review of Systems Review of Systems Constitutional: Denies fever or chills Eyes: Denies change in visual acuity, redness, or eye pain HENT: POS nasal congestion and sore throat Respiratory: POS cough and wheezing with shortness of breath Cardiovascular: No chest pain GI: Denies abdominal pain, nausea, vomiting, bloody stools or diarrhea : Denies dysuria or hematuria Musculoskeletal: Denies back pain or joint pain Integument: Denies rash or skin lesions Neurologic: Denies headache, focal weakness or sensory changes All other systems were reviewed and found to be within normal limits, except as documented in this note. Allergies Allergies Allergies Coded Allergies Type Severity Reaction Last Updated Verified No Known Drug Allergies 08/05/13 No Physical Exam Physical Exam Constitutional: Well developed, well nourished, no acute distress, non-toxic appearance. HENT: Normocephalic, atraumatic, tympanic membranes are clear bilaterally , bilateral external ears normal, oropharynx moist, no oral exudates, nose normal. Eyes: PERRLA, EOMI, conjunctiva normal, no discharge. Neck: Normal range of motion, no tenderness, supple, no stridor. Cardiovascular:Heart rate regular rhythm, no murmur Lungs & Thorax: Bilateral breath sounds clear to auscultation; no active wheezing. Constant coughing. Abdomen: Bowel sounds normal, soft, no tenderness, no masses, no pulsatile masses. Skin: Warm, dry, no erythema, no rash. Back: No tenderness, no CVA tenderness. Extremities: No tenderness, no cyanosis, no clubbing, ROM intact, no edema. Neurologic: Alert and oriented X 3, normal motor function, normal sensory function, no focal deficits noted. Psychologic: Affect normal, judgement normal, mood normal. Current Patient Data Vital Signs Vital Signs Date Time Temp Pulse Resp B/P (MAP) Pulse Ox O2 Delivery O2 Flow Rate FiO2 06/28/17 04:55 98.5 100 20 97 Room Air 98.5 Course & Med Decision Making Course & Med Decision Making evaluated patient. Rx: for medrol dose jorge luis and Inhaler. Work note provided. SHe has hypertension and is on meds. PERC Criteria Assessment: Age > 50: No HR > 100: No 02 < 95%: No H/o DVT/PE: No Recent trauma/surgery: No Hemoptysis No Exogenous Estrogen: No Unilateral Leg swelling: No Pretest probability > 15%: No Less than 2% risk of PE. No further work up is necessary I have spoken with the patient and/or caregivers. I have explained the patient' s condition, diagnosis and treatment plan based on the information available to me at this time. I have answered the patient's and/or caregiver's questions and addressed any concerns. The patient and/or caregivers have as good an understanding of the patient's diagnosis, condition and treatment plan as can be expected at this point. The patient's condition is stable and appropriate for discharge from the emergency department. The patient will pursue further outpatient evaluation with the primary care physician or other designated or consulting physician as outlined in the discharge instructions. The patient and/or caregivers are agreeable to this plan of care and follow-up instructions have been explained in detail. The patient and/or caregivers have received these instructions in written format and have expressed an understanding of the discharge instructions. The patient and/or caregivers are aware that any significant change in condition or worsening of symptoms should prompt an immediate return to this or the closest emergency department or a call to 911. Dragon Disclaimer Dragon Disclaimer This electronic medical record was generated, in whole or in part, using a voice recognition dictation system. Departure Departure Impression: Primary Impression: Cough Additional Impression: Bronchospasm, acute Disposition: 01 HOME, SELF-CARE Condition: STABLE Referrals: NO PCP (PCP) Patient Instructions: Bronchospasm, Adult, Cough, Adult Scripts Albuterol Sulfate (PROAIR HFA INHALER) 8.5 Gm Hfa.aer.ad 1 PUFF INH PRN Q6HRS Y for SHORTNESS OF BREATH, #1 INHALER 0 Refills Prov: AYLIN,GLENNA M MD 06/28/17 Methylprednisolone (MEDROL) 4 Mg Tab.ds.pk 1 PKG PO UD, #1 PKG Prov: GLENNA VIERA MD 06/28/17 Problem Qualifiers GLENNA VIERA MD Jun 28, 2017 05:12
== END 2017-06-28 05:14 | disposition home or self-care (01) ==
LOC: ER 04:55
DX: J98.01 Acute bronchospasm (principal); J45.909 Unspecified asthma, uncomplicated; I10 Essential (primary) hypertension
CPT/HCPCS: 99283

== ENCOUNTER 2017-08-16 16:12 | Emergency (ER) | payer SELFPAY ==
[2017-08-16 17:15] LABS: INFLUENZA A PATIENT NEGATIVE (NEGATIVE); INFLUENZA B PATIENT NEGATIVE (NEGATIVE); OBC FLU VALID
[2017-08-17 09:20] LABS: NEGATIVE OBC STREP NEG; POSITIVE OBC STREP POS
== END 2017-08-16 17:25 | disposition home or self-care (01) ==
LOC: ER 16:12
DX: J02.0 Streptococcal pharyngitis (principal); I10 Essential (primary) hypertension; J45.909 Unspecified asthma, uncomplicated; Z79.899 Other long term (current) drug therapy
CPT/HCPCS: 87804; 87804-59; 87880; 99284

== ENCOUNTER 2017-09-12 07:57 | Emergency (ER) | payer SELFPAY | END 2017-09-12 09:36 | disposition home or self-care (01) | LOC: ER 07:57 | DX: S89.91XA Unspecified injury of right lower leg, initial encounter (principal); M25.461 Effusion, right knee; J45.909 Unspecified asthma, uncomplicated; I10 Essential (primary) hypertension; W01.0XXA Fall on same level from slipping, tripping and stumbling without subsequent striking against object, initial encounter; Y93.01 Activity, walking, marching and hiking; Y92.89 Other specified places as the place of occurrence of the external cause; Y99.8 Other external cause status | CPT/HCPCS: 73562; 99284 ==

== ENCOUNTER 2017-09-19 21:31 | Emergency (ER) | payer SELFPAY | END 2017-09-19 23:19 | disposition home or self-care (01) | LOC: ER 21:31 | DX: S80.01XA Contusion of right knee, initial encounter (principal); M17.11 Unilateral primary osteoarthritis, right knee; J45.909 Unspecified asthma, uncomplicated; I10 Essential (primary) hypertension; W18.39XA Other fall on same level, initial encounter; Y93.89 Activity, other specified; Y92.89 Other specified places as the place of occurrence of the external cause; Y99.8 Other external cause status | CPT/HCPCS: 99283 ==

== ENCOUNTER 2017-12-30 02:59 | Emergency (ER) | payer SELFPAY ==
[2017-12-30] MEDS: METOCLOPRAMIDE HCL 10 MG/2 ML VIAL. IV (04:36)
[2017-12-30] MEDS: diphenhydrAMINE 50 MG/ML VIAL IVP (04:37)
[2017-12-30] MEDS: KETOROLAC 30 MG/ML INJ. IV (04:37)
== END 2017-12-30 05:28 | disposition home or self-care (01) ==
LOC: ER 02:59
DX: R51 Headache (principal); R42 Dizziness and giddiness; I10 Essential (primary) hypertension; J45.909 Unspecified asthma, uncomplicated; H53.149 Visual discomfort, unspecified
CPT/HCPCS: 96374; 96375; 99284; J1200; J1885; J2765

== ENCOUNTER 2018-09-14 07:01 | Emergency (ER) | payer SELFPAY ==
[~2018-09-14] VITALS: Ht 162.6 cm; Wt 127.0 kg
[~2018-09-14 07:01] MED LIST changes: +ALBU2.5V8 INH; +AMOX1TAB61 PO; +IBUP-1060 PO; +METH4TAB2 PO; +METO10TA81 PO
[2018-09-14 09:13] VITALS: BP 160/110
[2018-09-14] MEDS: cloNIDine HCL 0.1 MG TABLET PO ONE (09:13)
[2018-09-14] MEDS: cefTRIAXone IM 1 GM VIAL IM ONE (09:14)
[2018-09-14] MEDS: KETOROLAC 60 MG/2 ML VIAL. IM ONE (09:15)
[2018-09-14] MEDS ORDERED: CLIN300C8 PO (09:34)
[2018-09-14] MEDS ORDERED: HYDR-3164 PO (09:37)
[2018-09-14] MEDS ORDERED: HYDR-2145 PO (09:37)
--- NOTE | 2018-09-14 09:38 | PHYS DOC ---
Past Medical History Past Medical History: Asthma, Hypertension, Migraines Additional Past Medical Histor: HTN WITH Past Surgical History: Cholecystectomy, , Tonsillectomy Alcohol Use: None Drug Use: None Adult General Chief Complaint Chief Complaint: DENTAL PROBLEM HPI HPI Patient is a 27 year old [f__sex] who presents with [] Review of Systems Review of Systems Constitutional: Denies fever or chills [] Eyes: Denies change in visual acuity, redness, or eye pain [] HENT: Denies nasal congestion or sore throat [] Respiratory: Denies cough or shortness of breath [] Cardiovascular: No additional information not addressed in HPI [] GI: Denies abdominal pain, nausea, vomiting, bloody stools or diarrhea [] : Denies dysuria or hematuria [] Musculoskeletal: Denies back pain or joint pain [] Integument: Denies rash or skin lesions [] Neurologic: Denies headache, focal weakness or sensory changes [] Endocrine: Denies polyuria or polydipsia [] All other systems were reviewed and found to be within normal limits, except as documented in this note. Current Medications Current Medications Current Medications Medications (Trade) Dose Ordered Sig/Kirti Start Time Stop Time Status Last Admin Dose Admin Ceftriaxone Sodium (Rocephin Im) 1 gm 1X ONCE 09/14/18 08:15 09/14/18 08:21 DC 09/14/18 09:14 1 GM Clonidine HCl (Catapres) 0.1 mg 1X ONCE 09/14/18 08:15 09/14/18 08:21 DC 09/14/18 09:13 0.1 MG Ketorolac Tromethamine (Toradol Im) 60 mg 1X ONCE 09/14/18 08:15 09/14/18 08:21 DC 09/14/18 09:15 60 MG Allergies Allergies Allergies Coded Allergies Type Severity Reaction Last Updated Verified No Known Drug Allergies 08/05/13 No Physical Exam Physical Exam Constitutional: Well developed, well nourished, no acute distress, non-toxic appearance. [] HENT: Normocephalic, atraumatic, bilateral external ears normal, oropharynx moist, no oral exudates, nose normal. [] Eyes: PERRLA, EOMI, conjunctiva normal, no discharge. [] Neck: Normal range of motion, no tenderness, supple, no stridor. [] Cardiovascular:Heart rate regular rhythm, no murmur [] Lungs & Thorax: Bilateral breath sounds clear to auscultation [] Abdomen: Bowel sounds normal, soft, no tenderness, no masses, no pulsatile masses. [] Skin: Warm, dry, no erythema, no rash. [] Back: No tenderness, no CVA tenderness. [] Extremities: No tenderness, no cyanosis, no clubbing, ROM intact, no edema. [] Neurologic: Alert and oriented X 3, normal motor function, normal sensory function, no focal deficits noted. [] Psychologic: Affect normal, judgement normal, mood normal. [] Current Patient Data Vital Signs Vital Signs Date Time Temp Pulse Resp B/P (MAP) Pulse Ox O2 Delivery O2 Flow Rate FiO2 09/14/18 09:13 88 160/110 09/14/18 07:11 98.6 20 99 Room Air 98.6 Lab Values Laboratory Tests Test 09/14/18 08:26 POC Urine HCG, Qualitative Hcg negative (Negative) EKG EKG [] Radiology/Procedures Radiology/Procedures [] Course & Med Decision Making Course & Med Decision Making Pertinent Labs and Imaging studies reviewed. (See chart for details) [] Dragon Disclaimer Dragon Disclaimer This electronic medical record was generated, in whole or in part, using a voice recognition dictation system. Departure Departure Impression: Primary Impression: Dental caries Additional Impression: Dental abscess Disposition: 01 HOME, SELF-CARE Condition: STABLE Referrals: NO PCP (PCP) Patient Instructions: Dental Abscess, Dental Caries Additional Instructions: Take the antibiotic as directed. Use the pain medication as directed. Do not drive or operate heavy machinery while taking the pain medication. I have refilled your hydrochlorothiazide. Follow-up with your clinic for further management of your hypertension. If you are worsening return to the emergency department otherwise follow-up with a dentist at an earliest available appointment. Scripts Hydrocodone/Apap 5-325 (NORCO 5-325 TABLET) 1 Each Tablet 1 TAB PO PRN Q6HRS PRN for PAIN, #20 TAB 0 Refills Prov: WILLIAM PEARSON APRN 09/14/18 Hydrochlorothiazide (HYDROCHLOROTHIAZIDE TABLET ) 25 Mg Tablet 25 MG PO DAILY for DIURETIC for 30 Days, #30 TAB 3 Refills Prov: WILLIAM PEARSON APRN 2/8/19 Clindamycin Hcl (CLINDAMYCIN HCL) 300 Mg Capsule 1 CAP PO TID for dental abscess, #30 CAP Prov: WILLIAM PEARSON APRN 09/14/18 Problem Qualifiers WILLIAM PEARSON APRN Sep 14, 2018 09:38
== END 2018-09-14 09:49 | disposition home or self-care (01) ==
LOC: ER 07:01
DX: K02.9 Dental caries, unspecified (principal); K04.7 Periapical abscess without sinus; J45.909 Unspecified asthma, uncomplicated; I10 Essential (primary) hypertension; G43.909 Migraine, unspecified, not intractable, without status migrainosus; Z90.49 Acquired absence of other specified parts of digestive tract; Z90.89 Acquired absence of other organs; Z98.890 Other specified postprocedural states
CPT/HCPCS: 81025; 99283; J0696; J1885

== ENCOUNTER 2018-09-26 21:10 | Emergency (ER) | payer SELFPAY ==
[~2018-09-26] VITALS: Ht 162.6 cm; Wt 127.0 kg
[~2018-09-26 21:10] MED LIST changes: +CLIN300C8 PO; +HYDR-2145 PO; +HYDR-3164 PO
[2018-09-26 21:27] VITALS: BP 134/92
--- NOTE | 2018-09-26 22:21 | PHYS DOC ---
Past Medical History Past Medical History: Asthma, Hypertension Additional Past Medical Histor: HTN WITH Past Surgical History: Cholecystectomy Alcohol Use: Occasionally Drug Use: None Adult General Chief Complaint Chief Complaint: FLU SYMPTOM HPI HPI Patient is a 27 year old female who presents with two days of flu like symptoms. 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 Symptoms include pleuritic chest pain, cough, sinus pressure, nasal congestion, ear pressure, myalgias, nausea, vomiting, chills. She has been taking ibuprofen with little relief of pain. Also had an old prescription for clindamycin and she took one pill earlier today. She denies shortness of breath, chest pressure, palpitations , abdominal pain, and diarrhea, dysuria. Review of Systems Review of Systems Constitutional: reports chills [] Eyes: Denies change in visual acuity, redness, or eye pain [] HENT: Reports nasal congestion, sinus tenderness [] Respiratory: Reports cough, pleuritic pain GI: Reports nausea and vomiting : Denies dysuria or hematuria [] Musculoskeletal: reports diffuse myalgias Integument: Denies rash or skin lesions [] Neurologic: Denies headache, focal weakness or sensory changes [] Complete systems were reviewed and found to be within normal limits, except as documented in this note. Current Medications Current Medications Current Medications Medications (Trade) Dose Ordered Sig/Kirti Start Time Stop Time Status Last Admin Dose Admin Dexamethasone (Decadron) 10 mg 1X ONCE 09/26/18 23:00 09/26/18 23:01 DC 09/26/18 23:02 10 MG Allergies Allergies Allergies Coded Allergies Type Severity Reaction Last Updated Verified No Known Drug Allergies 08/05/13 No Physical Exam Physical Exam Constitutional: Well developed, well nourished, no acute distress, non-toxic appearance. [] HENT: Normocephalic, atraumatic, bilateral external ears normal, oropharynx moist, no oral exudates, nose normal. [] Eyes: PERRLA, EOMI, conjunctiva normal, no discharge. [] Neck: Normal range of motion, no tenderness, supple, no stridor. [] Cardiovascular:Heart rate regular rhythm, no murmur [] Lungs & Thorax: Bilateral breath sounds clear to auscultation [] Abdomen: Bowel sounds normal, soft, no tenderness, no masses, no pulsatile masses. [] Skin: Warm, dry, no erythema, no rash. [] Back: No tenderness, no CVA tenderness. [] Extremities: No tenderness, no cyanosis, no clubbing, ROM intact, no edema. [] Neurologic: Alert and oriented X 3, normal motor function, normal sensory function, no focal deficits noted. [] Psychologic: Affect normal, judgement normal, mood normal. [] Current Patient Data Vital Signs Vital Signs Date Time Temp Pulse Resp B/P (MAP) Pulse Ox O2 Delivery O2 Flow Rate FiO2 09/26/18 21:27 97.4 87 18 134/92 (106) 100 Room Air 97.4 Lab Values Laboratory Tests Test 09/26/18 23:03 Influenza Type A Antigen Negative (NEGATIVE) Influenza Type B Antigen Negative (NEGATIVE) EKG EKG [] Radiology/Procedures Radiology/Procedures [] Course & Med Decision Making Course & Med Decision Making Pertinent Labs and Imaging studies reviewed. (See chart for details) Patient presents with flu like symptoms and recent sick contacts. Influenza A and B were negative. There were no acute findings on chest xray. Symptomatic treatment provided. Patient discharged with steroid burst and albuterol. Dragon Disclaimer Dragon Disclaimer This electronic medical record was generated, in whole or in part, using a voice recognition dictation system. Departure Departure Impression: Primary Impression: Bronchitis Disposition: 01 HOME, SELF-CARE Condition: STABLE Referrals: NO PCP (PCP) Patient Instructions: Acute Bronchitis, [id number] Scripts Prednisone (PREDNISONE) 20 Mg Tablet 2 TAB PO DAILY, #8 TAB start tomorrow 09/27/18 Prov: DEEPA NEWMAN DO 09/26/18 Albuterol Sulfate (PROAIR HFA INHALER) 8.5 Gm Hfa.aer.ad 1 PUFF INH PRN Q6HRS PRN for SHORTNESS OF BREATH, #1 INHALER 0 Refills Prov: DEEPA NEWMAN DO 09/26/18 DEEPA NEWMAN DO Sep 26, 2018 22:21
[2018-09-26] MEDS ORDERED: DEXAMETHASONE 4 MG TABLET PO ONE (23:00)
[2018-09-26 23:26] LABS: INFLUENZA A PATIENT NEGATIVE (NEGATIVE); INFLUENZA B PATIENT NEGATIVE (NEGATIVE)
[2018-09-26] MEDS ORDERED: ALBU2.5V8 INH (23:59)
[2018-09-26] MEDS ORDERED: PRED20TA PO (23:59)
--- NOTE | 2018-09-27 08:04 | RAD ---
Chest, 2 views, 09/26/2018: HISTORY: Cough Comparison is made to a study from 03/23/2017. The heart size and pulmonary vascularity are normal. No pulmonary infiltrate is seen. There is no evidence of pleural fluid. IMPRESSION: No acute cardiopulmonary abnormality is detected. Electronically signed by: Paul Obando MD (09/27/2018 8:01 AM) [facility]
== END 2018-09-27 00:04 | disposition home or self-care (01) ==
LOC: ER 21:10
DX: J45.909 Unspecified asthma, uncomplicated (principal); M79.18 Myalgia, other site; R11.2 Nausea with vomiting, unspecified; I10 Essential (primary) hypertension; Z90.49 Acquired absence of other specified parts of digestive tract
CPT/HCPCS: 71046; 87804; 99284; J8540

== ENCOUNTER 2018-10-01 10:19 | Emergency (ER) | payer SELFPAY ==
[~2018-10-01] VITALS: Ht 162.6 cm; Wt 127.0 kg
[~2018-10-01 10:19] MED LIST changes: +PRED20TA PO
--- NOTE | 2018-10-01 11:12 | PHYS DOC ---
Past Medical History Past Medical History: Asthma, Hypertension Additional Past Medical Histor: HTN WITH Past Surgical History: Cholecystectomy Alcohol Use: Occasionally Drug Use: None Adult General Chief Complaint Chief Complaint: CHEST PAIN HPI HPI Patient is a 27 year old female presented to ER today for evaluation of left- sided chest pain that radiated to her left arm started this morning. Patient said the chest started last night, the pain on her left arm started this morning. She denies any trouble breathing. Patient is on control medication, she is not a smoker, no recent travel, no recent operation. Patient has history of asthma. sHe had no history diabetic, no history of coronary artery disease. Review of Systems Review of Systems Constitutional: Denies fever or chills [] Eyes: Denies change in visual acuity, redness, or eye pain [] HENT: Denies nasal congestion or sore throat [] Respiratory: Denies cough or shortness of breath [] Cardiovascular: Positive for chest pain GI: Denies abdominal pain, nausea, vomiting, bloody stools or diarrhea [] : Denies dysuria or hematuria [] Musculoskeletal: Denies back pain or joint pain [] Integument: Denies rash or skin lesions [] Neurologic: Denies headache, focal weakness or sensory changes [] Endocrine: Denies polyuria or polydipsia [] All other systems were reviewed and found to be within normal limits, except as documented in this note. Current Medications Current Medications Current Medications Medications (Trade) Dose Ordered Sig/Kirti Start Time Stop Time Status Last Admin Dose Admin Ketorolac Tromethamine (Toradol 30mg Vial) 30 mg 1X ONCE 10/01/18 13:45 10/01/18 13:46 DC 10/01/18 13:44 30 MG Allergies Allergies Allergies Coded Allergies Type Severity Reaction Last Updated Verified No Known Drug Allergies 08/05/13 No Physical Exam Physical Exam Constitutional: Well developed, well nourished, no acute distress, non-toxic appearance. [] HENT: Normocephalic, atraumatic, bilateral external ears normal, oropharynx moist, no oral exudates, nose normal. [] Eyes: PERRLA, EOMI, conjunctiva normal, no discharge. [] Neck: Normal range of motion, no tenderness, supple, no stridor. [] Cardiovascular:Heart rate regular rhythm, no murmur [] Lungs & Thorax: Bilateral breath sounds clear to auscultation [] Abdomen: Bowel sounds normal, soft, no tenderness, no masses, no pulsatile masses. [] Skin: Warm, dry, no erythema, no rash. [] Back: No tenderness, no CVA tenderness. [] Extremities: No tenderness, no cyanosis, no clubbing, ROM intact, no edema. [] Neurologic: Alert and oriented X 3, normal motor function, normal sensory function, no focal deficits noted. [] Psychologic: Affect normal, judgement normal, mood normal. [] Current Patient Data Vital Signs Vital Signs Date Time Temp Pulse Resp B/P (MAP) Pulse Ox O2 Delivery O2 Flow Rate FiO2 10/01/18 10:50 98.3 71 16 134/69 (90) 97 Room Air 98.3 Lab Values Laboratory Tests Test 10/01/18 11:00 10/01/18 11:55 White Blood Count 7.9 x10^3/uL (4.0-11.0) Red Blood Count 4.55 x10^6/uL (3.50-5.40) Hemoglobin 13.3 g/dL (12.0-15.5) Hematocrit 39.9 % (36.0-47.0) Mean Corpuscular Volume 88 fL (79-100) Mean Corpuscular Hemoglobin 29 pg (25-35) Mean Corpuscular Hemoglobin Concent 33 g/dL (31-37) Red Cell Distribution Width 14.3 % (11.5-14.5) Platelet Count 350 x10^3/uL (140-400) Neutrophils (%) (Auto) 57 % (31-73) Lymphocytes (%) (Auto) 34 % (24-48) Monocytes (%) (Auto) 7 % (0-9) Eosinophils (%) (Auto) 3 % (0-3) Basophils (%) (Auto) 0 % (0-3) Neutrophils # (Auto) 4.4 x10^3uL (1.8-7.7) Lymphocytes # (Auto) 2.6 x10^3/uL (1.0-4.8) Monocytes # (Auto) 0.5 x10^3/uL (0.0-1.1) Eosinophils # (Auto) 0.2 x10^3/uL (0.0-0.7) Basophils # (Auto) 0.0 x10^3/uL (0.0-0.2) Prothrombin Time 13.4 SEC (11.7-14.0) Prothrombin Time INR 1.1 (0.8-1.1) D-Dimer (Tammie) 0.27 ug/mlFEU (0.00-0.50) Sodium Level 141 mmol/L (136-145) Potassium Level 3.3 mmol/L (3.5-5.1) L Chloride Level 102 mmol/L (98-107) Carbon Dioxide Level 32 mmol/L (21-32) Anion Gap 7 (6-14) Blood Urea Nitrogen 10 mg/dL (7-20) Creatinine 0.9 mg/dL (0.6-1.0) Estimated GFR (Cockcroft-Gault) 89.6 BUN/Creatinine Ratio 11 (6-20) Glucose Level 94 mg/dL (70-99) Calcium Level 8.9 mg/dL (8.5-10.1) Magnesium Level 2.0 mg/dL (1.8-2.4) Total Bilirubin 0.4 mg/dL (0.2-1.0) Aspartate Amino Transferase (AST) 19 U/L (15-37) Alanine Aminotransferase (ALT) 20 U/L (14-59) Alkaline Phosphatase 52 U/L (46-116) Creatine Kinase 235 U/L (26-192) H Creatine Kinase MB (Mass) 0.5 ng/mL (0.0-3.6) Creatine Kinase MB Relative Index 0.2 % (0-4) Troponin I Quantitative < 0.017 ng/mL (0.000-0.055) JU-Pki-Y-Type Natriuretic Peptide 27 pg/mL (0-124) Total Protein 7.2 g/dL (6.4-8.2) Albumin 3.3 g/dL (3.4-5.0) L Albumin/Globulin Ratio 0.8 (1.0-1.7) L Lipase 65 U/L (73-393) L Urine Collection Type Void Urine Color Yellow Urine Clarity Clear Urine pH 7.0 Urine Specific [place] 1.020 Urine Protein Negative mg/dL (NEG-TRACE) Urine Glucose (UA) Negative mg/dL (NEG) Urine Ketones (Stick) Negative mg/dL (NEG) Urine Blood Negative (NEG) Urine Nitrite Negative (NEG) Urine Bilirubin Negative (NEG) Urine Urobilinogen Dipstick 1.0 mg/dL (0.2 mg/dL) Urine Leukocyte Esterase Negative (NEG) Urine RBC Occ /HPF (0-2) Urine WBC 0 /HPF (0-4) Urine Squamous Epithelial Cells Occ /LPF Urine Bacteria 0 /HPF (0-FEW) Urine Mucus Slight /LPF Urine Opiates Screen Neg (NEG) Urine Methadone Screen Neg (NEG) Urine Barbiturates Neg (NEG) Urine Phencyclidine Screen Neg (NEG) Urine Amphetamine/Methamphetamine Neg (NEG) Urine Benzodiazepines Screen Neg (NEG) Urine Cocaine Screen Neg (NEG) Urine Cannabinoids Screen Neg (NEG) Urine Ethyl Alcohol Neg (NEG) Laboratory Tests 10/01/18 11:00 Laboratory Tests 10/01/18 11:00 EKG EKG EKG was done at 1038 , sinus rhythm, NO STEMI, RATE OF 72 BPM. [] Radiology/Procedures Radiology/Procedures [] Course & Med Decision Making Course & Med Decision Making Pertinent Labs and Imaging studies reviewed. (See chart for details) [] Dragon Disclaimer Dragon Disclaimer This electronic medical record was generated, in whole or in part, using a voice recognition dictation system. Departure Departure Impression: Primary Impression: Atypical chest pain Disposition: 01 HOME, SELF-CARE Condition: STABLE Referrals: NO PCP (PCP) FOLLOW UP WITH YOUR PCP FOR EVALUATION THIS WEEK. Patient Instructions: Chest Pain (Nonspecific) LORRIE LEE DO Oct 01, 2018 11:12
[2018-10-01 11:32] LABS: CALCIUM 8.9 mg/dL (8.5-10.1); CREATININE 0.9 mg/dL (0.6-1.0); GFR 89.6; POTASSIUM 3.3 mmol/L (3.5-5.1)
[2018-10-01 11:33] LABS: BASO % 0 % (0-3); EOS # 0.2 x10^3/uL (0.0-0.7); EOS % 3 % (0-3); HEMATOCRIT 39.9 % (36.0-47.0); HEMOGLOBIN 13.3 g/dL (12.0-15.5); LYMPH # 2.6 x10^3/uL (1.0-4.8); LYMPH % 34 % (24-48); MEAN CORPUSCULAR HEMOGLOBIN 29 pg (25-35); MEAN CORPUSCULAR HGB CONC 33 g/dL (31-37); MEAN CORPUSCULAR VOLUME 88 fL (79-100); MONO # 0.5 x10^3/uL (0.0-1.1); MONO % 7 % (0-9); NEUT # 4.4 x10^3uL (1.8-7.7); NEUT % 57 % (31-73); PLATELET COUNT 350 x10^3/uL (140-400); RED BLOOD COUNT 4.55 x10^6/uL (3.50-5.40); RED CELL DISTRIBUTION WIDTH 14.3 % (11.5-14.5); WHITE BLOOD COUNT 7.9 x10^3/uL (4.0-11.0)
[2018-10-01 11:39] LABS: ALBUMIN 3.3 g/dL (3.4-5.0); ALBUMIN/GLOBULIN RATIO 0.8 (1.0-1.7); TOTAL BILIRUBIN 0.4 mg/dL (0.2-1.0); TOTAL PROTEIN 7.2 g/dL (6.4-8.2)
[2018-10-01 11:45] LABS: PROTHROMBIN TIME PATIENT 13.4 SEC (11.7-14.0)
[2018-10-01 12:16] LABS: BILIRUBIN,URINE NEGATIVE (NEG); CLARITY,URINE CLEAR; COLOR,URINE YELLOW; NITRITE,URINE NEGATIVE (NEG); PROTEIN,URINE NEGATIVE (NEG-TRACE)
[2018-10-01 12:19] LABS: AMPHETAMINE/METHAMPHETAMINE NEG (NEG); BARBITURATES NEG (NEG); BENZODIAZEPINES NEG (NEG); CANNABINOIDS NEG (NEG); COCAINE NEG (NEG); METHADONE NEG (NEG); OPIATES NEG (NEG); PHENCYCLIDINE NEG (NEG)
[2018-10-01 12:26] LABS: SQUAMOUS EPITHELIAL CELL,UR OCC /LPF
[2018-10-01 12:27] LABS: BACTERIA,URINE 0 /HPF (0-FEW); RBC,URINE OCC /HPF (0-2); WBC,URINE 0 /HPF (0-4)
[2018-10-01 12:38] LABS: D-DIMER 0.27 ug/mlFEU (0.00-0.50)
[2018-10-01 13:00] VITALS: BP 117/70
[2018-10-01] MEDS ORDERED: KETOROLAC 30 MG/ML VIAL. IV ONE (13:45)
--- NOTE | 2018-10-02 13:11 | EKG ---
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
== END 2018-10-01 14:06 | disposition home or self-care (01) ==
LOC: ER 11:26
DX: R07.89 Other chest pain (principal); J45.909 Unspecified asthma, uncomplicated; I10 Essential (primary) hypertension; Z90.49 Acquired absence of other specified parts of digestive tract
CPT/HCPCS: 36415; 80053; 80307; 81001; 82550; 82553; 83690; 83735; 83880; 84484; 85025; 85379; 85610; 93005; 96374; 99284; J1885

== ENCOUNTER 2019-01-05 06:31 | Emergency (ER) | payer SELFPAY ==
[~2019-01-05] VITALS: Ht 162.6 cm; Wt 127.0 kg
--- NOTE | 2019-01-05 07:06 | PHYS DOC ---
Past Medical History Past Medical History: Asthma, Hypertension Additional Past Medical Histor: HTN WITH Past Surgical History: Cholecystectomy, , Tonsillectomy Alcohol Use: Occasionally Drug Use: None Adult General Chief Complaint Chief Complaint: MULTIPLE COMPLAINTS [facility] HPI Patient is a 28 year old female who presents with complaining of burning on urination and leg swelling. Patient complaining of dysuria for the last 3 days with urinary frequency without hematuria. Patient denies vaginal bleeding or discharge, fever and chills, nausea and vomiting. Patient also complaining of left lower extremity edema for the last 2 days with history of recent immobilization or injury. Review of Systems Review of Systems Constitutional: Denies fever or chills [] Eyes: Denies change in visual acuity, redness, or eye pain [] HENT: Denies nasal congestion or sore throat [] Respiratory: Denies cough or shortness of breath [] Cardiovascular: No additional information not addressed in HPI [] GI: Denies abdominal pain, nausea, vomiting, bloody stools or diarrhea [] : Reports dysuria and frequency Musculoskeletal: Denies back pain or joint pain [] Integument: Denies rash or skin lesions [] Neurologic: Denies headache, focal weakness or sensory changes [] Endocrine: Denies polyuria or polydipsia [] All other systems were reviewed and found to be within normal limits, except as documented in this note. Current Medications Current Medications Current Medications Medications (Trade) Dose Ordered Sig/Kirti Start Time Stop Time Status Last Admin Dose Admin Ibuprofen (Motrin) 800 mg 1X ONCE 01/05/19 11:15 01/05/19 11:16 DC 01/05/19 11:15 800 MG Allergies Allergies Allergies Coded Allergies Type Severity Reaction Last Updated Verified No Known Drug Allergies 08/05/13 No Physical Exam Physical Exam Constitutional: Well developed, well nourished, mild distress, non-toxic ap pearance. [] HENT: Normocephalic, atraumatic. Eyes: PERRLA, EOMI, conjunctiva normal, no discharge. [] Neck: Normal range of motion, no tenderness, supple, no stridor. [] Cardiovascular:Heart rate regular rhythm, no murmur [] Lungs & Thorax: Bilateral breath sounds clear to auscultation [] Abdomen: Bowel sounds normal, soft, no tenderness, no masses, no pulsatile masses. [] Skin: Warm, dry, no erythema, no rash. [] Back: No tenderness, no CVA tenderness. [] Extremities: Left lower extremity with trace edema without Homans sign or neurovascular deficit, no tenderness, no cyanosis, no clubbing, ROM intact, no edema. [] Neurologic: Alert and oriented X 3, normal motor function, normal sensory function, no focal deficits noted. [] Psychologic: Affect normal, judgement normal, mood normal. [] Current Patient Data Vital Signs Vital Signs Date Time Temp Pulse Resp B/P (MAP) Pulse Ox O2 Delivery O2 Flow Rate FiO2 01/05/19 11:15 86 16 112/60 (77) 97 01/05/19 06:41 97.4 Room Air 97.4 Lab Values Laboratory Tests Test 01/05/19 06:46 01/05/19 06:48 POC Urine HCG, Qualitative Hcg negative (Negative) Urine Collection Type Unknown Urine Color Yellow Urine Clarity Clear Urine pH 5.0 Urine Specific [place] 1.020 Urine Protein Negative mg/dL (NEG-TRACE) Urine Glucose (UA) Negative mg/dL (NEG) Urine Ketones (Stick) Negative mg/dL (NEG) Urine Blood Trace (NEG) Urine Nitrite Negative (NEG) Urine Bilirubin Negative (NEG) Urine Urobilinogen Dipstick 0.2 mg/dL (0.2 mg/dL) Urine Leukocyte Esterase Small (NEG) Urine RBC 0 /HPF (0-2) Urine WBC 1-4 /HPF (0-4) Urine Squamous Epithelial Cells Few /LPF Urine Bacteria 0 /HPF (0-FEW) Urine Hyaline Casts Few /HPF Urine Mucus Marked /LPF EKG EKG [] Radiology/Procedures Radiology/Procedures [][facility] [address] [place], [place] [id number] IMAGING REPORT Signed PATIENT: DANIEL PARADA ACCOUNT: [id number] : 1990 LOCATION: ER AGE: 28 SEX: F EXAM STATUS: REG ER ORD. PHYSICIAN: NATHAN MEDINA MD REASON: edema PROCEDURE: VENOUS LOWER EXTREMITY LEFT Examination: Left Lower Extremity Venous Doppler Ultrasound History: Left lower extremity edema Comparison: None Procedure: Shannon scale, color flow 2D and spectal waveform analysis images are obtained with and without compression in the area of the common femoral vein, superficial femoral vein - femoral vein junction, main femoral vein (superficial femoral vein) and popliteal vein. Veins of the proximal calf are also imaged. Findings: Limited examination due to patient body habitus.There is normal duplex flow, color flow and compressibility of all visualized vein segments. No evidence of deep venous thrombus is present. Impression: No evidence of DVT in the visualized left lower extremity venous system. Electronically signed by: Avery Abdalla MD (01/05/2019 10:32 AM) [facility] DICTATED and SIGNED BY: AVERY ABDALLA MD DATE: 01/05/19 1032 Course & Med Decision Making Course & Med Decision Making Pertinent Labs and Imaging studies reviewed. (See chart for details) I've spoken with the patient and/or caregivers. I've explained the patient's condition, diagnosis and treatment plan based on information available to me at this time. I've answered the patient's and/or caregivers questions and addressed any concerns. The patient and/or caregivers have a good understanding the patient's diagnosis, condition and treatment plan as can be expected at this point. Vital signs have been stabilized. The patient's condition is stable for discharge from the emergency department. The patient will pursue further outpatient evaluation with her primary care provider or other designated consulting physician as outlined in the discharge instructions. Patient and/or caregivers are agreeable to this plan of care and follow-up instructions have been explained in detail. The patient and/or caregivers have received these instructions in written format and expressed understanding of these discharge instructions. The patient and her caregivers are aware that if any significant change in condition or worsening of symptoms should prompt him to immediately return to this of the closest emergency department. If an emergent department is not readily available I would encourage him to call 911. Benjamin Disclaimer Dragon Disclaimer This electronic medical record was generated, in whole or in part, using a voice recognition dictation system. Departure Departure Impression: Primary Impression: Dysuria Additional Impression: Leg pain, left Disposition: HOME, SELF-CARE (at 1102) Condition: STABLE Referrals: NO PCP (PCP) Patient Instructions: Dysuria, Muscle Strain Additional Instructions: Drink plenty of liquids Follow-up with your primary care physician in 3-5 days Return to ER if not getting better Scripts Phenazopyridine Hcl (PYRIDIUM) 100 Mg Tablet 100 MG PO TID for dysuria, #10 TAB Prov: NATHAN MEDINA MD 01/05/19 Naproxen (NAPROSYN) 500 Mg Tablet 1 TAB PO BID for pain, #20 TAB Prov: NATHAN MEDINA MD 01/05/19 Problem Qualifiers NATHAN MEDINA MD Jan 05, 2019 07:06
[2019-01-05 07:21] LABS: BILIRUBIN,URINE NEGATIVE (NEG); CLARITY,URINE CLEAR; COLOR,URINE YELLOW; NITRITE,URINE NEGATIVE (NEG); PROTEIN,URINE NEGATIVE (NEG-TRACE); UROBILINOGEN,URINE 0.2 mg/dL (0.2 mg/dL)
[2019-01-05 07:48] LABS: BACTERIA,URINE 0 /HPF (0-FEW); RBC,URINE 0 /HPF (0-2); SQUAMOUS EPITHELIAL CELL,UR FEW /LPF
[2019-01-05 07:49] LABS: HYALINE CASTS, URINE FEW /HPF
--- NOTE | 2019-01-05 10:35 | RAD ---
Examination: Left Lower Extremity Venous Doppler Ultrasound History: Left lower extremity edema Comparison: None Procedure: Shannon scale, color flow 2D and spectal waveform analysis images are obtained with and without compression in the area of the common femoral vein, superficial femoral vein - femoral vein junction, main femoral vein (superficial femoral vein) and popliteal vein. Veins of the proximal calf are also imaged. Findings: Limited examination due to patient body habitus.There is normal duplex flow, color flow and compressibility of all visualized vein segments. No evidence of deep venous thrombus is present. Impression: No evidence of DVT in the visualized left lower extremity venous system. Electronically signed by: Avery Abdalla MD (01/05/2019 10:32 AM) [facility]
[2019-01-05] MEDS ORDERED: NAPR-683 PO (11:07)
[2019-01-05] MEDS ORDERED: PHEN100T82 PO (11:11)
[2019-01-05 11:15] VITALS: BP 112/60
[2019-01-05] MEDS ORDERED: IBUPROFEN 400 MG TABLET. PO ONE (11:15)
== END 2019-01-05 11:19 | disposition home or self-care (01) ==
LOC: ER 06:31
DX: R30.0 Dysuria (principal); R35.0 Frequency of micturition; M79.605 Pain in left leg; R60.0 Localized edema; J45.909 Unspecified asthma, uncomplicated; I10 Essential (primary) hypertension; Z90.49 Acquired absence of other specified parts of digestive tract; Z90.89 Acquired absence of other organs; Z98.890 Other specified postprocedural states
CPT/HCPCS: 81001; 81025; 87086; 93971; 99285-25

== ENCOUNTER 2019-02-28 18:25 | Emergency (ER) | payer SELFPAY ==
[~2019-02-28] VITALS: Ht 162.6 cm; Wt 127.0 kg
[~2019-02-28 18:25] MED LIST changes: +NAPR-683 PO; -PANT40TA3 PO; +PANT40TA77 PO; +PHEN100T82 PO
[2019-02-28 19:44] LABS: BILIRUBIN,URINE NEGATIVE (NEG); CLARITY,URINE CLEAR; COLOR,URINE YELLOW; NITRITE,URINE NEGATIVE (NEG); PROTEIN,URINE NEGATIVE (NEG-TRACE)
[2019-02-28 19:54] LABS: BACTERIA,URINE 0 /HPF (0-FEW); SQUAMOUS EPITHELIAL CELL,UR MANY /LPF; TRICHOMONAS,URINE PRESENT
[2019-02-28] MEDS ORDERED: AMOXICILLIN/K CLAV 875/125MG TABLET. PO ONE (20:00)
[2019-02-28] MEDS ORDERED: KETOROLAC 30 MG/ML VIAL. IM ONE (20:00)
[2019-02-28] MEDS ORDERED: DEXAMETHASONE 4 MG TABLET PO ONE (20:00)
[2019-02-28] MEDS ORDERED: ONDANSETRON ODT 4 MG TAB.RAPDIS. PO ONE (20:15)
[2019-02-28] MEDS ORDERED: AMOX1TAB61 PO (20:27)
[2019-02-28] MEDS ORDERED: PRED20TA PO (20:27)
[2019-02-28] MEDS ORDERED: CHLO15MO2 PO (20:27)
--- NOTE | 2019-02-28 20:28 | PHYS DOC ---
Past Medical History Past Medical History: Asthma, Hypertension Additional Past Medical Histor: HTN WITH Past Surgical History: Cholecystectomy, , Tonsillectomy Alcohol Use: Occasionally Drug Use: None Adult General Chief Complaint Chief Complaint: LOWER EXTREMITY SWELLING HPI HPI Patient is a 28 year old [f__sex] who presents with [] Review of Systems Review of Systems Constitutional: Denies fever or chills [] Eyes: Denies change in visual acuity, redness, or eye pain [] HENT: Denies nasal congestion or sore throat [] Respiratory: Denies cough or shortness of breath [] Cardiovascular: No additional information not addressed in HPI [] GI: Denies abdominal pain, nausea, vomiting, bloody stools or diarrhea [] : Denies dysuria or hematuria [] Musculoskeletal: Denies back pain or joint pain [] Integument: Denies rash or skin lesions [] Neurologic: Denies headache, focal weakness or sensory changes [] Endocrine: Denies polyuria or polydipsia [] All other systems were reviewed and found to be within normal limits, except as documented in this note. Current Medications Current Medications Current Medications Medications (Trade) Dose Ordered Sig/Kirti Start Time Stop Time Status Last Admin Dose Admin Amoxicillin/ Clavulanate Potassium (Augmentin 875/ 125mg) 1 tab 1X ONCE 02/28/19 20:00 02/28/19 20:01 DC 02/28/19 19:52 1 TAB Dexamethasone (Decadron) 10 mg 1X ONCE 02/28/19 20:00 02/28/19 20:01 DC 02/28/19 19:52 10 MG Ketorolac Tromethamine (Toradol 30mg Vial) 30 mg 1X ONCE 02/28/19 20:00 02/28/19 20:01 DC 02/28/19 19:52 30 MG Ondansetron HCl (Zofran Odt) 4 mg 1X ONCE 02/28/19 20:15 02/28/19 20:16 DC 02/28/19 19:51 4 MG Allergies Allergies Allergies Coded Allergies Type Severity Reaction Last Updated Verified No Known Drug Allergies 08/05/13 No Physical Exam Physical Exam Constitutional: Well developed, well nourished, no acute distress, non-toxic appearance. [] HENT: Normocephalic, atraumatic, bilateral external ears normal, oropharynx moist, no oral exudates, nose normal. [] Eyes: PERRLA, EOMI, conjunctiva normal, no discharge. [] Neck: Normal range of motion, no tenderness, supple, no stridor. [] Cardiovascular:Heart rate regular rhythm, no murmur [] Lungs & Thorax: Bilateral breath sounds clear to auscultation [] Abdomen: Bowel sounds normal, soft, no tenderness, no masses, no pulsatile masses. [] Skin: Warm, dry, no erythema, no rash. [] Back: No tenderness, no CVA tenderness. [] Extremities: No tenderness, no cyanosis, no clubbing, ROM intact, no edema. [] Neurologic: Alert and oriented X 3, normal motor function, normal sensory function, no focal deficits noted. [] Psychologic: Affect normal, judgement normal, mood normal. [] Current Patient Data Vital Signs Vital Signs Date Time Temp Pulse Resp B/P (MAP) Pulse Ox O2 Delivery O2 Flow Rate FiO2 02/28/19 19:02 97.9 71 18 161/116 (131) 100 Room Air 97.9 Lab Values Laboratory Tests Test 02/28/19 18:36 02/28/19 19:39 Urine Collection Type Unknown Urine Color Yellow Urine Clarity Clear Urine pH 7.0 Urine Specific [place] 1.020 Urine Protein Negative mg/dL (NEG-TRACE) Urine Glucose (UA) Negative mg/dL (NEG) Urine Ketones (Stick) Negative mg/dL (NEG) Urine Blood Trace (NEG) Urine Nitrite Negative (NEG) Urine Bilirubin Negative (NEG) Urine Urobilinogen Dipstick 1.0 mg/dL (0.2 mg/dL) Urine Leukocyte Esterase Small (NEG) Urine RBC 1-2 /HPF (0-2) Urine WBC 5-10 /HPF (0-4) Urine Squamous Epithelial Cells Many /LPF Urine Bacteria 0 /HPF (0-FEW) Urine Trichomonas Present POC Urine HCG, Qualitative Hcg negative (Negative) EKG EKG [] Radiology/Procedures Radiology/Procedures PROCEDURE: VENOUS LOWER EXTREMITY LEFT INDICATION: Leg pain and swelling COMPARISON: January 05, 2019 TECHNIQUE: Grayscale, color and doppler ultrasound images were obtained of the left lower extremity venous vasculature. LEFT: No thrombus identified in the common femoral vein, femoral vein, popliteal vein or visualized calf veins. IMPRESSION: 1. No thrombus identified in deep venous system of the left lower extremity. 2. Popliteal fossa cyst measuring 29 x 27 mm. 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 This is adjacent to the vessels. Electronically signed by: Pierre Melchor MD (02/28/2019 8:34 PM) [facility] PROCEDURE: KNEE LEFT 3V INDICATION: Knee pain and swelling COMPARISON: None. IMPRESSION: Left knee: 3 views obtained. No definite acute fracture or dislocation. Degenerative changes of the knee are identified which is more than typically seen for the patient's age. This includes osteophyte formation at the medial and lateral compartment with joint space narrowing medially. Joint effusion is identified as well as edema within Hoffa's fat pad. Ossific density adjacent to the inferior pole the patella. Appears well-corticated therefore would suspect that this is a chronic finding either from avulsion injury or a calcification within the tendon or adjacent soft tissues. Electronically signed by: Pierre Melchor MD (02/28/2019 8:40 PM) [facility] Course & Med Decision Making Course & Med Decision Making Pertinent Labs and Imaging studies reviewed. (See chart for details) [] Dragon Disclaimer Dragon Disclaimer This electronic medical record was generated, in whole or in part, using a voice recognition dictation system. Departure Departure Impression: Primary Impression: Arthritis of knee, left Additional Impressions: Leg swelling Dental caries Nausea Murrell cyst Disposition: 01 HOME, SELF-CARE Condition: STABLE Referrals: NO PCP (PCP) BEATRICE BARON MD Patient Instructions: Arthritis, Nonspecific, [id number], Murrell's Cyst, Dental Caries, Knee Wraps (Elastic Bandage) and RICE, Nausea, Adult, Jync-ox-Ltis Scripts Ondansetron (ONDANSETRON ODT) 4 Mg Tab.rapdis 1 TAB PO PRN Q6-8HRS PRN for NAUSEA, #16 TAB Prov: DEEPA NEWMAN DO 02/28/19 Chlorhexidine Gluconate (PERIDEX) 15 Ml Mouthwash 15 ML PO BID, #946 ML Prov: DEEPA NEWMAN DO 02/28/19 Amoxicillin/Potassium Clav (AUGMENTIN 875-125 TABLET) 1 Each Tablet 1 TAB PO BID, #14 TAB Prov: DEEPA NEWMAN DO 02/28/19 Prednisone (PREDNISONE) 20 Mg Tablet 2 TAB PO DAILY, #8 TAB Start this prescription tomorrow, Monday03/01/19 Prov: DEEPA NEWMAN DO 02/28/19 Problem Qualifiers Additional Impressions: Murrell cyst Laterality: left Qualified Codes: M71.22 - Synovial cyst of popliteal space [Murrell], left knee DEEPA NEWMAN DO Feb 28, 2019 20:28
[2019-02-28] MEDS ORDERED: ONDA4TAB12 PO (20:30)
--- NOTE | 2019-02-28 20:37 | RAD ---
INDICATION: Leg pain and swelling COMPARISON: January 05, 2019 TECHNIQUE: Grayscale, color and doppler ultrasound images were obtained of the left lower extremity venous vasculature. LEFT: No thrombus identified in the common femoral vein, femoral vein, popliteal vein or visualized calf veins. IMPRESSION: 1. No thrombus identified in deep venous system of the left lower extremity. 2. Popliteal fossa cyst measuring 29 x 27 mm. 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 This is adjacent to the vessels. Electronically signed by: Pierre Melchor MD (02/28/2019 8:34 PM) [facility]
--- NOTE | 2019-02-28 20:42 | RAD ---
INDICATION: Knee pain and swelling COMPARISON: None. IMPRESSION: Left knee: 3 views obtained. No definite acute fracture or dislocation. Degenerative changes of the knee are identified which is more than typically seen for the patient's age. This includes osteophyte formation at the medial and lateral compartment with joint space narrowing medially. Joint effusion is identified as well as edema within Hoffa's fat pad. Ossific density adjacent to the inferior pole the patella. Appears well-corticated therefore would suspect that this is a chronic finding either from avulsion injury or a calcification within the tendon or adjacent soft tissues. Electronically signed by: Pierre Melchor MD (02/28/2019 8:40 PM) [facility]
[2019-02-28 20:46] VITALS: BP 164/98
== END 2019-02-28 20:50 | disposition home or self-care (01) ==
LOC: ER 18:25
DX: M71.22 Synovial cyst of popliteal space [Baker], left knee (principal); M17.12 Unilateral primary osteoarthritis, left knee; M79.89 Other specified soft tissue disorders; K02.9 Dental caries, unspecified; R11.0 Nausea; J45.909 Unspecified asthma, uncomplicated; I10 Essential (primary) hypertension; Z90.49 Acquired absence of other specified parts of digestive tract; Z98.890 Other specified postprocedural states; Z90.89 Acquired absence of other organs
CPT/HCPCS: 73562; 81001; 81025; 87086; 93971; 96372; 99285; J1885; J8540; Q0162

== ENCOUNTER 2019-08-04 08:26 | Emergency (ER) | payer SELFPAY ==
[~2019-08-04] VITALS: Ht 165.1 cm; Wt 127.0 kg
[~2019-08-04 08:26] MED LIST changes: +CHLO15MO2 PO; +ONDA4TAB12 PO
[2019-08-04 08:33] VITALS: BP 135/73
--- NOTE | 2019-08-04 09:43 | PHYS DOC ---
Past Medical History Past Medical History: Asthma, Hypertension Additional Past Medical Histor: HTN WITH Past Surgical History: Cholecystectomy, , Tonsillectomy Additional Information: Nonsmoker Alcohol Use: Occasionally Drug Use: None Adult General Chief Complaint Chief Complaint: CHEST WALL PAIN HPI HPI Patient is a 28 year old female with PMH of HTN who presents with dental pain and chest discomfort. Pt reports having dental pain since yesterday. She rates her pain as 8/10. Pt also reports having some N/V and developed some burning chest pain since last night. She reports it is similar to when she has reflux symptoms in the past and usually relieved when she took baking soda. She endorses feeling more fatigue in the past few months and was told by her ObGyn that would related to her Mirena being old and need to be removed. Denies any SOB, palpitation, or recent travel. Review of Systems Review of Systems Constitutional: Denies fever or chills Eyes: Denies redness or eye pain HENT: Denies nasal congestion or sore throat; reports toothache Respiratory: Denies cough or shortness of breath Cardiovascular: Denies chest pain or palpitations GI: Denies abdominal pain. Positive nausea, or vomiting : Denies dysuria or hematuria Musculoskeletal: Denies back pain or joint pain Integument: Denies rash or skin lesions Neurologic: Denies headache, focal weakness or sensory changes Complete systems were reviewed and found to be within normal limits, except as documented in this note. Current Medications Current Medications Current Medications Medications (Trade) Dose Ordered Sig/Kirti Start Time Stop Time Status Last Admin Dose Admin Amoxicillin/ Clavulanate Potassium (Augmentin 875/ 125mg) 1 tab 1X ONCE 08/04/19 10:00 08/04/19 10:01 DC 08/04/19 09:58 1 TAB Bupivacaine HCl/ Epinephrine Bitart (Sensorcain-Epi 0.5%-1:403847 Mpf) 30 ml 1X ONCE 08/04/19 10:00 08/04/19 10:01 DC 08/04/19 09:56 30 ML Dexamethasone (Decadron) 10 mg 1X ONCE 08/04/19 10:00 08/04/19 10:01 DC 08/04/19 09:58 10 MG Famotidine (Pepcid) 20 mg 1X ONCE 08/04/19 10:00 08/04/19 10:01 DC 08/04/19 09:58 20 MG Allergies Allergies Allergies Coded Allergies Type Severity Reaction Last Updated Verified No Known Drug Allergies 08/05/13 No Physical Exam Physical Exam Constitutional: Well developed, well nourished, no acute distress, non-toxic appearance HENT: Normocephalic, atraumatic, oropharynx moist, fractured and decayed left mandibular molars, no visible gum abscess, sublingual tenderness or uvula deviation Eyes: PERRL, EOMI, conjunctiva normal, no discharge Neck: Normal range of motion, no tenderness, supple Cardiovascular: Heart rate normal, regular rhythm Lungs & Thorax: Bilateral breath sounds clear to auscultation, no wheezing Abdomen: Soft, no tenderness Skin: Warm, dry, no erythema, no rash Extremities: No tenderness, ROM intact, no edema Neurologic: Alert and oriented X 3, no focal deficits noted Psychologic: Affect normal, judgement normal Current Patient Data Vital Signs Vital Signs Date Time Temp Pulse Resp B/P (MAP) Pulse Ox O2 Delivery O2 Flow Rate FiO2 08/04/19 08:33 97.9 73 16 135/73 (93) 98 Room Air 97.9 EKG EKG 9:37:34 Sinus rhythm, normal axis. no ST elevation, Radiology/Procedures Radiology/Procedures PROCEDURE: CHEST PA & LATERAL CHEST PA LATERAL History: Chest pain.. Cardiomediastinal silhouette is not enlarged. No evidence of pneumothorax. No pleural effusion. No consolidating airspace opacity is seen. The bones appear intact. IMPRESSION: No evidence of consolidating infiltrate. Electronically signed by: Kin Glynn MD (08/04/2019 9:55 AM) [facility] Course & Med Decision Making Course & Med Decision Making Pertinent Imaging studies reviewed. (See chart for details) Patient is a 28 year old female with PMH of HTN who presents with dental pain and chest discomfort.HCG negative. CXR without acute process. Symptomatic treatment provided including dental block and pepcid with interval improvement. Patient stable for discharge with outpatient follow-up with PCP. Discussed findings and plan with patient, who acknowledges understanding and agreement. Dragon Disclaimer Dragon Disclaimer This electronic medical record was generated, in whole or in part, using a voice recognition dictation system. Additional Procedures Progress Dental block:- Left inferior alveolar block Verbal consent obtained. Time out performed. Hand hygiene utilized. Anesthesia obtained via a 25-gauge hypodermic needle with (3) mL's of bupivicaine 0.5% with epinephrine for left inferior alveolar dental block. Patient tolerated procedure well and without difficulty. Reports interval improvement of symptoms. Departure Departure Impression: Primary Impression: Dentalgia Additional Impressions: Dental caries Gastritis Disposition: 01 HOME, SELF-CARE Condition: STABLE Referrals: NO PCP (PCP) ZARIA AMRIN MD Patient Instructions: Dental Caries, Gastritis, Adult, [id number]-md-Ueeo, Toothache- Brief Additional Instructions: Use over the counter Tylenol and Ibuprofen for pain or discomfort. Scripts Chlorhexidine Gluconate (PERIDEX) 15 Ml Mouthwash 15 ML PO BID for 10 Days, #473 ML 0 Refills Prov: KIN NEWMAN DO 08/04/19 Amoxicillin/Potassium Clav (AUGMENTIN 875-125 TABLET) 1 Each Tablet 1 TAB PO BID, #14 TAB Prov: KIN NEWMAN DO 08/04/19 Famotidine (PEPCID) 20 Mg Tablet 20 MG PO HS, #14 TAB Prov: KIN NEWMAN DO 08/04/19 The HEART Score for CP Pts HEART Score for Chest Pain: HEART Score for Chest Pain Response (Comments) Value History Slighlty/Non-Suspicious 0 ECG Normal 0 Age < 45 0 Risk Factors 1 or 2 Risk Factors 1 Total 1 Risk Factors: Risk Factors: DM, Current or recent (<one month) smoker, HTN, HLP, family history of CAD, obesity. Risk Scores: Score 0 - 3: 2.5% MACE over next 6 weeks - Discharge Home Score 4 - 6: 20.3% MACE over next 6 weeks - Admit for Clinical Observation Score 7 - 10: 72.7% MACE over next 6 weeks - Early Invasive Strategies Problem Qualifiers Additional Impressions: Gastritis Gastritis type: unspecified gastritis Chronicity: acute Gastritis bleeding: presence of bleeding unspecified Qualified Codes: K29.00 - Acute gastritis without bleeding KIN NEWMAN DO Aug 04, 2019 09:43
--- NOTE | 2019-08-04 09:58 | RAD ---
CHEST PA LATERAL History: Chest pain.. Cardiomediastinal silhouette is not enlarged. No evidence of pneumothorax. No pleural effusion. No consolidating airspace opacity is seen. The bones appear intact. IMPRESSION: No evidence of consolidating infiltrate. Electronically signed by: Kin Glynn MD (08/04/2019 9:55 AM) [facility]
[2019-08-04] MEDS ORDERED: FAMOTIDINE 20 MG TABLET. PO ONE (10:00)
[2019-08-04] MEDS ORDERED: AMOXICILLIN/K CLAV 875/125MG TABLET. PO ONE (10:00)
[2019-08-04] MEDS ORDERED: DEXAMETHASONE 4 MG TABLET PO ONE (10:00)
[2019-08-04] MEDS ORDERED: BUPIVACAINE-EPI 0.5%-1:200000 MPF 30 ML VIAL. INJ ONE (10:00)
[2019-08-04] MEDS ORDERED: CHLO15MO2 PO (10:13)
[2019-08-04] MEDS ORDERED: AMOX1TAB61 PO (10:13)
[2019-08-04] MEDS ORDERED: FAMO-63 PO (10:13)
--- NOTE | 2019-08-05 07:32 | EKG ---
[facility] [address] [place] [id number] Test Date: 2019-08-04 Test Time: 09:37:34 Pat Name: DANIEL PARADA Department: Room: Gender: F [employer]: : 1990 Requested By: DEEPA NEWMAN Order Number: [id number] Reading MD: Measurements Intervals [place] Rate: 65 P: 28 SD: 220 QRS: 25 QRSD: 82 T: 21 QT: 402 QTc: 418 Interpretive Statements SINUS RHYTHM PROLONGED SD INTERVAL NON SPECIFIC T ABNORMALITY ABNORMAL ECG No previous ECG available for comparison
== END 2019-08-04 10:14 | disposition home or self-care (01) ==
LOC: ER 08:26
DX: K02.9 Dental caries, unspecified (principal); K08.89 Other specified disorders of teeth and supporting structures; K29.00 Acute gastritis without bleeding; J45.909 Unspecified asthma, uncomplicated; I10 Essential (primary) hypertension; Z90.49 Acquired absence of other specified parts of digestive tract; Z90.89 Acquired absence of other organs; Z98.890 Other specified postprocedural states; Z79.899 Other long term (current) drug therapy
CPT/HCPCS: 64400; 71046; 93005; 99284; J3490; J8540

== ENCOUNTER 2021-01-12 16:42 | Emergency (ER) | payer SELFPAY ==
[~2021-01-12] VITALS: Ht 162.6 cm; Wt 127.3 kg
[~2021-01-12 16:42] MED LIST changes: -CLIN300C8 PO; +CLIN300C9 PO; +FAMO-63 PO; -HYDR50TA6 PO; +HYDR50TA9 PO
[2021-01-12 18:30] VITALS: BP 161/96
[2021-01-12] MEDS ORDERED: PENI500T PO (18:41)
--- NOTE | 2021-01-12 18:42 | ED.ADGEN ---
Past Medical History Past Medical History: Asthma, Hypertension Additional Past Medical Histor: HTN WITH Past Surgical History: Cholecystectomy, , Tonsillectomy Smoking Status: Never Smoker Alcohol Use: Occasionally Drug Use: None General Adult EDM: Chief Complaint: DENTAL PROBLEM HPI: HPI: Patient is 30-year-old female presents to the emergency room complaining of left lower tooth pain and swelling. Patient states that this started a few days ago. She has a appointment with a dentist next week but states that her face is swollen this morning so she wanted to get it checked out. She states that the swelling is gone down. She does have some pain with chewing. She denies any difficulty with talking or swallowing. She has not had any difficulty with breathing. She denies any kind of fever. Review of Systems: Review of Systems: Complete ROS is negative unless otherwise documented in HPI Allergies: Allergies: Allergies Coded Allergies Type Severity Reaction Last Updated Verified No Known Drug Allergies 08/05/13 No Physical Exam: PE: General: Awake, alert, NAD. Well Nourished, well hydrated. Cooperative HEENT: Atraumatic, EOMI, PERRL, airway patent, moist oral mucosa, poor dentition, left lower gum swelling with fluctuance Neck: Supple, trachea midline Respiratory: CTA bilaterally, normal effort, no wheezing/crackles CV: RRR, no murmur, cap refill <2 GI: Soft, nondistended, nontender, no masses MSK: No obvious deformities Skin: Warm, dry, intact Neuro: A&O x3, speech NL, sensory and motor grossly intact, no focal deficits Psych: Normal affect, normal mood, not suicidal or homicidal EKG: EKG: [] Heart Score: C/O Chest Pain: N/A Risk Factors: Risk Factors: DM, Current or recent (<one month) smoker, HTN, HLP, family history of CAD, obesity. Risk Scores: Score 0 - 3: 2.5% MACE over next 6 weeks - Discharge Home Score 4 - 6: 20.3% MACE over next 6 weeks - Admit for Clinical Observation Score 7 - 10: 72.7% MACE over next 6 weeks - Early Invasive Strategies Radiology/Procedures: Radiology/Procedures: [] Course & Med Decision Making: Course & Med Decision Making Pertinent Labs and Imaging studies reviewed. (See chart for details) Patient is 30-year-old female presents to the emergency room with a dental abscess. I did discuss with the patient that we should open the abscess and patient does not want to do this at this time. She does not have any si gnificant swelling of her face, shortness of breath, difficulty swallowing. She does have an appointment with a dentist coming up. We will place her on antibiotics at this time and I have discussed with her that if she does develop any fever, swelling, difficulty swelling, difficulty talking that she should return emergently to the emergency room for drainage and antibiotics. Patient's test results and vitals while in the ED were fully reviewed and discussed with the patient. Patient is stable and at this time does not need admission to the hospital. We have discussed strict return precautions and the importance of following up with their Primary Care Physician. Patient stated understanding and was given an opportunity to ask any questions. Patient is in agreement with plan. Benjamin Disclaimer: Benjamin Disclaimer: This electronic medical record was generated, in whole or in part, using a voice recognition dictation system. Departure Departure Impression: Primary Impression: Dental abscess Disposition: HOME / SELF CARE / HOMELESS Condition: STABLE Referrals: NO PCP (PCP) Patient Instructions: Dental Abscess Scripts Penicillin V Potassium (PENICILLIN V POTASSIUM) 500 Mg Tablet 2 TAB PO Q12HR, #40 TAB Prov: JUAN HENNING MD 01/12/21 JUAN HENNING MD Jan 12, 2021 18:42
== END 2021-01-12 19:27 | disposition home or self-care (01) ==
LOC: ER 16:42
DX: K04.7 Periapical abscess without sinus (principal); J45.909 Unspecified asthma, uncomplicated; I10 Essential (primary) hypertension
CPT/HCPCS: 99283